=== PATIENT | female | born 1935 | race Caucasian/White ===

== ENCOUNTER 2017-10-22 17:45 | Emergency (ER) | payer MEDICARE, MEDICAID ==
[~2017-10-22] VITALS: Ht 157.5 cm; Wt 49.9 kg
[~2017-10-22 17:45] MED LIST: LEVO500T2 PO; PRED10TA PO; VIT1TABL76 PO
[2017-10-22 18:03] VITALS: BP 117/58
[2017-10-22] MEDS ORDERED: TETanus/Pertussis (Acell)/Diphther VAC/PF (Tdap-Adult) 0.5ml syringe IM ONE (19:05)
[2017-10-22 19:16] LABS: BASOPHILS % (AUTO) 0.4 % (0-1); EOSINOPHILS # (AUTO) 0.1 X10'3 (0-0.9); EOSINOPHILS % (AUTO) 1.7 % (0-6); HEMATOCRIT 40.2 % (35.0-45.0); HEMOGLOBIN 13.6 g/dl (12.0-16.0); LYMPHOCYTES # (AUTO) 2.2 X10'3 (1.1-4.8); LYMPHOCYTES % (AUTO) 26.7 % (21-51); MEAN CORPUSCULAR HEMOGLOBIN 32.9 PG (27.0-31.0); MEAN CORPUSCULAR HGB CONC 33.8 % (33.0-36.5); MEAN CORPUSCULAR VOLUME 97.4 FL (78-98); MEAN PLATELET VOLUME 8.2 FL (7.4-10.4); MONOCYTES # (AUTO) 0.6 X10'3 (0-0.9); MONOCYTES % (AUTO) 7.6 % (2-12); NEUTROPHILS # (AUTO) 5.1 X10'3 (1.8-7.7); NEUTROPHILS % (AUTO) 63.6 % (42-75); PLATELET COUNT 194 X10'3 (140-440); RED BLOOD COUNT 4.12 X10'6 (4.20-5.60); RED CELL DISTRIBUTION WIDTH 15.8 % (11.5-14.5); WHITE BLOOD COUNT 8.1 X10'3 (4.5-11.0)
[2017-10-22 19:32] LABS: ALANINE AMINOTRANSFERASE 24 U/L (12-78); ALBUMIN 3.2 G/DL (3.4-5.0); ALBUMIN/GLOBULIN RATIO 0.8 (1.1-1.5); ALKALINE PHOSPHATASE 95 IU/L (46-116); ANION GAP 12 (8-16); ASPARTATE AMINO TRANSFERASE 36 U/L (10-37); BILIRUBIN,TOTAL 0.5 MG/DL (0.1-1.0); BLOOD UREA NITROGEN 2 MG/DL (7-18); BUN/CREATININE RATIO 4.1 (6.6-38.0); CALCIUM 8.5 MG/DL (8.5-10.1); CHLORIDE 100 MMOL/L (99-107); CREATININE 0.49 MG/DL (0.40-0.90); GLUCOSE 78 MG/DL (70-104); POTASSIUM 3.3 MMOL/L (3.5-5.1); SODIUM 142 MMOL/L (135-145); TOTAL CARBON DIOXIDE 30.1 MMOL/L (24-32); TOTAL PROTEIN 7.3 G/DL (6.4-8.2); eGFR > 90 ML/MIN
[2017-10-22 19:35] LABS: ETHANOL 0.225 GM/DL (0.0-0.010)
== END 2017-10-22 19:24 | disposition left against medical advice (07) ==
LOC: ER 17:45
DX: S00.11XA Contusion of right eyelid and periocular area, initial encounter (principal); S60.511A Abrasion of right hand, initial encounter; F10.129 Alcohol abuse with intoxication, unspecified; J44.9 Chronic obstructive pulmonary disease, unspecified; E11.9 Type 2 diabetes mellitus without complications; F17.200 Nicotine dependence, unspecified, uncomplicated; Z79.899 Other long term (current) drug therapy; Z88.0 Allergy status to penicillin; Z88.2 Allergy status to sulfonamides; W18.39XA Other fall on same level, initial encounter; Y93.89 Activity, other specified; Y92.89 Other specified places as the place of occurrence of the external cause; Y99.8 Other external cause status
CPT/HCPCS: 36415; 80053; 80320; 82140; 84484; 85025; 99284

== ENCOUNTER 2017-10-24 07:08 | Emergency (ER) | payer MEDICARE, MEDICAID ==
[~2017-10-24] VITALS: Ht 149.9 cm; Wt 48.1 kg
[2017-10-24 08:38] VITALS: BP 110/48
== END 2017-10-24 08:41 | disposition home or self-care (01) ==
LOC: ER 07:08
DX: F10.129 Alcohol abuse with intoxication, unspecified (principal); R06.02 Shortness of breath; J44.9 Chronic obstructive pulmonary disease, unspecified; E11.9 Type 2 diabetes mellitus without complications; F17.210 Nicotine dependence, cigarettes, uncomplicated; Z98.890 Other specified postprocedural states; Z88.0 Allergy status to penicillin; Z88.2 Allergy status to sulfonamides
CPT/HCPCS: 99284

== ENCOUNTER 2017-11-03 19:27 | Emergency (ER) | payer MEDICARE, MEDICAID ==
[~2017-11-03 19:27] MED LIST changes: -LEVO500T2 PO
[2017-11-03 20:04] LABS: BASOPHILS % (AUTO) 0.4 % (0-1); EOSINOPHILS # (AUTO) 0.1 X10'3 (0-0.9); HEMATOCRIT 37.8 % (35.0-45.0); HEMOGLOBIN 12.7 g/dl (12.0-16.0); LYMPHOCYTES # (AUTO) 2.8 X10'3 (1.1-4.8); LYMPHOCYTES % (AUTO) 44.2 % (21-51); MEAN CORPUSCULAR HEMOGLOBIN 32.7 PG (27.0-31.0); MEAN CORPUSCULAR HGB CONC 33.6 % (33.0-36.5); MEAN CORPUSCULAR VOLUME 97.3 FL (78-98); MONOCYTES # (AUTO) 0.8 X10'3 (0-0.9); MONOCYTES % (AUTO) 12.2 % (2-12); NEUTROPHILS # (AUTO) 2.6 X10'3 (1.8-7.7); NEUTROPHILS % (AUTO) 41.2 % (42-75); PLATELET COUNT 203 X10'3 (140-440); RED BLOOD COUNT 3.89 X10'6 (4.20-5.60); RED CELL DISTRIBUTION WIDTH 15.2 % (11.5-14.5); WHITE BLOOD COUNT 6.2 X10'3 (4.5-11.0)
[2017-11-03 20:23] LABS: ALANINE AMINOTRANSFERASE 20 U/L (12-78); ALBUMIN 2.8 G/DL (3.4-5.0); ALBUMIN/GLOBULIN RATIO 0.7 (1.1-1.5); ALKALINE PHOSPHATASE 120 IU/L (46-116); ANION GAP 6 (8-16); ASPARTATE AMINO TRANSFERASE 27 U/L (10-37); BILIRUBIN,TOTAL 0.3 MG/DL (0.1-1.0); BLOOD UREA NITROGEN 2 MG/DL (7-18); BUN/CREATININE RATIO 4.8 (6.6-38.0); CALCIUM 8.1 MG/DL (8.5-10.1); CHLORIDE 101 MMOL/L (99-107); CREATININE 0.42 MG/DL (0.40-0.90); GLUCOSE 95 MG/DL (70-104); SODIUM 140 MMOL/L (135-145); TOTAL CARBON DIOXIDE 32.6 MMOL/L (24-32); TOTAL PROTEIN 6.6 G/DL (6.4-8.2); eGFR > 90 ML/MIN
[2017-11-03 20:32] LABS: ETHANOL 0.223 GM/DL (0.0-0.010)
[2017-11-03] MEDS ORDERED: potassium Cl 20 mEq SR tablet PO ONE (20:40)
[2017-11-03 21:05] LABS: CLARITY,URINE Clear (Clear); COLOR,URINE Yellow (Yellow); GLUCOSE, URINE Negative (Neg); KETONES,URINE Negative (Neg); LEUKOCYTE ESTERASE ,URINE Negative (Neg); NITRITES, URINE Negative (Neg); OCCULT BLOOD,URINE Negative (Neg); PH,URINE 6.5 (4.8-8.0); PROTEIN,URINE Negative (Neg); UROBILINOGEN,URINE 0.2 E.U/dL (0.2-1.0)
[2017-11-03 21:08] LABS: UA COLLECTION TYPE OTHER
[2017-11-03 21:17] LABS: URINE AMPHETAMINE SCREEN NEGATIVE (Neg); URINE BARBITUATE SCREEN NEGATIVE (Neg); URINE BENZODIAZEPINES SCREEN NEGATIVE (Neg); URINE CANNABINOID SCREEN NEGATIVE (Neg); URINE COCAINE SCREEN NEGATIVE (Neg); URINE METHADONE SCREEN NEGATIVE (Neg); URINE OPIATE SCREEN NEGATIVE (Neg); URINE PHENCYCLIDINE SCREEN NEGATIVE (Neg)
[2017-11-05 12:44] VITALS: BP 138/91
== END 2017-11-05 12:55 | disposition home or self-care (01) ==
LOC: ER 19:28
DX: F10.129 Alcohol abuse with intoxication, unspecified (principal); R45.851 Suicidal ideations; E87.6 Hypokalemia; J44.9 Chronic obstructive pulmonary disease, unspecified; E11.9 Type 2 diabetes mellitus without complications; F03.90 Unspecified dementia, unspecified severity, without behavioral disturbance, psychotic disturbance, mood disturbance, and anxiety; Z90.49 Acquired absence of other specified parts of digestive tract; Z90.710 Acquired absence of both cervix and uterus; Z88.0 Allergy status to penicillin; Z88.2 Allergy status to sulfonamides; Z79.899 Other long term (current) drug therapy; Y90.9 Presence of alcohol in blood, level not specified
CPT/HCPCS: 36415; 80053; 80305; 80320; 81003; 84443; 84484; 85025; 93005; 99285

== ENCOUNTER 2017-11-10 13:03 | Emergency (ER) | payer MEDICARE, MEDICAID ==
[~2017-11-10] VITALS: Ht 160 cm; Wt 48.0 kg
[2017-11-10] MEDS ORDERED: NICO-687 TOP (13:26)
[2017-11-10 13:39] VITALS: BP 133/76
== END 2017-11-10 13:40 | disposition home or self-care (01) ==
LOC: ER 13:03
DX: Z02.89 Encounter for other administrative examinations (principal); F03.90 Unspecified dementia, unspecified severity, without behavioral disturbance, psychotic disturbance, mood disturbance, and anxiety; J44.9 Chronic obstructive pulmonary disease, unspecified; E11.9 Type 2 diabetes mellitus without complications; F17.200 Nicotine dependence, unspecified, uncomplicated; Z90.49 Acquired absence of other specified parts of digestive tract; Z90.710 Acquired absence of both cervix and uterus; Z88.0 Allergy status to penicillin; Z88.2 Allergy status to sulfonamides
CPT/HCPCS: 99284

== ENCOUNTER 2017-11-13 13:55 | Emergency (ER) | payer MEDICARE, MEDICAID ==
[~2017-11-13] VITALS: Ht 149.9 cm; Wt 48.6 kg
[~2017-11-13 13:55] MED LIST changes: +NICO-687 TOP
[2017-11-13 15:42] VITALS: BP 115/65
== END 2017-11-13 15:47 | disposition home or self-care (01) ==
LOC: ER 13:56
DX: F10.129 Alcohol abuse with intoxication, unspecified (principal); F32.9 Major depressive disorder, single episode, unspecified; F03.90 Unspecified dementia, unspecified severity, without behavioral disturbance, psychotic disturbance, mood disturbance, and anxiety; J44.9 Chronic obstructive pulmonary disease, unspecified; E11.9 Type 2 diabetes mellitus without complications; Z88.0 Allergy status to penicillin; Z88.2 Allergy status to sulfonamides
CPT/HCPCS: 99284

== ENCOUNTER 2018-01-23 20:57 | Emergency (ER) | payer MEDICARE, MEDICAID ==
[~2018-01-23] VITALS: Ht 149.9 cm; Wt 48.0 kg
[~2018-01-23 20:57] MED LIST changes: -NICO-687 TOP
[2018-01-23 21:03] VITALS: BP 109/53
[2018-01-23 21:44] LABS: BASOPHILS # (AUTO) 0.1 X10'3 (0-0.2); BASOPHILS % (AUTO) 0.9 % (0-1); EOSINOPHILS # (AUTO) 0.5 X10'3 (0-0.9); EOSINOPHILS % (AUTO) 6.3 % (0-6); HEMATOCRIT 39.1 % (35.0-45.0); HEMOGLOBIN 13.4 g/dl (12.0-16.0); LYMPHOCYTES # (AUTO) 1.9 X10'3 (1.1-4.8); LYMPHOCYTES % (AUTO) 24.9 % (21-51); MEAN CORPUSCULAR HEMOGLOBIN 32.6 PG (27.0-31.0); MEAN CORPUSCULAR HGB CONC 34.2 % (33.0-36.5); MEAN CORPUSCULAR VOLUME 95.1 FL (78-98); MEAN PLATELET VOLUME 8.1 FL (7.4-10.4); MONOCYTES # (AUTO) 0.7 X10'3 (0-0.9); MONOCYTES % (AUTO) 8.9 % (2-12); NEUTROPHILS # (AUTO) 4.4 X10'3 (1.8-7.7); PLATELET COUNT 205 X10'3 (140-440); RED BLOOD COUNT 4.11 X10'6 (4.20-5.60); RED CELL DISTRIBUTION WIDTH 14.8 % (11.5-14.5); WHITE BLOOD COUNT 7.5 X10'3 (4.5-11.0)
[2018-01-23 21:55] LABS: PARTIAL THROMBOPLASTIN TIME 30 SECONDS (22-32); PROTHROMBIN TIME 10.6 SECONDS (9.0-12.0)
[2018-01-23] MEDS ORDERED: HYDROmorphone 2mg tablet PO PRN (22:05)
[2018-01-23 22:06] LABS: ALANINE AMINOTRANSFERASE 21 U/L (12-78); ALBUMIN/GLOBULIN RATIO 0.8 (1.1-1.5); ALKALINE PHOSPHATASE 84 IU/L (46-116); ANION GAP 10 (8-16); ASPARTATE AMINO TRANSFERASE 27 U/L (10-37); BILIRUBIN,TOTAL 0.3 MG/DL (0.1-1.0); BLOOD UREA NITROGEN 4 MG/DL (7-18); BUN/CREATININE RATIO 9.5 (6.6-38.0); CALCIUM 8.5 MG/DL (8.5-10.1); CHLORIDE 99 MMOL/L (99-107); CREATININE 0.42 MG/DL (0.40-0.90); ETHANOL 0.124 GM/DL (0.0-0.010); GLUCOSE 111 MG/DL (70-104); POTASSIUM 3.3 MMOL/L (3.5-5.1); SODIUM 136 MMOL/L (135-145); TOTAL CARBON DIOXIDE 26.9 MMOL/L (24-32); TOTAL PROTEIN 6.8 G/DL (6.4-8.2); eGFR > 90 ML/MIN
== END 2018-01-23 22:58 | disposition left against medical advice (07) ==
LOC: ER 20:57
DX: R07.9 Chest pain, unspecified (principal); R06.02 Shortness of breath; R11.0 Nausea; J44.9 Chronic obstructive pulmonary disease, unspecified; E11.9 Type 2 diabetes mellitus without complications; F17.210 Nicotine dependence, cigarettes, uncomplicated; Z88.0 Allergy status to penicillin; Z88.2 Allergy status to sulfonamides; Z90.710 Acquired absence of both cervix and uterus; Z90.49 Acquired absence of other specified parts of digestive tract
CPT/HCPCS: 36415; 71045; 80053; 80320; 83735; 83880; 84484; 85025; 85610; 85730; 99285

== ENCOUNTER 2018-01-26 20:36 | Emergency (ER) | payer MEDICARE, MEDICAID ==
[~2018-01-26] VITALS: Ht 149.9 cm; Wt 44.6 kg
[2018-01-26 21:27] LABS: BASOPHILS # (AUTO) 0.1 X10'3 (0-0.2); EOSINOPHILS # (AUTO) 0.3 X10'3 (0-0.9); EOSINOPHILS % (AUTO) 4.7 % (0-6); HEMATOCRIT 38.9 % (35.0-45.0); HEMOGLOBIN 13.5 g/dl (12.0-16.0); LYMPHOCYTES # (AUTO) 2.3 X10'3 (1.1-4.8); LYMPHOCYTES % (AUTO) 34.5 % (21-51); MEAN CORPUSCULAR HEMOGLOBIN 32.8 PG (27.0-31.0); MEAN CORPUSCULAR HGB CONC 34.7 % (33.0-36.5); MEAN CORPUSCULAR VOLUME 94.7 FL (78-98); MEAN PLATELET VOLUME 7.6 FL (7.4-10.4); MONOCYTES # (AUTO) 0.7 X10'3 (0-0.9); MONOCYTES % (AUTO) 10.2 % (2-12); NEUTROPHILS # (AUTO) 3.3 X10'3 (1.8-7.7); NEUTROPHILS % (AUTO) 49.6 % (42-75); PLATELET COUNT 230 X10'3 (140-440); RED BLOOD COUNT 4.11 X10'6 (4.20-5.60); RED CELL DISTRIBUTION WIDTH 14.7 % (11.5-14.5); WHITE BLOOD COUNT 6.6 X10'3 (4.5-11.0)
[2018-01-26 21:39] LABS: PARTIAL THROMBOPLASTIN TIME 31 SECONDS (22-32); PROTHROMBIN TIME 10.4 SECONDS (9.0-12.0)
[2018-01-26 21:44] LABS: ALANINE AMINOTRANSFERASE 16 U/L (12-78); ALBUMIN 3.1 G/DL (3.4-5.0); ALBUMIN/GLOBULIN RATIO 0.8 (1.1-1.5); ALKALINE PHOSPHATASE 94 IU/L (46-116); ANION GAP 12 (8-16); ASPARTATE AMINO TRANSFERASE 27 U/L (10-37); BILIRUBIN,TOTAL 0.3 MG/DL (0.1-1.0); BLOOD UREA NITROGEN 4 MG/DL (7-18); BUN/CREATININE RATIO 11.8 (6.6-38.0); CALCIUM 8.4 MG/DL (8.5-10.1); CHLORIDE 99 MMOL/L (99-107); CREATININE 0.34 MG/DL (0.40-0.90); GLUCOSE 103 MG/DL (70-104); POTASSIUM 3.3 MMOL/L (3.5-5.1); SODIUM 137 MMOL/L (135-145); TOTAL CARBON DIOXIDE 26.2 MMOL/L (24-32); TOTAL PROTEIN 7.1 G/DL (6.4-8.2); eGFR > 90 ML/MIN
[2018-01-26 22:23] VITALS: BP 107/54
[2018-01-26] MEDS: potassium Cl oral solution 20 MEQ/15 ML PO ONE ×2 (22:40→22:42)
== END 2018-01-26 23:55 | disposition home or self-care (01) ==
LOC: ER 20:36
DX: F10.129 Alcohol abuse with intoxication, unspecified (principal); E11.9 Type 2 diabetes mellitus without complications; I49.9 Cardiac arrhythmia, unspecified; J44.9 Chronic obstructive pulmonary disease, unspecified; Z90.710 Acquired absence of both cervix and uterus; Z59.0 Homelessness; Z88.0 Allergy status to penicillin; Z88.2 Allergy status to sulfonamides; Z79.899 Other long term (current) drug therapy; Y90.0 Blood alcohol level of less than 20 mg/100 ml
CPT/HCPCS: 36415; 71045; 80053; 84484; 85025; 85610; 85730; 93005; 99285

== ENCOUNTER 2018-01-27 20:45 | Emergency (ER) | payer MEDICARE, MEDICAID ==
[~2018-01-27] VITALS: Ht 149.9 cm; Wt 45.4 kg
[2018-01-27 20:55] VITALS: BP 129/73
== END 2018-01-27 21:58 | disposition left against medical advice (07) ==
LOC: ER 20:46
DX: F41.9 Anxiety disorder, unspecified (principal); R06.02 Shortness of breath; Z53.21 Procedure and treatment not carried out due to patient leaving prior to being seen by health care provider
CPT/HCPCS: 93005

== ENCOUNTER 2018-01-27 23:09 | Emergency (ER) | payer MEDICARE, MEDICAID ==
[~2018-01-27] VITALS: Ht 162.6 cm; Wt 45.4 kg
[2018-01-27 23:36] VITALS: BP 121/88
== END 2018-01-28 00:07 | disposition home or self-care (01) ==
LOC: ER 23:11
DX: T73.0XXA Starvation, initial encounter (principal); J44.9 Chronic obstructive pulmonary disease, unspecified; F17.210 Nicotine dependence, cigarettes, uncomplicated; E11.9 Type 2 diabetes mellitus without complications; Z59.0 Homelessness; Z98.890 Other specified postprocedural states; Z88.0 Allergy status to penicillin; Z88.2 Allergy status to sulfonamides
CPT/HCPCS: 99283

== ENCOUNTER 2018-01-30 08:30 | Emergency (ER) | payer MEDICARE, MEDICAID ==
[2018-01-30] MEDS ORDERED: nitroGLYCERIN 0.4mg SUBLingual tab SL PRN (08:40)
[2018-01-30] MEDS ORDERED: aspirin 81mg tab.chew PO ONE (08:40)
[2018-01-30 08:57] LABS: BASOPHILS % (AUTO) 0.5 % (0-1); EOSINOPHILS # (AUTO) 0.1 X10'3 (0-0.9); EOSINOPHILS % (AUTO) 1.9 % (0-6); HEMATOCRIT 41.1 % (35.0-45.0); LYMPHOCYTES % (AUTO) 13.5 % (21-51); MEAN CORPUSCULAR HGB CONC 34.1 % (33.0-36.5); MEAN CORPUSCULAR VOLUME 93.8 FL (78-98); MEAN PLATELET VOLUME 8.2 FL (7.4-10.4); MONOCYTES # (AUTO) 0.7 X10'3 (0-0.9); MONOCYTES % (AUTO) 9.7 % (2-12); NEUTROPHILS # (AUTO) 5.3 X10'3 (1.8-7.7); NEUTROPHILS % (AUTO) 74.4 % (42-75); PLATELET COUNT 209 X10'3 (140-440); RED BLOOD COUNT 4.38 X10'6 (4.20-5.60); RED CELL DISTRIBUTION WIDTH 13.5 % (11.5-14.5); WHITE BLOOD COUNT 7.1 X10'3 (4.5-11.0)
[2018-01-30 09:13] LABS: ANION GAP 7 (8-16); BILIRUBIN,TOTAL 0.6 MG/DL (0.1-1.0); BLOOD UREA NITROGEN 5 MG/DL (7-18); BUN/CREATININE RATIO 8.2 (6.6-38.0); CALCIUM 8.7 MG/DL (8.5-10.1); CHLORIDE 100 MMOL/L (99-107); CREATININE 0.61 MG/DL (0.40-0.90); GLUCOSE 191 MG/DL (70-104); MAGNESIUM 1.7 MG/DL (1.5-2.4); POTASSIUM 3.3 MMOL/L (3.5-5.1); SODIUM 139 MMOL/L (135-145); TOTAL CARBON DIOXIDE 31.7 MMOL/L (24-32); TOTAL PROTEIN 6.8 G/DL (6.4-8.2); eGFR > 90 ML/MIN
[2018-01-30 09:14] LABS: ALANINE AMINOTRANSFERASE 21 U/L (12-78); ALBUMIN 2.9 G/DL (3.4-5.0); ALBUMIN/GLOBULIN RATIO 0.7 (1.1-1.5); ALKALINE PHOSPHATASE 83 IU/L (46-116); ASPARTATE AMINO TRANSFERASE 24 U/L (10-37)
[2018-01-30 09:15] LABS: ETHANOL < 0.010 GM/DL (0.0-0.010)
[2018-01-30 11:56] VITALS: BP 136/55
== END 2018-01-30 12:29 | disposition home or self-care (01) ==
LOC: ER 08:31
DX: R07.9 Chest pain, unspecified (principal); R06.02 Shortness of breath; R53.1 Weakness; R11.0 Nausea; R51 Headache; J44.9 Chronic obstructive pulmonary disease, unspecified; E11.9 Type 2 diabetes mellitus without complications; Z90.710 Acquired absence of both cervix and uterus; Z88.2 Allergy status to sulfonamides; Z88.0 Allergy status to penicillin; Z59.0 Homelessness
CPT/HCPCS: 36415; 71045; 80053; 80320; 83735; 83880; 84484; 85025; 93005; 99285

== ENCOUNTER 2018-02-06 17:32 | Emergency (ER) | payer MEDICARE, MEDICAID ==
[~2018-02-06] VITALS: Ht 149.9 cm; Wt 47.6 kg
[2018-02-06 19:36] VITALS: BP 142/64
== END 2018-02-06 21:07 | disposition home or self-care (01) ==
LOC: ER 17:33
DX: S00.03XA Contusion of scalp, initial encounter (principal); S00.01XA Abrasion of scalp, initial encounter; S09.90XA Unspecified injury of head, initial encounter; F10.10 Alcohol abuse, uncomplicated; J44.9 Chronic obstructive pulmonary disease, unspecified; E11.9 Type 2 diabetes mellitus without complications; F17.200 Nicotine dependence, unspecified, uncomplicated; Z90.49 Acquired absence of other specified parts of digestive tract; Z90.710 Acquired absence of both cervix and uterus; Z88.0 Allergy status to penicillin; Z88.2 Allergy status to sulfonamides; Z79.899 Other long term (current) drug therapy; W10.9XXA Fall (on) (from) unspecified stairs and steps, initial encounter; Y93.01 Activity, walking, marching and hiking; Y92.89 Other specified places as the place of occurrence of the external cause; Y90.9 Presence of alcohol in blood, level not specified; Y99.9 Unspecified external cause status
CPT/HCPCS: 70450; 72125; 99284; A6449

== ENCOUNTER 2018-02-10 20:44 | Emergency (ER) | payer MEDICARE, MEDICAID ==
[~2018-02-10] VITALS: Ht 152.4 cm; Wt 47.2 kg
[2018-02-10 20:49] VITALS: BP 129/65
== END 2018-02-10 21:27 | disposition left against medical advice (07) ==
LOC: ER 20:44
DX: R06.02 Shortness of breath (principal); Z53.21 Procedure and treatment not carried out due to patient leaving prior to being seen by health care provider
CPT/HCPCS: 93005

== ENCOUNTER 2018-02-11 09:06 | Inpatient (IN) | payer MEDICARE, MEDICAID ==
[~2018-02-11] VITALS: Ht 162.6 cm; Wt 49.0 kg
[2018-02-11] MEDS ORDERED: ipratropium/albuterol 3ml nebule NEB ONE (09:10)
[2018-02-11] MEDS ORDERED: normal saline 1000ML IV soln IVB ONE (09:10)
[2018-02-11 09:40] LABS: BASOPHILS % (AUTO) 0.3 % (0-1); EOSINOPHILS # (AUTO) 0.2 X10'3 (0-0.9); EOSINOPHILS % (AUTO) 2.3 % (0-6); HEMATOCRIT 40.5 % (35.0-45.0); LYMPHOCYTES # (AUTO) 1.1 X10'3 (1.1-4.8); LYMPHOCYTES % (AUTO) 13.2 % (21-51); MEAN CORPUSCULAR HEMOGLOBIN 32.2 PG (27.0-31.0); MEAN CORPUSCULAR HGB CONC 34.6 % (33.0-36.5); MEAN CORPUSCULAR VOLUME 93.1 FL (78-98); MONOCYTES # (AUTO) 0.7 X10'3 (0-0.9); MONOCYTES % (AUTO) 8.6 % (2-12); NEUTROPHILS # (AUTO) 6.3 X10'3 (1.8-7.7); NEUTROPHILS % (AUTO) 75.6 % (42-75); PLATELET COUNT 260 X10'3 (140-440); RED BLOOD COUNT 4.35 X10'6 (4.20-5.60); RED CELL DISTRIBUTION WIDTH 14.5 % (11.5-14.5); WHITE BLOOD COUNT 8.4 X10'3 (4.5-11.0)
[2018-02-11] MEDS ORDERED: levoFLOXACIN-Levaquin 750MG/D5 150 ML IV ONE (09:40)
[2018-02-11 09:59] LABS: ALANINE AMINOTRANSFERASE 16 U/L (12-78); ALBUMIN 3.1 G/DL (3.4-5.0); ALBUMIN/GLOBULIN RATIO 0.8 (1.1-1.5); ALKALINE PHOSPHATASE 88 IU/L (46-116); ANION GAP 8 (8-16); ASPARTATE AMINO TRANSFERASE 17 U/L (10-37); BILIRUBIN,TOTAL 0.6 MG/DL (0.1-1.0); BLOOD UREA NITROGEN 9 MG/DL (7-18); BUN/CREATININE RATIO 15.5 (6.6-38.0); CALCIUM 8.9 MG/DL (8.5-10.1); CHLORIDE 101 MMOL/L (99-107); CREATININE 0.58 MG/DL (0.40-0.90); GLUCOSE 150 MG/DL (70-104); POTASSIUM 3.9 MMOL/L (3.5-5.1); SODIUM 138 MMOL/L (135-145); eGFR > 90 ML/MIN
[2018-02-11] MEDS ORDERED: mag hydrox/Alum hydrox/simeth 30ml oral suspension PO PRN (10:05)
[2018-02-11] MEDS ORDERED: magnesium 4gm in 100ml NS 100 ML IV PRN (10:05)
[2018-02-11] MEDS ORDERED: magnesium 2GM in 50ml NS 50 ML IV PRN (10:05)
[2018-02-11] MEDS ORDERED: potassium Cl 40MEQ/NS 500ml 500 ML IV PRN ×2 (10:05)
[2018-02-11] MEDS ORDERED: haloperidol lactate 5mg/ml inj IM PRN (10:05)
[2018-02-11] MEDS ORDERED: magnesium hydroxide 30ml (MOM) UD suspension PO PRN (10:05)
[2018-02-11] MEDS ORDERED: dextrose ORAL solution 15 GM/59 ML bottle PO PRN ×2 (10:05)
[2018-02-11] MEDS ORDERED: potassium Cl 20 mEq SR tablet PO PRN ×2 (10:05)
[2018-02-11] MEDS ORDERED: LORazepam 2 mg/ml vial IV PRN ×2 (10:05)
[2018-02-11] MEDS ORDERED: MESSAGE TO PHARMACY PO ONE (10:05)
[2018-02-11] MEDS ORDERED: ondansetron/PF 4mg/2ml inj IV PRN (10:05)
[2018-02-11] MEDS ORDERED: dextrose 50%-water 50ml dispensing syringe IV PRN ×3 (10:05)
[2018-02-11] MEDS ORDERED: glucagon, human recombinant 1mg kit SUBCUT PRN (10:05)
[2018-02-11] MEDS ORDERED: acetaminophen 325mg tablet PO PRN ×2 (10:05)
[2018-02-11] MEDS ORDERED: insulin Lispro (HumaLOG) vial - multi-dose SQ SCH (10:05)
[2018-02-11] MEDS: normal saline 1000ml 1,000 ML IV SCH ×2 (10:43→20:03)
[2018-02-11 10:46] LABS: HEMOGLOBIN A1C 5.6 % (4.5-6.2)
[2018-02-11] MEDS: folic acid inj. 2 MG, thiamine inj. 100 MG, MVI, adult No.4 with vit. K 10 ML in dextro... IV SCH ×4 (11:18)
[2018-02-11] MEDS: nicotine 21mg patch - 24 hr TD SCH (18:10)
[2018-02-11 19:30] VITALS: BP 145/66
[2018-02-11] MEDS: lactobacillus rhamnosus 10,000 MMU CELLS/CAPSULE PO SCH ×2 (20:00→20:03)
[2018-02-11] MEDS: budesonide 0.5mg/2ml UD nebule IH SCH (20:00)
[2018-02-11] MEDS: insulin glargine (Lantus) pen - multi-dose SQ SCH (21:00)
[2018-02-12] VITALS: BP 150/60
[2018-02-12 05:55] LABS: BASOPHILS % (AUTO) 0.5 % (0-1); EOSINOPHILS # (AUTO) 0.6 X10'3 (0-0.9); EOSINOPHILS % (AUTO) 6.4 % (0-6); HEMATOCRIT 37.2 % (35.0-45.0); HEMOGLOBIN 12.6 g/dl (12.0-16.0); LYMPHOCYTES # (AUTO) 1.7 X10'3 (1.1-4.8); LYMPHOCYTES % (AUTO) 19.4 % (21-51); MEAN CORPUSCULAR HEMOGLOBIN 31.8 PG (27.0-31.0); MEAN CORPUSCULAR HGB CONC 33.8 % (33.0-36.5); MEAN CORPUSCULAR VOLUME 93.9 FL (78-98); MEAN PLATELET VOLUME 8.4 FL (7.4-10.4); MONOCYTES # (AUTO) 0.8 X10'3 (0-0.9); MONOCYTES % (AUTO) 9.5 % (2-12); NEUTROPHILS # (AUTO) 5.5 X10'3 (1.8-7.7); NEUTROPHILS % (AUTO) 64.2 % (42-75); PLATELET COUNT 218 X10'3 (140-440); RED BLOOD COUNT 3.96 X10'6 (4.20-5.60); RED CELL DISTRIBUTION WIDTH 14.4 % (11.5-14.5); WHITE BLOOD COUNT 8.6 X10'3 (4.5-11.0)
[2018-02-12] MEDS: normal saline 1000ml 1,000 ML IV SCH ×2 (06:03→16:03)
[2018-02-12 06:29] LABS: ALANINE AMINOTRANSFERASE 14 U/L (12-78); ALBUMIN 2.6 G/DL (3.4-5.0); ALBUMIN/GLOBULIN RATIO 0.8 (1.1-1.5); ALKALINE PHOSPHATASE 71 IU/L (46-116); ANION GAP 8 (8-16); ASPARTATE AMINO TRANSFERASE 16 U/L (10-37); BILIRUBIN,TOTAL 0.6 MG/DL (0.1-1.0); BLOOD UREA NITROGEN 6 MG/DL (7-18); BUN/CREATININE RATIO 11.3 (6.6-38.0); CALCIUM 8.5 MG/DL (8.5-10.1); CHLORIDE 104 MMOL/L (99-107); CHOL/HDL RATIO 2.8 (0.00-4.99); CHOLESTEROL 135 MG/DL (0-200); CREATININE 0.53 MG/DL (0.40-0.90); GLUCOSE 109 MG/DL (70-104); HDL CHOLESTEROL 48 MG/DL (35-60); LDL CHOLESTEROL 66 MG/DL (50-100); MAGNESIUM 1.7 MG/DL (1.5-2.4); POTASSIUM 3.3 MMOL/L (3.5-5.1); SODIUM 140 MMOL/L (135-145); TOTAL CARBON DIOXIDE 27.8 MMOL/L (24-32); TOTAL PROTEIN 5.9 G/DL (6.4-8.2); TRIGLYCERIDES 69 MG/DL (20-135); eGFR > 90 ML/MIN
[2018-02-12 07:00] VITALS: BP 147/63
[2018-02-12] MEDS: budesonide 0.5mg/2ml UD nebule IH SCH ×2 (07:04→19:07)
[2018-02-12] MEDS: levoFLOXACIN-Levaquin 750MG/D5 150 ML IV SCH (07:22)
[2018-02-12] MEDS: lactobacillus rhamnosus 10,000 MMU CELLS/CAPSULE PO SCH ×2 (07:22→20:32)
[2018-02-12] MEDS: enoxaparin 40mg/0.4ml syringe SQ SCH (07:31)
[2018-02-12] MEDS: nicotine 21mg patch - 24 hr TD SCH (07:31)
[2018-02-12] MEDS: K and/or MAG REPLACEMENT MC SCH (08:00)
[2018-02-12] MEDS: folic acid inj. 2 MG, thiamine inj. 100 MG, MVI, adult No.4 with vit. K 10 ML in dextro... IV SCH ×4 (10:05)
[2018-02-12] MEDS ORDERED: LIDOcaine 1% 30ml vial 5 ML in potassium Cl 40MEQ/NS 500ml 500 ML IV ONE (10:25)
[2018-02-12 13:09] VITALS: BP 137/73
[2018-02-12] MEDS ORDERED: NO HOME MEDS (14:17)
[2018-02-12 18:00] VITALS: BP 135/75
[2018-02-12] MEDS: insulin glargine (Lantus) pen - multi-dose SQ SCH (21:00)
[2018-02-12] MEDS: ipratropium/albuterol 3ml nebule NEB PRN (22:35)
[2018-02-13] VITALS: BP 148/73
[2018-02-13] MEDS: normal saline 1000ml 1,000 ML IV SCH ×3 (01:47→22:03)
[2018-02-13 05:24] LABS: BASOPHILS % (AUTO) 0.5 % (0-1); EOSINOPHILS # (AUTO) 0.7 X10'3 (0-0.9); EOSINOPHILS % (AUTO) 7.2 % (0-6); HEMATOCRIT 37.9 % (35.0-45.0); HEMOGLOBIN 12.9 g/dl (12.0-16.0); LYMPHOCYTES # (AUTO) 1.6 X10'3 (1.1-4.8); LYMPHOCYTES % (AUTO) 17.1 % (21-51); MEAN CORPUSCULAR HEMOGLOBIN 31.8 PG (27.0-31.0); MEAN CORPUSCULAR HGB CONC 33.9 % (33.0-36.5); MEAN CORPUSCULAR VOLUME 93.8 FL (78-98); MEAN PLATELET VOLUME 8.2 FL (7.4-10.4); MONOCYTES # (AUTO) 0.8 X10'3 (0-0.9); MONOCYTES % (AUTO) 9.1 % (2-12); NEUTROPHILS % (AUTO) 66.1 % (42-75); PLATELET COUNT 218 X10'3 (140-440); RED BLOOD COUNT 4.04 X10'6 (4.20-5.60); RED CELL DISTRIBUTION WIDTH 14.5 % (11.5-14.5); WHITE BLOOD COUNT 9.1 X10'3 (4.5-11.0)
[2018-02-13 05:43] LABS: ALANINE AMINOTRANSFERASE 11 U/L (12-78); ALBUMIN 2.6 G/DL (3.4-5.0); ALBUMIN/GLOBULIN RATIO 0.7 (1.1-1.5); ALKALINE PHOSPHATASE 75 IU/L (46-116); ANION GAP 8 (8-16); ASPARTATE AMINO TRANSFERASE 15 U/L (10-37); BILIRUBIN,TOTAL 0.6 MG/DL (0.1-1.0); BLOOD UREA NITROGEN 5 MG/DL (7-18); BUN/CREATININE RATIO 10.6 (6.6-38.0); CALCIUM 8.3 MG/DL (8.5-10.1); CHLORIDE 101 MMOL/L (99-107); CREATININE 0.47 MG/DL (0.40-0.90); GLUCOSE 120 MG/DL (70-104); MAGNESIUM 1.7 MG/DL (1.5-2.4); POTASSIUM 3.9 MMOL/L (3.5-5.1); SODIUM 136 MMOL/L (135-145); TOTAL CARBON DIOXIDE 26.7 MMOL/L (24-32); TOTAL PROTEIN 6.1 G/DL (6.4-8.2); eGFR > 90 ML/MIN
[2018-02-13 07:00] VITALS: BP 142/73
[2018-02-13] MEDS: lactobacillus rhamnosus 10,000 MMU CELLS/CAPSULE PO SCH ×2 (07:29→21:49)
[2018-02-13] MEDS: nicotine 21mg patch - 24 hr TD SCH (07:30)
[2018-02-13] MEDS: levoFLOXACIN-Levaquin 750MG/D5 150 ML IV SCH (07:31)
[2018-02-13] MEDS: K and/or MAG REPLACEMENT MC SCH (07:32)
[2018-02-13] MEDS: enoxaparin 40mg/0.4ml syringe SQ SCH (08:00)
[2018-02-13] MEDS: budesonide 0.5mg/2ml UD nebule IH SCH ×2 (09:01→21:18)
[2018-02-13] MEDS: folic acid inj. 2 MG, thiamine inj. 100 MG, MVI, adult No.4 with vit. K 10 ML in dextro... IV SCH ×4 (09:17)
[2018-02-13 11:43] VITALS: BP 154/79
[2018-02-13 17:51] VITALS: BP 141/73
[2018-02-13 18:00] VITALS: BP 144/53
[2018-02-13] MEDS: insulin glargine (Lantus) pen - multi-dose SQ SCH (21:00)
[2018-02-14] VITALS: BP 148/81
[2018-02-14] MEDS: ipratropium/albuterol 3ml nebule NEB PRN (00:03)
[2018-02-14 05:32] LABS: BASOPHILS % (AUTO) 0.2 % (0-1); EOSINOPHILS # (AUTO) 0.6 X10'3 (0-0.9); EOSINOPHILS % (AUTO) 6.1 % (0-6); HEMATOCRIT 36.1 % (35.0-45.0); HEMOGLOBIN 12.3 g/dl (12.0-16.0); LYMPHOCYTES # (AUTO) 1.6 X10'3 (1.1-4.8); LYMPHOCYTES % (AUTO) 16.2 % (21-51); MEAN CORPUSCULAR HEMOGLOBIN 31.5 PG (27.0-31.0); MEAN CORPUSCULAR VOLUME 92.7 FL (78-98); MEAN PLATELET VOLUME 8.4 FL (7.4-10.4); MONOCYTES % (AUTO) 9.9 % (2-12); NEUTROPHILS # (AUTO) 6.5 X10'3 (1.8-7.7); NEUTROPHILS % (AUTO) 67.6 % (42-75); PLATELET COUNT 208 X10'3 (140-440); RED BLOOD COUNT 3.89 X10'6 (4.20-5.60); RED CELL DISTRIBUTION WIDTH 14.1 % (11.5-14.5); WHITE BLOOD COUNT 9.6 X10'3 (4.5-11.0)
[2018-02-14] MEDS: normal saline 1000ml 1,000 ML IV SCH ×2 (05:40→18:03)
[2018-02-14 06:07] LABS: ALANINE AMINOTRANSFERASE 15 U/L (12-78); ALBUMIN 2.5 G/DL (3.4-5.0); ALBUMIN/GLOBULIN RATIO 0.7 (1.1-1.5); ALKALINE PHOSPHATASE 68 IU/L (46-116); ANION GAP 8 (8-16); ASPARTATE AMINO TRANSFERASE 15 U/L (10-37); BILIRUBIN,TOTAL 0.7 MG/DL (0.1-1.0); BLOOD UREA NITROGEN 6 MG/DL (7-18); BUN/CREATININE RATIO 14.3 (6.6-38.0); CALCIUM 8.4 MG/DL (8.5-10.1); CHLORIDE 102 MMOL/L (99-107); CREATININE 0.42 MG/DL (0.40-0.90); GLUCOSE 113 MG/DL (70-104); MAGNESIUM 1.6 MG/DL (1.5-2.4); POTASSIUM 3.4 MMOL/L (3.5-5.1); SODIUM 136 MMOL/L (135-145); TOTAL CARBON DIOXIDE 26.5 MMOL/L (24-32); TOTAL PROTEIN 6.1 G/DL (6.4-8.2); eGFR > 90 ML/MIN
[2018-02-14] MEDS: budesonide 0.5mg/2ml UD nebule IH SCH ×2 (07:37→19:49)
[2018-02-14] MEDS: nicotine 21mg patch - 24 hr TD SCH (08:00)
[2018-02-14] MEDS: enoxaparin 40mg/0.4ml syringe SQ SCH (08:00)
[2018-02-14] MEDS: K and/or MAG REPLACEMENT MC SCH (08:00)
[2018-02-14 08:43] VITALS: BP 134/81
[2018-02-14] MEDS: thiamine 100mg tablet PO SCH (09:04)
[2018-02-14] MEDS: folic acid 1mg tablet PO SCH (09:04)
[2018-02-14] MEDS: multivitamins, therapeutics tablet PO SCH (09:04)
[2018-02-14] MEDS: lactobacillus rhamnosus 10,000 MMU CELLS/CAPSULE PO SCH ×2 (09:04→19:48)
[2018-02-14] MEDS: levoFLOXACIN-Levaquin 750MG/D5 150 ML IV SCH (09:06)
[2018-02-14 12:45] VITALS: BP 140/70
[2018-02-14] MEDS ORDERED: magnesium Cl slow-release 64mg tablet PO PRN (13:55)
[2018-02-14] MEDS ORDERED: potassium Cl 40MEQ/NS 500ml 500 ML IV PRN ×2 (13:55)
[2018-02-14] MEDS ORDERED: magnesium 4gm in 100ml NS 100 ML IV PRN (13:55)
[2018-02-14] MEDS ORDERED: magnesium 2GM in 50ml NS 50 ML IV PRN (13:55)
[2018-02-14] MEDS ORDERED: potassium Cl 20 mEq SR tablet PO PRN (13:55)
[2018-02-14] MEDS: potassium Cl 20 mEq SR tablet PO PRN ×2 (14:02→19:48)
[2018-02-14 18:00] VITALS: BP 151/84
[2018-02-14 18:10] VITALS: BP 149/77
[2018-02-14] MEDS: insulin glargine (Lantus) pen - multi-dose SQ SCH (21:00)
[2018-02-15] MEDS: normal saline 1000ml 1,000 ML IV SCH ×2 (04:27→14:03)
[2018-02-15 06:16] LABS: BASOPHILS # (AUTO) 0.1 X10'3 (0-0.2); BASOPHILS % (AUTO) 0.5 % (0-1); EOSINOPHILS # (AUTO) 0.7 X10'3 (0-0.9); EOSINOPHILS % (AUTO) 6.7 % (0-6); HEMATOCRIT 38.7 % (35.0-45.0); HEMOGLOBIN 13.1 g/dl (12.0-16.0); LYMPHOCYTES # (AUTO) 1.6 X10'3 (1.1-4.8); LYMPHOCYTES % (AUTO) 15.9 % (21-51); MEAN CORPUSCULAR HEMOGLOBIN 31.5 PG (27.0-31.0); MEAN CORPUSCULAR HGB CONC 33.8 % (33.0-36.5); MEAN CORPUSCULAR VOLUME 93.3 FL (78-98); MEAN PLATELET VOLUME 8.6 FL (7.4-10.4); MONOCYTES % (AUTO) 10.3 % (2-12); NEUTROPHILS # (AUTO) 6.7 X10'3 (1.8-7.7); NEUTROPHILS % (AUTO) 66.6 % (42-75); PLATELET COUNT 214 X10'3 (140-440); RED BLOOD COUNT 4.14 X10'6 (4.20-5.60); RED CELL DISTRIBUTION WIDTH 14.3 % (11.5-14.5)
[2018-02-15 06:32] LABS: ALANINE AMINOTRANSFERASE 13 U/L (12-78); ALBUMIN 2.6 G/DL (3.4-5.0); ALBUMIN/GLOBULIN RATIO 0.7 (1.1-1.5); ALKALINE PHOSPHATASE 69 IU/L (46-116); ANION GAP 9 (8-16); ASPARTATE AMINO TRANSFERASE 14 U/L (10-37); BILIRUBIN,TOTAL 0.6 MG/DL (0.1-1.0); BLOOD UREA NITROGEN 6 MG/DL (7-18); CALCIUM 8.7 MG/DL (8.5-10.1); CHLORIDE 101 MMOL/L (99-107); CREATININE 0.43 MG/DL (0.40-0.90); GLUCOSE 115 MG/DL (70-104); MAGNESIUM 1.7 MG/DL (1.5-2.4); POTASSIUM 4.1 MMOL/L (3.5-5.1); SODIUM 136 MMOL/L (135-145); TOTAL CARBON DIOXIDE 25.7 MMOL/L (24-32); TOTAL PROTEIN 6.4 G/DL (6.4-8.2); eGFR > 90 ML/MIN
[2018-02-15] MEDS: K and/or MAG REPLACEMENT MC SCH (06:41)
[2018-02-15 07:00] VITALS: BP 138/77
[2018-02-15] MEDS: folic acid 1mg tablet PO SCH (07:17)
[2018-02-15] MEDS: lactobacillus rhamnosus 10,000 MMU CELLS/CAPSULE PO SCH (07:17)
[2018-02-15] MEDS: multivitamins, therapeutics tablet PO SCH (07:17)
[2018-02-15] MEDS: thiamine 100mg tablet PO SCH (07:17)
[2018-02-15] MEDS: levoFLOXACIN-Levaquin 750MG/D5 150 ML IV SCH (07:17)
[2018-02-15] MEDS: nicotine 21mg patch - 24 hr TD SCH (08:00)
[2018-02-15] MEDS: enoxaparin 40mg/0.4ml syringe SQ SCH (08:00)
[2018-02-15] MEDS: budesonide 0.5mg/2ml UD nebule IH SCH ×2 (08:37→19:44)
[2018-02-15 11:59] VITALS: BP 147/67
[2018-02-15] MEDS ORDERED: MULT-1179 PO (14:47)
[2018-02-15] MEDS ORDERED: THI100T PO (14:47)
[2018-02-15] MEDS ORDERED: LEVO500T89 PO (14:47)
[2018-02-15] MEDS ORDERED: NICO-687 TD (14:47)
[2018-02-15] MEDS ORDERED: IPRA3AMP9 NEB (14:47)
[2018-02-15] MEDS ORDERED: BUDE0.5A3 IH (14:47)
[2018-02-15] MEDS ORDERED: FOLI1TAB16 PO (14:47)
== END 2018-02-15 16:00 | DRG 896 ==
LOC: ER 09:06 → ED HOLD 10:03 → SUR 3N 19:28
PROVIDERS: ADMIT Family Medicine; ATTEND Family Medicine
DX: F10.229 Alcohol dependence with intoxication, unspecified (principal); J18.9 Pneumonia, unspecified organism; J44.0 Chronic obstructive pulmonary disease with (acute) lower respiratory infection; E11.9 Type 2 diabetes mellitus without complications; J44.1 Chronic obstructive pulmonary disease with (acute) exacerbation; F03.90 Unspecified dementia, unspecified severity, without behavioral disturbance, psychotic disturbance, mood disturbance, and anxiety; F17.210 Nicotine dependence, cigarettes, uncomplicated; Z90.49 Acquired absence of other specified parts of digestive tract; Z90.710 Acquired absence of both cervix and uterus; Z59.0 Homelessness; Z88.0 Allergy status to penicillin; Z88.2 Allergy status to sulfonamides; Z91.041 Radiographic dye allergy status; Z79.899 Other long term (current) drug therapy
CPT/HCPCS: 36415; 71045; 80053; 80061; 82948; 83036; 83605; 83735; 84484; 85025; 87040; 87070; 92616; 93005; 94640; 94760; 96374; 97116; 97162; 97530; 99285; J1650; J1815; J1956; J2060; J3411; J3480; J3490; J7030; J7060; J7626

== ENCOUNTER 2018-02-15 19:04 | Emergency (ER) | payer MEDICARE, MEDICAID ==
[~2018-02-15] VITALS: Ht 154.9 cm; Wt 50.0 kg
[~2018-02-15 19:04] MED LIST changes: +BUDE0.5A3 IH; +FOLI1TAB16 PO; +IPRA3AMP9 NEB; +LEVO500T89 PO; +MULT-1179 PO; +NICO-687 TD; +NO HOME MEDS; -PRED10TA PO; +THI100T PO; -VIT1TABL76 PO
[2018-02-15 21:25] LABS: BASOPHILS % (AUTO) 0.5 % (0-1); EOSINOPHILS # (AUTO) 0.6 X10'3 (0-0.9); EOSINOPHILS % (AUTO) 5.5 % (0-6); HEMOGLOBIN 13.5 g/dl (12.0-16.0); LYMPHOCYTES # (AUTO) 1.8 X10'3 (1.1-4.8); LYMPHOCYTES % (AUTO) 17.8 % (21-51); MEAN CORPUSCULAR HEMOGLOBIN 31.7 PG (27.0-31.0); MEAN CORPUSCULAR HGB CONC 33.8 % (33.0-36.5); MEAN CORPUSCULAR VOLUME 93.9 FL (78-98); MEAN PLATELET VOLUME 8.1 FL (7.4-10.4); MONOCYTES # (AUTO) 1.1 X10'3 (0-0.9); MONOCYTES % (AUTO) 10.5 % (2-12); NEUTROPHILS # (AUTO) 6.6 X10'3 (1.8-7.7); NEUTROPHILS % (AUTO) 65.7 % (42-75); PLATELET COUNT 244 X10'3 (140-440); RED BLOOD COUNT 4.26 X10'6 (4.20-5.60); RED CELL DISTRIBUTION WIDTH 14.1 % (11.5-14.5); WHITE BLOOD COUNT 10.1 X10'3 (4.5-11.0)
[2018-02-15 21:46] LABS: ALANINE AMINOTRANSFERASE 14 U/L (12-78); ALBUMIN/GLOBULIN RATIO 0.7 (1.1-1.5); ALKALINE PHOSPHATASE 77 IU/L (46-116); ANION GAP 8 (8-16); ASPARTATE AMINO TRANSFERASE 15 U/L (10-37); BILIRUBIN,TOTAL 0.7 MG/DL (0.1-1.0); BLOOD UREA NITROGEN 7 MG/DL (7-18); BUN/CREATININE RATIO 15.9 (6.6-38.0); CALCIUM 9.2 MG/DL (8.5-10.1); CHLORIDE 97 MMOL/L (99-107); CREATINE KINASE 34 U/L (26-192); CREATININE 0.44 MG/DL (0.40-0.90); GLUCOSE 111 MG/DL (70-104); POTASSIUM 3.9 MMOL/L (3.5-5.1); SODIUM 133 MMOL/L (135-145); TOTAL CARBON DIOXIDE 28.2 MMOL/L (24-32); TOTAL PROTEIN 7.1 G/DL (6.4-8.2); eGFR > 90 ML/MIN
[2018-02-15 22:33] VITALS: BP 160/67
== END 2018-02-15 22:39 ==
LOC: ER 19:04
DX: R07.89 Other chest pain (principal); E11.9 Type 2 diabetes mellitus without complications; F03.90 Unspecified dementia, unspecified severity, without behavioral disturbance, psychotic disturbance, mood disturbance, and anxiety; J44.9 Chronic obstructive pulmonary disease, unspecified; F17.200 Nicotine dependence, unspecified, uncomplicated; Z59.0 Homelessness; Z88.0 Allergy status to penicillin; Z88.2 Allergy status to sulfonamides; Z90.710 Acquired absence of both cervix and uterus; Z79.899 Other long term (current) drug therapy
CPT/HCPCS: 36415; 71045; 80053; 82550; 84484; 85025; 93005; 99285

== ENCOUNTER 2018-03-25 14:08 | Emergency (ER) | payer MEDICARE, MEDICAID ==
[~2018-03-25] VITALS: Ht 152.4 cm; Wt 49.5 kg
[~2018-03-25 14:08] MED LIST changes: -LEVO500T89 PO; -NO HOME MEDS
[2018-03-25 16:30] VITALS: BP 120/72
== END 2018-03-25 16:36 | disposition home or self-care (01) ==
LOC: ER 14:08
DX: M54.2 Cervicalgia (principal); R51 Headache; F10.10 Alcohol abuse, uncomplicated; J44.9 Chronic obstructive pulmonary disease, unspecified; E11.9 Type 2 diabetes mellitus without complications; I49.9 Cardiac arrhythmia, unspecified; Z90.710 Acquired absence of both cervix and uterus; Z90.49 Acquired absence of other specified parts of digestive tract; Z60.2 Problems related to living alone; Z59.0 Homelessness; Z88.0 Allergy status to penicillin; Z88.2 Allergy status to sulfonamides; Z88.8 Allergy status to other drugs, medicaments and biological substances; Z79.899 Other long term (current) drug therapy; W18.39XA Other fall on same level, initial encounter; Y93.89 Activity, other specified; Y92.89 Other specified places as the place of occurrence of the external cause; Y99.8 Other external cause status
CPT/HCPCS: 70450; 72125; 99284

== ENCOUNTER 2018-03-28 15:53 | Emergency (ER) | payer MEDICARE, MEDICAID ==
[~2018-03-28] VITALS: Ht 152.4 cm; Wt 54.0 kg
[2018-03-28 17:32] VITALS: BP 142/84
== END 2018-03-28 18:59 | disposition home or self-care (01) ==
LOC: ER 15:54
DX: F10.27 Alcohol dependence with alcohol-induced persisting dementia (principal); R07.9 Chest pain, unspecified; E11.9 Type 2 diabetes mellitus without complications; J44.9 Chronic obstructive pulmonary disease, unspecified; Y90.9 Presence of alcohol in blood, level not specified; Z90.49 Acquired absence of other specified parts of digestive tract; Z90.89 Acquired absence of other organs; Z90.710 Acquired absence of both cervix and uterus; Z59.0 Homelessness; Z88.0 Allergy status to penicillin; Z88.2 Allergy status to sulfonamides; Z91.041 Radiographic dye allergy status; Z79.899 Other long term (current) drug therapy
CPT/HCPCS: 36415; 84484; 93005; 99285

== ENCOUNTER 2018-07-01 13:10 | Inpatient (IN) | payer MEDICARE, MEDICAID ==
[~2018-07-01] VITALS: Ht 152.4 cm; Wt 48.2 kg
[2018-07-01] MEDS ORDERED: ipratropium/albuterol 3ml nebule NEB ONE (13:25)
[2018-07-01] MEDS ORDERED: methylPREDNISolone sod succ 125mg/2ml vial IV ONE (13:25)
[2018-07-01 14:07] LABS: BASOPHILS # (AUTO) 0.1 X10'3 (0-0.2); BASOPHILS % (AUTO) 0.7 % (0-1); EOSINOPHILS # (AUTO) 0.2 X10'3 (0-0.9); HEMATOCRIT 39.8 % (35.0-45.0); HEMOGLOBIN 13.2 g/dl (12.0-16.0); LYMPHOCYTES # (AUTO) 1.8 X10'3 (1.1-4.8); LYMPHOCYTES % (AUTO) 20.3 % (21-51); MEAN CORPUSCULAR HEMOGLOBIN 27.7 PG (27.0-31.0); MEAN CORPUSCULAR HGB CONC 33.1 % (33.0-36.5); MEAN CORPUSCULAR VOLUME 83.6 FL (78-98); MEAN PLATELET VOLUME 8.2 FL (7.4-10.4); MONOCYTES # (AUTO) 0.9 X10'3 (0-0.9); MONOCYTES % (AUTO) 9.6 % (2-12); NEUTROPHILS # (AUTO) 5.9 X10'3 (1.8-7.7); NEUTROPHILS % (AUTO) 67.4 % (42-75); PLATELET COUNT 222 X10'3 (140-440); RED BLOOD COUNT 4.77 X10'6 (4.20-5.60); RED CELL DISTRIBUTION WIDTH 15.5 % (11.5-14.5); WHITE BLOOD COUNT 8.8 X10'3 (4.5-11.0)
[2018-07-01 14:17] LABS: INR 1.1 INR; PARTIAL THROMBOPLASTIN TIME 29 SECONDS (22-32); PROTHROMBIN TIME 11.4 SECONDS (9.0-12.0)
[2018-07-01 14:22] LABS: ALANINE AMINOTRANSFERASE 15 U/L (12-78); ALBUMIN 3.1 G/DL (3.4-5.0); ALBUMIN/GLOBULIN RATIO 0.8 (1.1-1.5); ALKALINE PHOSPHATASE 92 IU/L (46-116); ANION GAP 2 (8-16); ASPARTATE AMINO TRANSFERASE 24 U/L (10-37); BILIRUBIN,TOTAL 0.5 MG/DL (0.1-1.0); BLOOD UREA NITROGEN 5 MG/DL (7-18); BUN/CREATININE RATIO 8.3 (6.6-38.0); CALCIUM 8.7 MG/DL (8.5-10.1); CHLORIDE 99 MMOL/L (99-107); GLUCOSE 117 MG/DL (70-104); POTASSIUM 3.1 MMOL/L (3.5-5.1); SODIUM 136 MMOL/L (135-145); eGFR > 90 ML/MIN
[2018-07-01] MEDS ORDERED: potassium Cl 10 mEq/100mL bag IV ONE (14:25)
[2018-07-01 14:30] LABS: MAGNESIUM 1.8 MG/DL (1.5-2.4); PHOSPHORUS 3.8 MG/DL (2.3-4.5)
[2018-07-01] MEDS ORDERED: potassium 10mEq/100ml NS w/LIDOcaine (10mg/bag) IV ONE (14:35)
[2018-07-01 15:41] LABS: CLARITY,URINE CLEAR (Clear); GLUCOSE, URINE NEGATIVE (Neg); KETONES,URINE NEGATIVE (Neg); LEUKOCYTE ESTERASE ,URINE TRACE (Neg); NITRITES, URINE NEGATIVE (Neg); OCCULT BLOOD,URINE TRACE-LYSED (Neg); PROTEIN,URINE NEGATIVE (Neg); UROBILINOGEN,URINE 0.2 E.U/dL (0.2-1.0)
[2018-07-01 15:51] LABS: COLOR,URINE YELLOW (Yellow); UA COLLECTION TYPE CLN CATCH MIDSTREAM
[2018-07-01 15:55] LABS: URINE AMPHETAMINE SCREEN NEGATIVE (Neg); URINE BARBITUATE SCREEN NEGATIVE (Neg); URINE BENZODIAZEPINES SCREEN NEGATIVE (Neg); URINE CANNABINOID SCREEN NEGATIVE (Neg); URINE COCAINE SCREEN NEGATIVE (Neg); URINE METHADONE SCREEN NEGATIVE (Neg); URINE OPIATE SCREEN NEGATIVE (Neg); URINE PHENCYCLIDINE SCREEN NEGATIVE (Neg)
[2018-07-01 16:04] LABS: MUCUS STRANDS NONE SEEN /LPF (Neg); SQUAMOUS EPITHELIAL CELL,UR FEW /LPF (FEW)
[2018-07-01 16:05] LABS: BACTERIA,URINE FEW /HPF (Neg); RBC,URINE 0-2 /HPF (0-2); WBC,URINE 0-4 /HPF (0-4)
[2018-07-01] MEDS ORDERED: IPRA3AMP9 IH (17:05)
[2018-07-01] MEDS ORDERED: BUDE0.5A11 IH (17:05)
[2018-07-01] MEDS ORDERED: BUDESONIDE 0.25 MG/2 ML AMPUL.NEB IH PRN (17:10)
[2018-07-01] MEDS ORDERED: atropine 0.1mg/ml 10ml syringe IV PRN (17:55)
[2018-07-01] MEDS ORDERED: normal saline 1000ml 1,000 ML IV SCH (17:57)
[2018-07-01] MEDS ORDERED: ondansetron/PF 4mg/2ml inj IV PRN (18:00)
[2018-07-01] MEDS ORDERED: acetaminophen 325mg tablet PO PRN (18:00)
[2018-07-01] MEDS ORDERED: mag hydrox/Alum hydrox/simeth 30ml oral suspension PO PRN (18:00)
[2018-07-01] MEDS ORDERED: ipratropium/albuterol 3ml nebule NEB PRN (18:00)
[2018-07-01] MEDS ORDERED: magnesium hydroxide 30ml (MOM) UD suspension PO PRN (18:00)
[2018-07-01] MEDS ORDERED: insulin Lispro (HumaLOG) vial - multi-dose SQ SCH (19:40)
[2018-07-01] MEDS ORDERED: MESSAGE TO PHARMACY PO ONE (19:40)
[2018-07-01] MEDS ORDERED: dextrose 50%-water 50ml dispensing syringe IV PRN ×2 (19:40)
[2018-07-01] MEDS ORDERED: glucagon, human recombinant 1mg kit SUBCUT PRN (19:40)
[2018-07-01] MEDS ORDERED: dextrose ORAL solution 15 GM/59 ML bottle PO PRN ×2 (19:40)
[2018-07-01] MEDS ORDERED: methylPREDNISolone sod succ/PF 40mg inj. IV SCH (20:00)
[2018-07-01 20:19] LABS: HEMOGLOBIN A1C 6.9 % (4.5-6.2)
[2018-07-01] MEDS ORDERED: insulin glargine (Lantus) pen - multi-dose SQ SCH (21:00)
[2018-07-01 23:00] VITALS: BP 140/90
[2018-07-02] MEDS ORDERED: heparin, porcine 5000 units/ml vial SQ SCH
[2018-07-02 02:47] VITALS: BP 142/80
[2018-07-02 04:49] LABS: BASOPHILS % (AUTO) 0 % (0-1); EOSINOPHILS # (AUTO) 0.1 X10'3 (0-0.9); EOSINOPHILS % (AUTO) 1.2 % (0-6); HEMATOCRIT 39.2 % (35.0-45.0); LYMPHOCYTES # (AUTO) 0.6 X10'3 (1.1-4.8); LYMPHOCYTES % (AUTO) 13.8 % (21-51); MEAN CORPUSCULAR HEMOGLOBIN 27.7 PG (27.0-31.0); MEAN CORPUSCULAR HGB CONC 33.2 % (33.0-36.5); MEAN CORPUSCULAR VOLUME 83.5 FL (78-98); MEAN PLATELET VOLUME 8.9 FL (7.4-10.4); NEUTROPHILS # (AUTO) 3.7 X10'3 (1.8-7.7); PLATELET COUNT 188 X10'3 (140-440); RED CELL DISTRIBUTION WIDTH 15.1 % (11.5-14.5); WHITE BLOOD COUNT 4.4 X10'3 (4.5-11.0)
[2018-07-02 05:07] LABS: ALANINE AMINOTRANSFERASE 19 U/L (12-78); ALBUMIN 2.9 G/DL (3.4-5.0); ALBUMIN/GLOBULIN RATIO 0.8 (1.1-1.5); ALKALINE PHOSPHATASE 85 IU/L (46-116); ANION GAP 7 (8-16); ASPARTATE AMINO TRANSFERASE 18 U/L (10-37); BILIRUBIN,TOTAL 0.7 MG/DL (0.1-1.0); BLOOD UREA NITROGEN 8 MG/DL (7-18); BUN/CREATININE RATIO 9.6 (6.6-38.0); CALCIUM 8.6 MG/DL (8.5-10.1); CHLORIDE 101 MMOL/L (99-107); CHOL/HDL RATIO 3.1 (0.00-4.99); CHOLESTEROL 132 MG/DL (0-200); CREATININE 0.83 MG/DL (0.40-0.90); GLUCOSE 227 MG/DL (70-104); HDL CHOLESTEROL 42 MG/DL (35-60); POTASSIUM 3.9 MMOL/L (3.5-5.1); SODIUM 136 MMOL/L (135-145); TOTAL CARBON DIOXIDE 28.3 MMOL/L (24-32); TOTAL PROTEIN 6.5 G/DL (6.4-8.2); TRIGLYCERIDES 51 MG/DL (20-135); eGFR 66 ML/MIN
[2018-07-02] MEDS ORDERED: clindamycin 600mg/D5W 50ml 50 ML IV ONE (06:32)
[2018-07-02] MEDS ORDERED: clindamycin phosphate 150mg/ml inj. ONE (06:32)
[2018-07-02] MEDS ORDERED: lidocaine 1%/epinephrine 1:100,000 injection 50ml vial ONE (06:32)
[2018-07-02 13:54] LABS: LDL CHOLESTEROL 80 MG/DL (50-100)
== END 2018-07-02 08:11 | disposition left against medical advice (07) | DRG 191 ==
LOC: ER 13:10 → ED HOLD 17:57 → CMPBEDREQ 22:43 → PCU 3S 23:37
PROVIDERS: ADMIT Family Medicine; ATTEND Family Medicine
DX: J44.1 Chronic obstructive pulmonary disease with (acute) exacerbation (principal); I44.2 Atrioventricular block, complete; I45.89 Other specified conduction disorders; R00.1 Bradycardia, unspecified; E11.9 Type 2 diabetes mellitus without complications; E78.5 Hyperlipidemia, unspecified; E87.6 Hypokalemia; F03.90 Unspecified dementia, unspecified severity, without behavioral disturbance, psychotic disturbance, mood disturbance, and anxiety; Z53.21 Procedure and treatment not carried out due to patient leaving prior to being seen by health care provider; I48.91 Unspecified atrial fibrillation; Z60.2 Problems related to living alone; F10.10 Alcohol abuse, uncomplicated; F17.210 Nicotine dependence, cigarettes, uncomplicated; I11.0 Hypertensive heart disease with heart failure; I50.9 Heart failure, unspecified; Z90.49 Acquired absence of other specified parts of digestive tract; Z90.710 Acquired absence of both cervix and uterus; Z88.0 Allergy status to penicillin; Z88.2 Allergy status to sulfonamides; Z91.041 Radiographic dye allergy status; Z79.899 Other long term (current) drug therapy; Z87.01 Personal history of pneumonia (recurrent); Z80.9 Family history of malignant neoplasm, unspecified; Z71.41 Alcohol abuse counseling and surveillance of alcoholic; Z71.6 Tobacco abuse counseling
CPT/HCPCS: 36415; 71045; 80053; 80061; 80305; 80320; 81001; 83036; 83605; 83735; 83880; 84100; 84484; 85025; 85610; 85730; 87040; 87070; 87088; 94640; 94760; 96374; 96375; 99285; C1894; J0461; J1815; J2920; J2930; J3480; J3490; J7030

== ENCOUNTER 2018-07-05 11:24 | Inpatient (IN) | payer MEDICARE, MEDICAID ==
[~2018-07-05] VITALS: Ht 152.4 cm; Wt 55.1 kg
[~2018-07-05 11:24] MED LIST changes: +BUDE0.5A11 IH; -BUDE0.5A3 IH; -FOLI1TAB16 PO; +IPRA3AMP9 IH; -IPRA3AMP9 NEB; -MULT-1179 PO; -NICO-687 TD; -THI100T PO
[2018-07-05 11:45] LABS: BASOPHILS % (AUTO) 0.6 % (0-1); EOSINOPHILS # (AUTO) 0.1 X10'3 (0-0.9); EOSINOPHILS % (AUTO) 1.1 % (0-6); HEMATOCRIT 43.6 % (35.0-45.0); HEMOGLOBIN 14.4 g/dl (12.0-16.0); LYMPHOCYTES # (AUTO) 1.3 X10'3 (1.1-4.8); LYMPHOCYTES % (AUTO) 15.5 % (21-51); MEAN CORPUSCULAR HEMOGLOBIN 27.8 PG (27.0-31.0); MEAN CORPUSCULAR VOLUME 84.4 FL (78-98); MEAN PLATELET VOLUME 8.8 FL (7.4-10.4); MONOCYTES # (AUTO) 0.6 X10'3 (0-0.9); MONOCYTES % (AUTO) 7.2 % (2-12); NEUTROPHILS # (AUTO) 6.2 X10'3 (1.8-7.7); NEUTROPHILS % (AUTO) 75.6 % (42-75); PLATELET COUNT 223 X10'3 (140-440); RED BLOOD COUNT 5.17 X10'6 (4.20-5.60); RED CELL DISTRIBUTION WIDTH 14.4 % (11.5-14.5); WHITE BLOOD COUNT 8.2 X10'3 (4.5-11.0)
[2018-07-05 11:54] LABS: INR 1.2 INR; PROTHROMBIN TIME 11.9 SECONDS (9.0-12.0)
[2018-07-05 12:00] LABS: ALANINE AMINOTRANSFERASE 15 U/L (12-78); ALBUMIN 3.4 G/DL (3.4-5.0); ALBUMIN/GLOBULIN RATIO 0.9 (1.1-1.5); ALKALINE PHOSPHATASE 94 IU/L (46-116); ANION GAP 5 (8-16); ASPARTATE AMINO TRANSFERASE 20 U/L (10-37); BILIRUBIN,TOTAL 1.1 MG/DL (0.1-1.0); BLOOD UREA NITROGEN 6 MG/DL (7-18); BUN/CREATININE RATIO 9.4 (6.6-38.0); CALCIUM 8.5 MG/DL (8.5-10.1); CHLORIDE 99 MMOL/L (99-107); CREATININE 0.64 MG/DL (0.40-0.90); GLUCOSE 146 MG/DL (70-104); POTASSIUM 3.3 MMOL/L (3.5-5.1); SODIUM 138 MMOL/L (135-145); TOTAL CARBON DIOXIDE 34.1 MMOL/L (24-32); TOTAL PROTEIN 7.3 G/DL (6.4-8.2); eGFR 89 ML/MIN
[2018-07-05] MEDS ORDERED: potassium Cl 20 mEq SR tablet PO STA (12:07)
[2018-07-05 12:09] LABS: MAGNESIUM 1.6 MG/DL (1.5-2.4)
[2018-07-05] MEDS ORDERED: PANT20TA3 PO (12:36)
[2018-07-05] MEDS ORDERED: ALBU18HF2 INH (12:37)
[2018-07-05] MEDS ORDERED: TIOT4MIS5 IH (12:37)
[2018-07-05] MEDS: magnesium 1gm/100ml D5W IVPB 100 ML IV SCH ×2 (12:46→15:31)
[2018-07-05] MEDS ORDERED: non-formulary drug (Albuterol Sulfate (Ventolin Hfa) 2 PUFFS) INH SCH (13:05)
[2018-07-05] MEDS ORDERED: normal saline 1000ml 1,000 ML IV SCH (13:06)
[2018-07-05] MEDS ORDERED: magnesium 4gm in 100ml NS 100 ML IV PRN (13:10)
[2018-07-05] MEDS ORDERED: acetaminophen 325mg tablet PO PRN ×2 (13:10)
[2018-07-05] MEDS ORDERED: potassium Cl 20 mEq SR tablet PO PRN (13:10)
[2018-07-05] MEDS ORDERED: ondansetron/PF 4mg/2ml inj IV PRN (13:10)
[2018-07-05] MEDS ORDERED: magnesium Cl slow-release 64mg tablet PO PRN (13:10)
[2018-07-05] MEDS ORDERED: magnesium 1gm/100ml D5W IVPB 100 ML IV PRN (13:10)
[2018-07-05] MEDS ORDERED: potassium Cl 40MEQ/NS 500ml 500 ML IV PRN ×2 (13:10)
[2018-07-05] MEDS ORDERED: docusate sod 100mg capsule PO PRN (13:10)
[2018-07-05 14:55] VITALS: BP 204/185
[2018-07-05 15:00] VITALS: BP 197/61
[2018-07-05] MEDS ORDERED: hyDRALAzine 10mg tablet PO ONE (15:15)
[2018-07-05] MEDS: potassium Cl 20 mEq SR tablet PO PRN (15:31)
[2018-07-05 16:35] VITALS: BP 171/57
[2018-07-05 18:00] VITALS: BP 165/54
[2018-07-05] MEDS: hydrALAZINE 20mg/ml inj. IV SCH (19:35)
[2018-07-05] MEDS: heparin, porcine 5000 units/ml vial SQ SCH (20:00)
[2018-07-05] MEDS ORDERED: hyDRALAzine 10mg tablet PO SCH (20:00)
[2018-07-05] MEDS ORDERED: temazepam 15mg capsule PO PRN (21:00)
[2018-07-05] MEDS: ipratropium 0.5 MG/2.5ML nebule IH SCH (21:41)
[2018-07-05 22:00] VITALS: BP 163/59
[2018-07-06] VITALS (7 sets, daily range): BP systolic 148–191; BP diastolic 43–74
[2018-07-06] MEDS: hydrALAZINE 20mg/ml inj. IV SCH ×4 (01:42→21:04)
[2018-07-06] MEDS: potassium Cl 20 mEq SR tablet PO PRN (01:42)
[2018-07-06] MEDS: ipratropium 0.5 MG/2.5ML nebule IH SCH ×4 (02:51→20:30)
[2018-07-06 06:25] LABS: BASOPHILS % (AUTO) 0.5 % (0-1); EOSINOPHILS # (AUTO) 0.2 X10'3 (0-0.9); EOSINOPHILS % (AUTO) 2.2 % (0-6); HEMOGLOBIN 13.1 g/dl (12.0-16.0); LYMPHOCYTES # (AUTO) 1.9 X10'3 (1.1-4.8); LYMPHOCYTES % (AUTO) 19.5 % (21-51); MEAN CORPUSCULAR HEMOGLOBIN 27.8 PG (27.0-31.0); MEAN CORPUSCULAR HGB CONC 33.6 % (33.0-36.5); MEAN CORPUSCULAR VOLUME 82.7 FL (78-98); MEAN PLATELET VOLUME 8.9 FL (7.4-10.4); MONOCYTES # (AUTO) 0.7 X10'3 (0-0.9); MONOCYTES % (AUTO) 7.6 % (2-12); NEUTROPHILS # (AUTO) 6.9 X10'3 (1.8-7.7); NEUTROPHILS % (AUTO) 70.2 % (42-75); PLATELET COUNT 193 X10'3 (140-440); RED BLOOD COUNT 4.71 X10'6 (4.20-5.60); RED CELL DISTRIBUTION WIDTH 15.9 % (11.5-14.5); WHITE BLOOD COUNT 9.8 X10'3 (4.5-11.0)
[2018-07-06 06:29] LABS: INR 1.2 INR
[2018-07-06 06:36] LABS: ALBUMIN 2.9 G/DL (3.4-5.0); ANION GAP 7 (8-16); BLOOD UREA NITROGEN 8 MG/DL (7-18); BUN/CREATININE RATIO 13.3 (6.6-38.0); CALCIUM 8.3 MG/DL (8.5-10.1); CHLORIDE 101 MMOL/L (99-107); GLUCOSE 144 MG/DL (70-104); MAGNESIUM 2.1 MG/DL (1.5-2.4); POTASSIUM 4.5 MMOL/L (3.5-5.1); SODIUM 136 MMOL/L (135-145); TOTAL CARBON DIOXIDE 28.1 MMOL/L (24-32); eGFR > 90 ML/MIN
[2018-07-06] MEDS: albuterol 2.5 MG/3 ML nebule NEB PRN (07:29)
[2018-07-06] MEDS: K and/or MAG REPLACEMENT MC SCH (08:00)
[2018-07-06] MEDS ORDERED: TIOTROPIUM BROMIDE 2.5 MCG IH SCH (08:00)
[2018-07-06] MEDS ORDERED: non-formulary drug (Pantoprazole Sodium (Protonix) 1 TAB) PO SCH (08:00)
[2018-07-06] MEDS: nicotine 14mg patch - 24hr TD SCH (08:35)
[2018-07-06] MEDS ORDERED: thiamine inj. 100 MG in normal saline 100ml IV soln 100 ML IV ONE (08:35)
[2018-07-06] MEDS: pantoprazole 40mg Tablet.DR PO SCH (08:56)
[2018-07-06] MEDS: heparin, porcine 5000 units/ml vial SQ SCH ×2 (08:56→20:00)
[2018-07-06] MEDS: LORazepam 2 mg/ml vial IV PRN ×2 (08:58→14:25)
[2018-07-06] MEDS: folic acid inj. 2 MG, thiamine inj. 100 MG, MVI, adult No.4 with vit. K 10 ML in dextro... IV SCH ×4 (11:42)
[2018-07-06] MEDS ORDERED: MESSAGE TO PHARMACY PO ONE (20:40)
[2018-07-06] MEDS ORDERED: dextrose ORAL solution 15 GM/59 ML bottle PO PRN ×2 (20:40)
[2018-07-06] MEDS ORDERED: dextrose 50%-water 50ml dispensing syringe IV PRN ×2 (20:40)
[2018-07-06] MEDS ORDERED: glucagon, human recombinant 1mg kit SUBCUT PRN (20:40)
[2018-07-06] MEDS ORDERED: LORazepam 2 mg/ml vial IV PRN (20:55)
[2018-07-06] MEDS: insulin glargine (Lantus) pen - multi-dose SQ SCH (21:00)
[2018-07-07] VITALS (22 sets, daily range): BP systolic 137–204; BP diastolic 45–102
[2018-07-07 00:16] LABS: ABG HCO3 24.9 mmol/L (22.0-26.0); ABG OXYGEN SATURATION 92.8 % (95-98); ABG PCO2 (T) 33.4 mmHg (32.0-45.0); ABG PO2 (T) 63.1 mmHg (83-108); FCOHb 0.9 % (0.5-1.5); FLOW 2 L/min; FMetHb 0.2 % (0.3-1.12); FO2Hb 91.8 % (94-100); PATIENT TEMPERATURE 36.7; RESPIRATORY RATE (OBSERVED) 20 b/min; TOTAL HEMOGLOBIN 13.9 G/dl (12.0-16.0)
[2018-07-07] MEDS: hydrALAZINE 20mg/ml inj. IV PRN ×3 (00:23→22:22)
[2018-07-07] MEDS: atropine 1 MG/1 ML vial IM PRN ×2 (00:59→01:27)
[2018-07-07] MEDS: hydrALAZINE 20mg/ml inj. IV SCH ×4 (02:00→19:00)
[2018-07-07] MEDS: ipratropium 0.5 MG/2.5ML nebule IH SCH ×4 (02:57→20:59)
[2018-07-07] MEDS: pantoprazole 40mg Tablet.DR PO SCH (06:54)
[2018-07-07] MEDS: thiamine 100mg tablet PO SCH (06:56)
[2018-07-07] MEDS: multivitamins, therapeutics tablet PO SCH (06:56)
[2018-07-07] MEDS: folic acid 1mg tablet PO SCH (06:56)
[2018-07-07] MEDS: heparin, porcine 5000 units/ml vial SQ SCH ×2 (06:57→20:00)
[2018-07-07] MEDS: nicotine 14mg patch - 24hr TD SCH (07:30)
[2018-07-07 07:56] LABS: BASOPHILS % (AUTO) 0.2 % (0-1); EOSINOPHILS # (AUTO) 0.2 X10'3 (0-0.9); EOSINOPHILS % (AUTO) 1.2 % (0-6); HEMATOCRIT 39.1 % (35.0-45.0); HEMOGLOBIN 13.2 g/dl (12.0-16.0); LYMPHOCYTES # (AUTO) 1.1 X10'3 (1.1-4.8); LYMPHOCYTES % (AUTO) 9.4 % (21-51); MEAN CORPUSCULAR HEMOGLOBIN 27.9 PG (27.0-31.0); MEAN CORPUSCULAR HGB CONC 33.7 % (33.0-36.5); MEAN CORPUSCULAR VOLUME 82.8 FL (78-98); MEAN PLATELET VOLUME 8.9 FL (7.4-10.4); MONOCYTES # (AUTO) 0.7 X10'3 (0-0.9); MONOCYTES % (AUTO) 6.1 % (2-12); NEUTROPHILS # (AUTO) 10.1 X10'3 (1.8-7.7); NEUTROPHILS % (AUTO) 83.1 % (42-75); PLATELET COUNT 195 X10'3 (140-440); RED BLOOD COUNT 4.72 X10'6 (4.20-5.60); RED CELL DISTRIBUTION WIDTH 15.8 % (11.5-14.5); WHITE BLOOD COUNT 12.1 X10'3 (4.5-11.0)
[2018-07-07] MEDS: folic acid inj. 2 MG, thiamine inj. 100 MG, MVI, adult No.4 with vit. K 10 ML in dextro... IV SCH ×4 (08:00)
[2018-07-07 08:05] LABS: INR 1.1 INR; PROTHROMBIN TIME 11.7 SECONDS (9.0-12.0)
[2018-07-07 08:08] LABS: ALBUMIN 2.9 G/DL (3.4-5.0); AMYLASE 21 U/L (25-115); ANION GAP 7 (8-16); BLOOD UREA NITROGEN 10 MG/DL (7-18); BUN/CREATININE RATIO 15.9 (6.6-38.0); CALCIUM 8.2 MG/DL (8.5-10.1); CHLORIDE 99 MMOL/L (99-107); CREATININE 0.63 MG/DL (0.40-0.90); GLUCOSE 134 MG/DL (70-104); LIPASE 82 U/L (73-393); MAGNESIUM 1.8 MG/DL (1.5-2.4); PHOSPHORUS 3.4 MG/DL (2.3-4.5); POTASSIUM 4.5 MMOL/L (3.5-5.1); SODIUM 132 MMOL/L (135-145); TOTAL CARBON DIOXIDE 26.3 MMOL/L (24-32); eGFR 90 ML/MIN
[2018-07-07] MEDS: K and/or MAG REPLACEMENT MC SCH (08:19)
[2018-07-07] MEDS: enalaprilat dihydrate 2.5mg/2ml vial IV PRN (09:28)
[2018-07-07] MEDS ORDERED: vancomycin/NS 1 GM ADD-VANTAGE 250 ML IV ONE (14:00)
[2018-07-07] MEDS ORDERED: LIDOcaine 1% 30ml preserv. free vial ONE (15:33)
[2018-07-07] MEDS ORDERED: MIDAZolam 5mg/5ml vial ONE (16:43)
[2018-07-07] MEDS ORDERED: fentaNYL/PF 50MCG/1 ML 2ML syringe ONE (16:43)
[2018-07-07] MEDS ORDERED: ringers solution, lacted 1,000 ML IV SCH (17:08)
[2018-07-07] MEDS ORDERED: proCHLORperazine 10 MG/2 ml inj IV PRN (17:10)
[2018-07-07] MEDS ORDERED: ondansetron/PF 4mg/2ml inj IV PRN (17:10)
[2018-07-07] MEDS ORDERED: morphine 4 MG/ML inj SYRINge IV PRN ×2 (17:10)
[2018-07-07] MEDS ORDERED: meperidine/PF 25mg/ml syringe IV PRN ×3 (17:10)
[2018-07-07] MEDS ORDERED: HYDROcodone/acetaminophen 5mg/325mg tablet PO PRN (18:10)
[2018-07-07] MEDS: insulin glargine (Lantus) pen - multi-dose SQ SCH (21:00)
[2018-07-07] MEDS: albuterol 2.5 MG/3 ML nebule NEB PRN (23:52)
[2018-07-08] VITALS (8 sets, daily range): BP systolic 103–193; BP diastolic 47–117
[2018-07-08] MEDS: enalaprilat dihydrate 2.5mg/2ml vial IV PRN (00:16)
[2018-07-08] MEDS ORDERED: morphine 2 MG/ML inj. syringe IV PRN (00:25)
[2018-07-08] MEDS ORDERED: normal saline 1000ml 1,000 ML IV SCH (00:25)
[2018-07-08 00:26] LABS: ABG BASE EXCESS -3.1 mmol/L (-2.0-3.0); ABG HCO3 20.6 mmol/L (22.0-26.0); ABG OXYGEN SATURATION 99.1 % (95-98); ABG PCO2 (T) 33.7 mmHg (32.0-45.0); ABG PH (T) 7.406 (7.350-7.450); ABG PO2 (T) 151.9 mmHg (83-108); FCOHb 1.1 % (0.5-1.5); FLOW 11 L/min; FMetHb 0.3 % (0.3-1.12); FO2Hb 97.7 % (94-100); PATIENT TEMPERATURE 37.2; RESPIRATORY RATE (OBSERVED) 30 b/min
[2018-07-08] MEDS: LORazepam 2 mg/ml vial IV PRN ×2 (00:31→21:56)
[2018-07-08] MEDS ORDERED: furosemide 40mg/4ml inj IV ONE (02:35)
[2018-07-08] MEDS: hydrALAZINE 20mg/ml inj. IV SCH ×2 (02:56→07:31)
[2018-07-08] MEDS: ipratropium 0.5 MG/2.5ML nebule IH SCH ×4 (03:21→20:10)
[2018-07-08] MEDS: vancomycin/NS 1 GM ADD-VANTAGE 250 ML IV SCH ×2 (04:17→08:46)
[2018-07-08 06:00] LABS: INR 1.1 INR; PROTHROMBIN TIME 11.7 SECONDS (9.0-12.0)
[2018-07-08 06:02] LABS: BASOPHILS % (AUTO) 0.2 % (0-1); EOSINOPHILS % (AUTO) 0.1 % (0-6); HEMATOCRIT 40.8 % (35.0-45.0); HEMOGLOBIN 13.7 g/dl (12.0-16.0); LYMPHOCYTES # (AUTO) 0.9 X10'3 (1.1-4.8); LYMPHOCYTES % (AUTO) 5.6 % (21-51); MEAN CORPUSCULAR HEMOGLOBIN 28.1 PG (27.0-31.0); MEAN CORPUSCULAR HGB CONC 33.7 % (33.0-36.5); MEAN CORPUSCULAR VOLUME 83.3 FL (78-98); MEAN PLATELET VOLUME 9.4 FL (7.4-10.4); MONOCYTES # (AUTO) 0.8 X10'3 (0-0.9); MONOCYTES % (AUTO) 5.2 % (2-12); NEUTROPHILS % (AUTO) 88.9 % (42-75); PLATELET COUNT 186 X10'3 (140-440); RED CELL DISTRIBUTION WIDTH 16.2 % (11.5-14.5); WHITE BLOOD COUNT 15.8 X10'3 (4.5-11.0)
[2018-07-08 06:07] LABS: CLARITY,URINE CLEAR (Clear); GLUCOSE, URINE NEGATIVE (Neg); KETONES,URINE NEGATIVE (Neg); LEUKOCYTE ESTERASE ,URINE NEGATIVE (Neg); NITRITES, URINE NEGATIVE (Neg); OCCULT BLOOD,URINE SMALL (Neg); PROTEIN,URINE NEGATIVE (Neg); UROBILINOGEN,URINE 0.2 E.U/dL (0.2-1.0)
[2018-07-08 06:09] LABS: COLOR,URINE COLORLESS (Yellow); UA COLLECTION TYPE STRAIGHT CATH
[2018-07-08 06:18] LABS: ALBUMIN 2.9 G/DL (3.4-5.0); AMYLASE 24 U/L (25-115); ANION GAP 8 (8-16); BLOOD UREA NITROGEN 8 MG/DL (7-18); BUN/CREATININE RATIO 14.5 (6.6-38.0); CALCIUM 8.2 MG/DL (8.5-10.1); CHLORIDE 97 MMOL/L (99-107); CREATININE 0.55 MG/DL (0.40-0.90); GLUCOSE 112 MG/DL (70-104); LIPASE 81 U/L (73-393); MAGNESIUM 1.7 MG/DL (1.5-2.4); PHOSPHORUS 3.9 MG/DL (2.3-4.5); POTASSIUM 3.3 MMOL/L (3.5-5.1); SODIUM 133 MMOL/L (135-145); TOTAL CARBON DIOXIDE 28.4 MMOL/L (24-32); TROPONIN I 0.44 NG/ML (0.0-0.05); eGFR > 90 ML/MIN
[2018-07-08 06:52] LABS: WBC,URINE 0-4 /HPF (0-4)
[2018-07-08 06:53] LABS: BACTERIA,URINE NONE SEEN /HPF (Neg); MUCUS STRANDS NONE SEEN /LPF (Neg); SQUAMOUS EPITHELIAL CELL,UR NONE SEEN /LPF (FEW)
[2018-07-08] MEDS: levoFLOXACIN-Levaquin 500mg/D5 100 ML IV SCH (07:30)
[2018-07-08] MEDS: pantoprazole 40mg Tablet.DR PO SCH (07:30)
[2018-07-08] MEDS: nicotine 14mg patch - 24hr TD SCH (07:31)
[2018-07-08] MEDS: multivitamins, therapeutics tablet PO SCH (07:36)
[2018-07-08] MEDS: folic acid 1mg tablet PO SCH (07:36)
[2018-07-08] MEDS: heparin, porcine 5000 units/ml vial SQ SCH ×2 (07:37→20:32)
[2018-07-08] MEDS: thiamine 100mg tablet PO SCH (07:37)
[2018-07-08] MEDS ORDERED: methylPREDNISolone sod succ 125mg/2ml vial IV SCH (08:00)
[2018-07-08] MEDS: K and/or MAG REPLACEMENT MC SCH (08:00)
[2018-07-08] MEDS ORDERED: LORazepam 1 MG tablet PO PRN (08:35)
[2018-07-08] MEDS ORDERED: LORazepam 2 mg/ml vial IV PRN (08:35)
[2018-07-08] MEDS ORDERED: LORazepam 0.5 MG tablet PO PRN (08:35)
[2018-07-08] MEDS: potassium Cl 20 mEq SR tablet PO SCH ×2 (08:55→16:59)
[2018-07-08] MEDS: furosemide 20 MG/2 ML vial IV SCH ×2 (09:36→20:31)
[2018-07-08] MEDS ORDERED: aspirin 81mg tablet.DR PO SCH (10:35)
[2018-07-08] MEDS ORDERED: nitroGLYCERIN 0.4mg SUBLingual tab SL PRN (10:35)
[2018-07-08] MEDS: metroNIDAZOLE-Flagyl 500mg/NS 100 ML IV SCH ×2 (12:10→16:56)
[2018-07-08] MEDS: methylPREDNISolone sod succ 125mg/2ml vial IV SCH (16:54)
[2018-07-08] MEDS: carVEDilol 3.125mg tablet PO SCH (20:31)
[2018-07-08] MEDS: insulin Lispro (HumaLOG) vial - multi-dose SQ SCH (20:54)
[2018-07-08] MEDS: insulin glargine (Lantus) pen - multi-dose SQ SCH (20:59)
[2018-07-09] MEDS: methylPREDNISolone sod succ 125mg/2ml vial IV SCH ×3 (00:14→16:07)
[2018-07-09] MEDS: metroNIDAZOLE-Flagyl 500mg/NS 100 ML IV SCH ×3 (00:14→16:07)
[2018-07-09 02:00] VITALS: BP 136/67
[2018-07-09] MEDS: ipratropium 0.5 MG/2.5ML nebule IH SCH ×4 (03:29→20:26)
[2018-07-09] MEDS: LORazepam 2 mg/ml vial IV PRN ×2 (03:45→21:09)
[2018-07-09 05:40] LABS: BASOPHILS % (AUTO) 0.1 % (0-1); EOSINOPHILS # (AUTO) 0.1 X10'3 (0-0.9); EOSINOPHILS % (AUTO) 1.4 % (0-6); HEMATOCRIT 37.2 % (35.0-45.0); HEMOGLOBIN 12.5 g/dl (12.0-16.0); LYMPHOCYTES # (AUTO) 0.7 X10'3 (1.1-4.8); MEAN CORPUSCULAR HEMOGLOBIN 27.7 PG (27.0-31.0); MEAN CORPUSCULAR HGB CONC 33.6 % (33.0-36.5); MEAN CORPUSCULAR VOLUME 82.4 FL (78-98); MEAN PLATELET VOLUME 8.9 FL (7.4-10.4); MONOCYTES # (AUTO) 0.2 X10'3 (0-0.9); MONOCYTES % (AUTO) 1.9 % (2-12); NEUTROPHILS # (AUTO) 7.1 X10'3 (1.8-7.7); NEUTROPHILS % (AUTO) 87.6 % (42-75); PLATELET COUNT 192 X10'3 (140-440); RED BLOOD COUNT 4.52 X10'6 (4.20-5.60); RED CELL DISTRIBUTION WIDTH 16.2 % (11.5-14.5); WHITE BLOOD COUNT 8.1 X10'3 (4.5-11.0)
[2018-07-09 05:51] LABS: INR 1.2 INR; PROTHROMBIN TIME 12.5 SECONDS (9.0-12.0)
[2018-07-09 06:00] VITALS: BP 126/54
[2018-07-09 06:17] LABS: ALBUMIN 2.6 G/DL (3.4-5.0); ANION GAP 8 (8-16); BLOOD UREA NITROGEN 16 MG/DL (7-18); BUN/CREATININE RATIO 23.9 (6.6-38.0); CALCIUM 8.3 MG/DL (8.5-10.1); CHLORIDE 97 MMOL/L (99-107); CREATININE 0.67 MG/DL (0.40-0.90); GLUCOSE 156 MG/DL (70-104); MAGNESIUM 1.7 MG/DL (1.5-2.4); PHOSPHORUS 4.2 MG/DL (2.3-4.5); POTASSIUM 3.8 MMOL/L (3.5-5.1); SODIUM 133 MMOL/L (135-145); TOTAL CARBON DIOXIDE 27.9 MMOL/L (24-32); TROPONIN I 0.27 NG/ML (0.0-0.05); eGFR 84 ML/MIN
[2018-07-09] MEDS: K and/or MAG REPLACEMENT MC SCH (06:29)
[2018-07-09] MEDS: pantoprazole 40mg Tablet.DR PO SCH (07:30)
[2018-07-09] MEDS: heparin, porcine 5000 units/ml vial SQ SCH ×2 (07:55→20:05)
[2018-07-09] MEDS: furosemide 20 MG/2 ML vial IV SCH ×2 (07:55→20:04)
[2018-07-09] MEDS: levoFLOXACIN-Levaquin 500mg/D5 100 ML IV SCH (07:56)
[2018-07-09] MEDS: multivitamins, therapeutics tablet PO SCH (08:00)
[2018-07-09] MEDS: thiamine 100mg tablet PO SCH (08:00)
[2018-07-09] MEDS: nicotine 14mg patch - 24hr TD SCH (08:00)
[2018-07-09] MEDS: folic acid 1mg tablet PO SCH (08:00)
[2018-07-09] MEDS: carVEDilol 3.125mg tablet PO SCH ×2 (08:04→20:04)
[2018-07-09] MEDS: potassium Cl oral solution 20 MEQ/15 ML PO SCH ×2 (08:20→17:48)
[2018-07-09] MEDS: aspirin 81mg tab.chew PO SCH (08:30)
[2018-07-09 11:00] VITALS: BP 106/65
[2018-07-09] MEDS: insulin Lispro (HumaLOG) vial - multi-dose SQ SCH ×2 (12:25→18:54)
[2018-07-09 15:00] VITALS: BP 139/49
[2018-07-09] MEDS: predniSONE 20 mg tablet PO SCH (17:48)
[2018-07-09 19:00] VITALS: BP 115/81
[2018-07-09] MEDS: lactobacillus rhamnosus 10,000 MMU CELLS/CAPSULE PO SCH (20:04)
[2018-07-09] MEDS: insulin glargine (Lantus) pen - multi-dose SQ SCH (21:13)
[2018-07-09 23:00] VITALS: BP 134/51
[2018-07-10] MEDS: metroNIDAZOLE 500mg tablet PO SCH ×3 (00:48→15:32)
[2018-07-10] MEDS: ipratropium 0.5 MG/2.5ML nebule IH SCH ×4 (02:41→21:00)
[2018-07-10 03:00] VITALS: BP 132/64
[2018-07-10 06:00] VITALS: BP 106/67
[2018-07-10 06:05] LABS: ALBUMIN 2.5 G/DL (3.4-5.0); ANION GAP 5 (8-16); BLOOD UREA NITROGEN 19 MG/DL (7-18); BUN/CREATININE RATIO 29.2 (6.6-38.0); CALCIUM 8.1 MG/DL (8.5-10.1); CHLORIDE 100 MMOL/L (99-107); CREATININE 0.65 MG/DL (0.40-0.90); GLUCOSE 150 MG/DL (70-104); MAGNESIUM 1.8 MG/DL (1.5-2.4); PHOSPHORUS 4.1 MG/DL (2.3-4.5); POTASSIUM 3.7 MMOL/L (3.5-5.1); SODIUM 135 MMOL/L (135-145); TOTAL CARBON DIOXIDE 29.9 MMOL/L (24-32); eGFR 87 ML/MIN
[2018-07-10 06:06] LABS: INR 1.2 INR; PROTHROMBIN TIME 12.2 SECONDS (9.0-12.0)
[2018-07-10] MEDS: potassium Cl oral solution 20 MEQ/15 ML PO SCH ×2 (07:06→16:09)
[2018-07-10] MEDS: pantoprazole 40mg Tablet.DR PO SCH (07:07)
[2018-07-10] MEDS: K and/or MAG REPLACEMENT MC SCH (08:00)
[2018-07-10] MEDS: furosemide 20 MG/2 ML vial IV SCH ×2 (08:43→20:44)
[2018-07-10] MEDS: thiamine 100mg tablet PO SCH (08:44)
[2018-07-10] MEDS: lactobacillus rhamnosus 10,000 MMU CELLS/CAPSULE PO SCH ×2 (08:44→20:45)
[2018-07-10] MEDS: multivitamins, therapeutics tablet PO SCH (08:44)
[2018-07-10] MEDS: folic acid 1mg tablet PO SCH (08:44)
[2018-07-10] MEDS: predniSONE 20 mg tablet PO SCH (08:44)
[2018-07-10] MEDS: carVEDilol 3.125mg tablet PO SCH ×2 (08:44→20:45)
[2018-07-10] MEDS: nicotine 14mg patch - 24hr TD SCH (08:45)
[2018-07-10] MEDS: heparin, porcine 5000 units/ml vial SQ SCH ×2 (08:45→20:44)
[2018-07-10] MEDS: aspirin 81mg tab.chew PO SCH (08:55)
[2018-07-10] MEDS: LORazepam 2 mg/ml vial IV PRN ×2 (09:40→20:45)
[2018-07-10 11:00] VITALS: BP 122/68
[2018-07-10] MEDS: levoFLOXACIN 500mg tablet PO SCH (11:32)
[2018-07-10] MEDS: insulin Lispro (HumaLOG) vial - multi-dose SQ SCH ×2 (13:21→18:52)
[2018-07-10 15:00] VITALS: BP 145/75
[2018-07-10 19:00] VITALS: BP 129/50
[2018-07-10] MEDS: insulin glargine (Lantus) pen - multi-dose SQ SCH (21:01)
[2018-07-10 23:00] VITALS: BP 151/69
[2018-07-11] MEDS: metroNIDAZOLE 500mg tablet PO SCH ×3 (00:32→17:27)
[2018-07-11] MEDS: LORazepam 2 mg/ml vial IV PRN (00:33)
[2018-07-11 03:00] VITALS: BP 161/67
[2018-07-11] MEDS: ipratropium 0.5 MG/2.5ML nebule IH SCH ×4 (03:00→20:00)
[2018-07-11 06:00] VITALS: BP 169/71
[2018-07-11 06:00] LABS: ALBUMIN 2.5 G/DL (3.4-5.0); ANION GAP 6 (8-16); BLOOD UREA NITROGEN 20 MG/DL (7-18); BUN/CREATININE RATIO 33.9 (6.6-38.0); CALCIUM 7.8 MG/DL (8.5-10.1); CHLORIDE 99 MMOL/L (99-107); CREATININE 0.59 MG/DL (0.40-0.90); GLUCOSE 113 MG/DL (70-104); MAGNESIUM 1.8 MG/DL (1.5-2.4); PHOSPHORUS 3.4 MG/DL (2.3-4.5); POTASSIUM 3.9 MMOL/L (3.5-5.1); SODIUM 136 MMOL/L (135-145); TOTAL CARBON DIOXIDE 30.8 MMOL/L (24-32); eGFR > 90 ML/MIN
[2018-07-11] MEDS: heparin, porcine 5000 units/ml vial SQ SCH ×3 (08:00→20:14)
[2018-07-11] MEDS: K and/or MAG REPLACEMENT MC SCH (08:00)
[2018-07-11] MEDS: nicotine 14mg patch - 24hr TD SCH ×3 (08:00→08:45)
[2018-07-11] MEDS: folic acid 1mg tablet PO SCH (08:23)
[2018-07-11] MEDS: multivitamins, therapeutics tablet PO SCH (08:23)
[2018-07-11] MEDS: lactobacillus rhamnosus 10,000 MMU CELLS/CAPSULE PO SCH ×2 (08:23→20:13)
[2018-07-11] MEDS: pantoprazole 40mg Tablet.DR PO SCH (08:23)
[2018-07-11] MEDS: thiamine 100mg tablet PO SCH (08:23)
[2018-07-11] MEDS: potassium Cl oral solution 20 MEQ/15 ML PO SCH ×2 (08:25→17:28)
[2018-07-11] MEDS: aspirin 81mg tab.chew PO SCH (08:25)
[2018-07-11] MEDS: carVEDilol 3.125mg tablet PO SCH ×2 (08:25→20:13)
[2018-07-11] MEDS: furosemide 20 MG/2 ML vial IV SCH ×2 (08:25→20:13)
[2018-07-11] MEDS: prednisone 10mg tablet PO SCH (08:25)
[2018-07-11 11:00] VITALS: BP 137/62
[2018-07-11] MEDS: levoFLOXACIN 500mg tablet PO SCH (11:00)
[2018-07-11 15:00] VITALS: BP 165/73
[2018-07-11 19:00] VITALS: BP 168/87
[2018-07-11] MEDS: insulin Lispro (HumaLOG) vial - multi-dose SQ SCH (19:33)
[2018-07-11] MEDS: insulin glargine (Lantus) pen - multi-dose SQ SCH (21:00)
[2018-07-11 23:00] VITALS: BP 167/80
[2018-07-12] MEDS: metroNIDAZOLE 500mg tablet PO SCH ×2 (00:58→07:54)
[2018-07-12] MEDS: ipratropium 0.5 MG/2.5ML nebule IH SCH ×3 (02:21→14:09)
[2018-07-12 03:00] VITALS: BP 143/60
[2018-07-12 06:00] VITALS: BP 115/48
[2018-07-12 07:02] LABS: ALBUMIN 2.5 G/DL (3.4-5.0); ANION GAP 4 (8-16); BLOOD UREA NITROGEN 23 MG/DL (7-18); BUN/CREATININE RATIO 31.5 (6.6-38.0); CALCIUM 7.9 MG/DL (8.5-10.1); CHLORIDE 96 MMOL/L (99-107); CREATININE 0.73 MG/DL (0.40-0.90); GLUCOSE 231 MG/DL (70-104); MAGNESIUM 1.9 MG/DL (1.5-2.4); POTASSIUM 4.2 MMOL/L (3.5-5.1); SODIUM 133 MMOL/L (135-145); TOTAL CARBON DIOXIDE 33.4 MMOL/L (24-32); eGFR 76 ML/MIN
[2018-07-12] MEDS: prednisone 10mg tablet PO SCH (07:54)
[2018-07-12] MEDS: carVEDilol 3.125mg tablet PO SCH (07:54)
[2018-07-12] MEDS: folic acid 1mg tablet PO SCH (07:54)
[2018-07-12] MEDS: potassium Cl oral solution 20 MEQ/15 ML PO SCH (07:54)
[2018-07-12] MEDS: aspirin 81mg tab.chew PO SCH (07:54)
[2018-07-12] MEDS: lactobacillus rhamnosus 10,000 MMU CELLS/CAPSULE PO SCH (07:54)
[2018-07-12] MEDS: thiamine 100mg tablet PO SCH (07:55)
[2018-07-12] MEDS: pantoprazole 40mg Tablet.DR PO SCH (07:55)
[2018-07-12] MEDS: multivitamins, therapeutics tablet PO SCH (07:55)
[2018-07-12] MEDS: furosemide 20 MG/2 ML vial IV SCH (07:56)
[2018-07-12] MEDS: heparin, porcine 5000 units/ml vial SQ SCH (07:56)
[2018-07-12] MEDS: K and/or MAG REPLACEMENT MC SCH (07:57)
[2018-07-12 11:00] VITALS: BP 141/69
[2018-07-12] MEDS: levoFLOXACIN 500mg tablet PO SCH (11:19)
[2018-07-12 15:20] VITALS: BP 145/68
== END 2018-07-12 15:30 | DRG 242 ==
LOC: ER 11:24 → ED HOLD 13:06 → PCU 3S 14:35 → PACU 07-07 18:03 → PCU 3S 07-07 21:20
PROVIDERS: ADMIT Internal Medicine; ATTEND Internal Medicine
PROC: 02H63JZ Insertion of Pacemaker Lead into Right Atrium, Percutaneous Approach (ICD-10-PCS; 2018-07-07)
PROC: 02HK3JZ Insertion of Pacemaker Lead into Right Ventricle, Percutaneous Approach (ICD-10-PCS; 2018-07-07)
PROC: 0JH606Z Insertion of Pacemaker, Dual Chamber into Chest Subcutaneous Tissue and Fascia, Open Approach (ICD-10-PCS; principal; 2018-07-07 16:35)
PROC: BW241ZZ Computerized Tomography (CT Scan) of Chest and Abdomen using Low Osmolar Contrast (ICD-10-PCS; 2018-07-08)
DX: I44.2 Atrioventricular block, complete (principal); G93.40 Encephalopathy, unspecified; I50.33 Acute on chronic diastolic (congestive) heart failure; J96.20 Acute and chronic respiratory failure, unspecified whether with hypoxia or hypercapnia; J18.9 Pneumonia, unspecified organism; F05 Delirium due to known physiological condition; F10.239 Alcohol dependence with withdrawal, unspecified; J44.1 Chronic obstructive pulmonary disease with (acute) exacerbation; J98.11 Atelectasis; J44.0 Chronic obstructive pulmonary disease with (acute) lower respiratory infection; F03.90 Unspecified dementia, unspecified severity, without behavioral disturbance, psychotic disturbance, mood disturbance, and anxiety; T17.990A Other foreign object in respiratory tract, part unspecified in causing asphyxiation, initial encounter; Z60.2 Problems related to living alone; X58.XXXA Exposure to other specified factors, initial encounter; F17.210 Nicotine dependence, cigarettes, uncomplicated; E11.9 Type 2 diabetes mellitus without complications; I11.0 Hypertensive heart disease with heart failure; T38.0X5A Adverse effect of glucocorticoids and synthetic analogues, initial encounter; Z90.49 Acquired absence of other specified parts of digestive tract; Z90.710 Acquired absence of both cervix and uterus; Z88.0 Allergy status to penicillin; Z88.2 Allergy status to sulfonamides; Z91.041 Radiographic dye allergy status; Z71.41 Alcohol abuse counseling and surveillance of alcoholic; Z71.6 Tobacco abuse counseling; Y93.89 Activity, other specified; Y92.89 Other specified places as the place of occurrence of the external cause; Y99.8 Other external cause status
CPT/HCPCS: 36415; 36600; 71045; 71048; 71250; 80048; 80053; 81001; 82150; 82803; 82948; 83690; 83735; 83880; 84100; 84484; 85018; 85025; 85610; 87040; 87070; 92616; 93005; 93306; 94640; 94760; 97110; 97116; 97162; 97530; 99285; A4315; A4565; A4649; A6213; A6257; A6446; A7000; C1785; J0360; J0461; J1644; J1815; J1940; J1956; J2060; J2250; J2270; J2930; J3010; J3370; J3411; J3480; J3490; J7030; J7060; J7120; J7512

== ENCOUNTER 2018-07-13 00:55 | Emergency (ER) | payer MEDICARE, MEDICAID ==
[~2018-07-13] VITALS: Ht 149.9 cm; Wt 48.2 kg
[~2018-07-13 00:55] MED LIST changes: +ALBU18HF2 INH; -BUDE0.5A11 IH; -IPRA3AMP9 IH; +PANT20TA3 PO; +TIOT4MIS5 IH
[2018-07-13] MEDS ORDERED: ondansetron/PF 4mg/2ml inj IV ONE (01:15)
[2018-07-13] MEDS ORDERED: aspirin 81mg tab.chew PO ONE (01:15)
[2018-07-13] MEDS: morphine 4 MG/ML inj SYRINge IV ONE ×2 (01:39→01:45)
[2018-07-13 02:12] LABS: PARTIAL THROMBOPLASTIN TIME 27 SECONDS (22-32); PROTHROMBIN TIME 10.7 SECONDS (9.0-12.0)
[2018-07-13 02:18] LABS: ALANINE AMINOTRANSFERASE 17 U/L (12-78); ALBUMIN 2.7 G/DL (3.4-5.0); ALBUMIN/GLOBULIN RATIO 0.8 (1.1-1.5); ALKALINE PHOSPHATASE 70 IU/L (46-116); ANION GAP 1 (8-16); ASPARTATE AMINO TRANSFERASE 17 U/L (10-37); BILIRUBIN,TOTAL 0.4 MG/DL (0.1-1.0); BLOOD UREA NITROGEN 22 MG/DL (7-18); BUN/CREATININE RATIO 34.4 (6.6-38.0); CALCIUM 8.2 MG/DL (8.5-10.1); CHLORIDE 97 MMOL/L (99-107); CREATININE 0.64 MG/DL (0.40-0.90); GLUCOSE 210 MG/DL (70-104); POTASSIUM 4.3 MMOL/L (3.5-5.1); SODIUM 133 MMOL/L (135-145); TOTAL CARBON DIOXIDE 35.3 MMOL/L (24-32); TOTAL PROTEIN 5.9 G/DL (6.4-8.2); eGFR 89 ML/MIN
[2018-07-13 02:30] LABS: LIPASE 190 U/L (73-393)
[2018-07-13 02:36] VITALS: BP 173/79
[2018-07-13 02:41] LABS: BASOPHILS % (AUTO) 0 % (0-1); EOSINOPHILS # (AUTO) 0.2 X10'3 (0-0.9); EOSINOPHILS % (AUTO) 1.8 % (0-6); HEMATOCRIT 41.1 % (35.0-45.0); HEMOGLOBIN 13.6 g/dl (12.0-16.0); LYMPHOCYTES # (AUTO) 1.7 X10'3 (1.1-4.8); LYMPHOCYTES % (AUTO) 17.5 % (21-51); MEAN CORPUSCULAR HEMOGLOBIN 27.5 PG (27.0-31.0); MEAN CORPUSCULAR VOLUME 83.3 FL (78-98); MEAN PLATELET VOLUME 9.2 FL (7.4-10.4); NEUTROPHILS % (AUTO) 70.7 % (42-75); PLATELET COUNT 224 X10'3 (140-440); RED BLOOD COUNT 4.93 X10'6 (4.20-5.60); RED CELL DISTRIBUTION WIDTH 16.8 % (11.5-14.5); WHITE BLOOD COUNT 9.9 X10'3 (4.5-11.0)
[2018-07-13 02:56] LABS: CLARITY,URINE SLIGHTLY CLOUDY (Clear); COLOR,URINE YELLOW (Yellow); GLUCOSE, URINE >=1000 mg/dl (Neg); KETONES,URINE NEGATIVE (Neg); LEUKOCYTE ESTERASE ,URINE SMALL (Neg); NITRITES, URINE NEGATIVE (Neg); OCCULT BLOOD,URINE TRACE-INTACT (Neg); PH,URINE 6.5 (4.8-8.0); PROTEIN,URINE NEGATIVE (Neg); UROBILINOGEN,URINE 0.2 E.U/dL (0.2-1.0)
[2018-07-13 03:05] LABS: UA COLLECTION TYPE CLN CATCH MIDSTREAM
[2018-07-13 03:06] LABS: BACTERIA,URINE FEW /HPF (Neg); RBC,URINE 0-2 /HPF (0-2); RENAL CELLS, URINE FEW /HPF; SQUAMOUS EPITHELIAL CELL,UR MODERATE /LPF (FEW); WBC,URINE 20-30 /HPF (0-4)
== END 2018-07-13 03:44 | disposition home or self-care (01) ==
LOC: ER 00:55
DX: R07.89 Other chest pain (principal); J44.9 Chronic obstructive pulmonary disease, unspecified; E11.9 Type 2 diabetes mellitus without complications; F17.200 Nicotine dependence, unspecified, uncomplicated; Z90.49 Acquired absence of other specified parts of digestive tract; Z90.710 Acquired absence of both cervix and uterus; Z88.0 Allergy status to penicillin; Z95.0 Presence of cardiac pacemaker; Z88.2 Allergy status to sulfonamides; Z79.899 Other long term (current) drug therapy
CPT/HCPCS: 36415; 71045; 80053; 81001; 83690; 83735; 83880; 84484; 85025; 85610; 85730; 87088; 93005; 96374; 99285; J2405; J7030; J2270

== ENCOUNTER 2018-10-04 11:00 | Emergency (ER) | payer MEDICARE, MEDICAID ==
[~2018-10-04] VITALS: Ht 149.9 cm; Wt 48.0 kg
[2018-10-04] MEDS ORDERED: albuterol 2.5 MG/3 ML nebule NEB ONE (11:25)
[2018-10-04 11:53] LABS: BASOPHILS # (AUTO) 0.1 X10'3 (0-0.2); BASOPHILS % (AUTO) 0.9 % (0-1); EOSINOPHILS # (AUTO) 0.2 X10'3 (0-0.9); EOSINOPHILS % (AUTO) 2.1 % (0-6); HEMATOCRIT 38.5 % (35.0-45.0); HEMOGLOBIN 13.1 g/dl (12.0-16.0); LYMPHOCYTES # (AUTO) 1.8 X10'3 (1.1-4.8); LYMPHOCYTES % (AUTO) 25.2 % (21-51); MEAN CORPUSCULAR HEMOGLOBIN 29.6 PG (27.0-31.0); MEAN CORPUSCULAR HGB CONC 33.9 % (33.0-36.5); MEAN CORPUSCULAR VOLUME 87.4 FL (78-98); MEAN PLATELET VOLUME 7.4 FL (7.4-10.4); MONOCYTES # (AUTO) 0.9 X10'3 (0-0.9); MONOCYTES % (AUTO) 12.4 % (2-12); NEUTROPHILS # (AUTO) 4.3 X10'3 (1.8-7.7); NEUTROPHILS % (AUTO) 59.4 % (42-75); PLATELET COUNT 237 X10'3 (140-440); RED CELL DISTRIBUTION WIDTH 15.8 % (11.5-14.5); WHITE BLOOD COUNT 7.2 X10'3 (4.5-11.0)
[2018-10-04 12:12] LABS: ALANINE AMINOTRANSFERASE 14 U/L (12-78); ALBUMIN 3.6 G/DL (3.4-5.0); ALBUMIN/GLOBULIN RATIO 1.1 (1.1-1.5); ALKALINE PHOSPHATASE 60 IU/L (46-116); ANION GAP 9 (8-16); ASPARTATE AMINO TRANSFERASE 17 U/L (10-37); BILIRUBIN,TOTAL 0.4 MG/DL (0.1-1.0); BLOOD UREA NITROGEN 10 MG/DL (7-18); BUN/CREATININE RATIO 15.4 (6.6-38.0); CALCIUM 8.5 MG/DL (8.5-10.1); CHLORIDE 91 MMOL/L (99-107); CREATININE 0.65 MG/DL (0.40-0.90); GLUCOSE 122 MG/DL (70-104); POTASSIUM 3.8 MMOL/L (3.5-5.1); SODIUM 128 MMOL/L (135-145); TOTAL CARBON DIOXIDE 28.5 MMOL/L (24-32); eGFR 87 ML/MIN
[2018-10-04 12:21] LABS: MAGNESIUM 1.6 MG/DL (1.5-2.4)
[2018-10-04 12:48] VITALS: BP 111/51
== END 2018-10-04 13:39 | disposition home or self-care (01) ==
LOC: ER 11:00
DX: R07.89 Other chest pain (principal); J44.9 Chronic obstructive pulmonary disease, unspecified; E11.9 Type 2 diabetes mellitus without complications; F17.210 Nicotine dependence, cigarettes, uncomplicated; Z90.49 Acquired absence of other specified parts of digestive tract; Z90.710 Acquired absence of both cervix and uterus
CPT/HCPCS: 36415; 71045; 80053; 83735; 83880; 84145; 84484; 85025; 93005; 94640; 94760; 99284

== ENCOUNTER 2018-10-05 03:09 | Inpatient (IN) | payer MEDICARE, MEDICAID ==
[~2018-10-05] VITALS: Ht 144.8 cm; Wt 48.0 kg
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
--- NOTE | 2018-10-05 07:31 | NUR ---
ATTEMPTED TO CALL MARTHA LONG HE DID NOT ANSWER AND HIS VOICEMAIL BOX IS FULL UNABLE TO LEAVE A MESSAGE
--- NOTE | 2018-10-05 07:33 | NUR ---
ATTEMPTED TO CALL "PAPI" A FRIEND SHE DID NOT ANSWER, LEFT MESSAGE.
--- NOTE | 2018-10-05 07:56 | NUR ---
CALLED [employer] TO GET A UPDATE THEY HAD NO INFORMATION REGARDING FAMILY.
--- NOTE | 2018-10-05 08:01 | NUR ---
CALLED [facility]PS TO REPORT AND SEE IF THEY HAD ANY INFORMATION, PN HER CONTACT INFO
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
--- NOTE | 2018-10-05 08:10 | NUR ---
ATTEMPED TO CALL SON AND FRIEND AGAIN.
--- NOTE | 2018-10-05 09:12 | NUR ---
SPOKE TO ANGEL SHE DOES NOT WANT TO COME GET HER. SHE SAID SHE WAS TOLD BY PAPI THAT MARTHA SAID HE WANTS EVERYONE TO LEAVE HER ALONE. PT IS WANTING TO GO HOME SHE STATES SHE HAS THE GATE CODE.
--- NOTE | 2018-10-05 09:12 | NUR ---
SPOKE TO YIMI, SHE WAS GOING TO TALK TO SOMEONE AND CALL ME BACK
--- NOTE | 2018-10-05 10:10 | NUR ---
PT SITTING ON HER BED, PT HAS ATTEMPTED TO SMOKE OUTSIDE, I EXPLAINED THIS IS A NON SMOKING FACILITY
--- NOTE | 2018-10-05 10:17 | NUR ---
YIMI PROTECTIVE SIGNAL REPAIRER CALLED BACK, STATES SHE HAS NO INFORMATION AT THIS TIME.
--- NOTE | 2018-10-05 10:21 | NUR ---
ABOVE NOTE WRITTEN BY CLOTILDE JUAREZ RN
--- NOTE | 2018-10-05 11:30 | NUR ---
assumed care of pt from Bharti MAYNARD, pt is sleeping, resp even and unlabored
--- NOTE | 2018-10-05 12:11 | NUR ---
pt amb with steady gait to restroom using walker, pt is GCS 15, resp even and unlabored, skin p/w/d
--- NOTE | 2018-10-05 12:12 | NUR ---
Patient walked out of room and stated to me that she "just doesn't feel well and I think you need to admit me". I told patient, when we did a work up on you yesterday you did not meet any need for admission. Patient states, "well now I'm having chest pain and its getting worse." I spoke with Dr. Munoz regarding this and he stated to get a new EKG and another troponin. Vital signs as charted in interventions.
--- NOTE | 2018-10-05 12:39 | NUR ---
YIMI RETURNED CALL SAYING THEY HAVE EXHAUSTED ALL OPTIONS. THERE ARE NO OPTIONS OTHER THAN ADMITTING HER FOR PLACEMENT.
--- NOTE | 2018-10-05 12:50 | NUR ---
EDDIE THOMAS [phone] CALLED AT 1020 AM: MAILBOX FULL AND CANNOT TAKE MESSAGES. EDDIE THOMAS [phone] CALLED AT 1020 AM: LEFT MESSAGE. EDDIE HILTON/(JOSUÉ) [phone] AM: BUSY. CALLED AGAIN 1220, LEFT MESSAGE. MENG Lantigua.Maynor ESPINOZA [phone] AM: LEFT MESSAGE. [facility] [place] 24 HOUR HOTLINE, FILE MACHINE OPERATOR OLIVER [phone] CALLED AT 1210. SHE STATES THAT SON IS NOT OBGLIGATED TO PICK HER UP. OLIVER STATES SHE CANNOT ADVISE US WHAT TO DO WITH PATIENT AND SUGGESTS ETHICS COMMITEE. NOTIFIED, CAESAR MABRY. ADVISED THAT PATIENT IS UNSAFE TO DISCHARGE HOME. CONSIDER ADMISSION FOR PLACEMENT.
--- NOTE | 2018-10-05 13:03 | NUR ---
PT EATING LUNCH
[2018-10-05] MEDS ORDERED: potassium Cl 40MEQ/NS 500ml 500 ML IV PRN ×2 (13:20)
[2018-10-05] MEDS ORDERED: magnesium Cl slow-release 64mg tablet PO PRN (13:20)
[2018-10-05] MEDS ORDERED: HYDROcodone/acetaminophen 5mg/325mg tablet PO PRN (13:20)
[2018-10-05] MEDS ORDERED: magnesium hydroxide 30ml (MOM) UD suspension PO PRN (13:20)
[2018-10-05] MEDS ORDERED: acetaminophen 325mg tablet PO PRN ×2 (13:20)
[2018-10-05] MEDS ORDERED: morphine 2 MG/ML inj. syringe IV PRN (13:20)
[2018-10-05] MEDS ORDERED: potassium Cl 20 mEq SR tablet PO PRN ×2 (13:20)
[2018-10-05] MEDS ORDERED: magnesium 4gm in 100ml NS 100 ML IV PRN (13:20)
[2018-10-05] MEDS ORDERED: mag hydrox/Alum hydrox/simeth 30ml oral suspension PO PRN (13:20)
[2018-10-05] MEDS ORDERED: ondansetron/PF 4mg/2ml inj IV PRN (13:20)
--- NOTE | 2018-10-05 15:12 | NUR ---
report to Cyn MAYNARD
--- NOTE | 2018-10-05 15:17 | NUR ---
PT IS REFUSING IV, "I DON'T WANT ONE...I CAN SWALLOW PILLS", EXPLAINED REASON FOR IV AND PT CONTINUES TO REFUSE
--- NOTE | 2018-10-05 15:30 | NUR ---
patient report received by Cyn all questions were answered.
--- NOTE | 2018-10-05 15:33 | NUR ---
PT HOME MEDS SENT TO PHARMACY
--- NOTE | 2018-10-05 16:20 | NUR ---
Patient complaint of chest pain, VS taken and EKG order and taken at this time. Physician notified, VS stable and EKG showed no changes at this time or ST elevation according to the ER Physician.
[2018-10-05] MEDS ORDERED: dextrose 50%-water 50ml dispensing syringe IV PRN ×2 (16:25)
[2018-10-05] MEDS ORDERED: insulin Lispro (HumaLOG) vial - multi-dose SQ SCH (16:25)
[2018-10-05] MEDS ORDERED: glucagon, human recombinant 1mg kit SUBCUT PRN (16:25)
[2018-10-05] MEDS ORDERED: MESSAGE TO PHARMACY PO ONE (16:25)
[2018-10-05] MEDS ORDERED: dextrose ORAL solution 15 GM/59 ML bottle PO PRN ×2 (16:25)
[2018-10-05 16:26] VITALS: BP 146/59
--- NOTE | 2018-10-05 16:30 | NUR ---
PATIENT IN ROOM, VS ARE STABLE, PATIENT NO LONGER COMPLAINING OF ANY CHEST PAIN AT THIS TIME, BREATHE SOUNDS NORMAL, HEARTS SOUNDS S1S2, PATIENT ASSESSED NO SKIN ISSUES NOTED AT THIS TIME. PATIENT WAS MADE COMFORTABLE AND ALL NEEDS WERE MET, EXTRA PILLOW, OXYGEN AT 2.5 LITERS, AND TWO WARM BLANKETS.
[2018-10-05 18:00] VITALS: BP 145/67
--- NOTE | 2018-10-05 18:30 | NUR ---
Problems reprioritized. Patient report given, questions answered & plan of care reviewed with OLIVER MAYNARD.
--- NOTE | 2018-10-05 18:39 | NUR ---
Patient in room [facility]BI 346. I have received report from Daniel MAYNARD and had the opportunity to ask questions and assume patient care. Pt sleeping with no signs of distress. Will continue to monitor.
[2018-10-05] MEDS: heparin, porcine 5000 units/ml vial SQ SCH (20:00)
[2018-10-05 20:16] LABS: HEMOGLOBIN A1C 7.2 % (4.5-6.2)
[2018-10-05] MEDS ORDERED: temazepam 15mg capsule PO PRN (21:00)
[2018-10-05] MEDS: insulin glargine (Lantus) pen - multi-dose SQ SCH (21:00)
--- NOTE | 2018-10-05 21:28 | NUR ---
PT refusing IV Addendum: 10/05/18 at 2128 by Pina Casarez RN Amended: Links added.
[2018-10-06 02:32] VITALS: BP 132/59
[2018-10-06 05:29] LABS: BASOPHILS % (AUTO) 0.6 % (0-1); EOSINOPHILS # (AUTO) 0.3 X10'3 (0-0.9); EOSINOPHILS % (AUTO) 4.3 % (0-6); HEMATOCRIT 38.3 % (35.0-45.0); HEMOGLOBIN 12.6 g/dl (12.0-16.0); LYMPHOCYTES # (AUTO) 1.7 X10'3 (1.1-4.8); LYMPHOCYTES % (AUTO) 22.8 % (21-51); MEAN CORPUSCULAR HEMOGLOBIN 28.9 PG (27.0-31.0); MEAN CORPUSCULAR HGB CONC 32.8 % (33.0-36.5); MEAN CORPUSCULAR VOLUME 88.1 FL (78-98); MEAN PLATELET VOLUME 7.9 FL (7.4-10.4); MONOCYTES % (AUTO) 13.9 % (2-12); NEUTROPHILS # (AUTO) 4.3 X10'3 (1.8-7.7); NEUTROPHILS % (AUTO) 58.4 % (42-75); PLATELET COUNT 232 X10'3 (140-440); RED BLOOD COUNT 4.35 X10'6 (4.20-5.60); RED CELL DISTRIBUTION WIDTH 15.3 % (11.5-14.5); WHITE BLOOD COUNT 7.4 X10'3 (4.5-11.0)
[2018-10-06 05:34] LABS: ALBUMIN 3.5 G/DL (3.4-5.0); ANION GAP 8 (8-16); BLOOD UREA NITROGEN 9 MG/DL (7-18); CHLORIDE 97 MMOL/L (99-107); CREATININE 0.53 MG/DL (0.40-0.90); GLUCOSE 126 MG/DL (70-104); MAGNESIUM 1.8 MG/DL (1.5-2.4); POTASSIUM 3.7 MMOL/L (3.5-5.1); SODIUM 133 MMOL/L (135-145); TOTAL CARBON DIOXIDE 28.2 MMOL/L (24-32); eGFR > 90 ML/MIN
--- NOTE | 2018-10-06 06:29 | NUR ---
Patient in room RUBI 346. I have received report from Pina MAYNARD and had the opportunity to ask questions and assume patient care.
--- NOTE | 2018-10-06 06:41 | NUR ---
Problems reprioritized. Patient report given, questions answered & plan of care reviewed with Daniel RN. Pt sleeping comfortably with no signs of distress.
--- NOTE | 2018-10-06 07:30 | NUR ---
Patient still refusing IV at this time.
[2018-10-06 07:47] VITALS: BP 128/54
[2018-10-06] MEDS: heparin, porcine 5000 units/ml vial SQ SCH ×2 (08:00→19:34)
[2018-10-06] MEDS: K and/or MAG REPLACEMENT MC SCH (08:00)
--- NOTE | 2018-10-06 10:30 | NUR ---
patient suspected of smoking in room. patient sonya at this time. Michael was found on toilet seat, so security was notified to come to room to search patient belongings to make sure no smoking items.
--- NOTE | 2018-10-06 10:34 | NUR ---
patient was found to have 2 packs of cigarettes and a liter. As well as a weekly medication packets that is to be sent to pharmacy.
[2018-10-06 12:44] VITALS: BP 138/85
[2018-10-06 18:00] VITALS: BP 136/55
--- NOTE | 2018-10-06 18:30 | NUR ---
Patient in room RUBI 346. I have received report from Daniel MAYNARD and had the opportunity to ask questions and assume patient care. Pt is in bed, eating dinner.
--- NOTE | 2018-10-06 18:39 | NUR ---
Problems reprioritized. Patient report given, questions answered & plan of care reviewed with Samuel MAYNARD.
[2018-10-06] MEDS: insulin glargine (Lantus) pen - multi-dose SQ SCH (21:00)
[2018-10-07] VITALS: BP 127/64
[2018-10-07] MEDS: LORazepam 0.5 MG tablet PO PRN ×2 (02:47→09:01)
[2018-10-07 04:31] LABS: BASOPHILS # (AUTO) 0.1 X10'3 (0-0.2); BASOPHILS % (AUTO) 0.7 % (0-1); EOSINOPHILS # (AUTO) 0.3 X10'3 (0-0.9); EOSINOPHILS % (AUTO) 3.9 % (0-6); HEMATOCRIT 36.5 % (35.0-45.0); HEMOGLOBIN 12.2 g/dl (12.0-16.0); LYMPHOCYTES # (AUTO) 2.1 X10'3 (1.1-4.8); LYMPHOCYTES % (AUTO) 27.7 % (21-51); MEAN CORPUSCULAR HEMOGLOBIN 29.4 PG (27.0-31.0); MEAN CORPUSCULAR HGB CONC 33.5 % (33.0-36.5); MEAN CORPUSCULAR VOLUME 87.8 FL (78-98); MEAN PLATELET VOLUME 7.4 FL (7.4-10.4); MONOCYTES % (AUTO) 13.7 % (2-12); PLATELET COUNT 235 X10'3 (140-440); RED BLOOD COUNT 4.16 X10'6 (4.20-5.60); RED CELL DISTRIBUTION WIDTH 15.5 % (11.5-14.5); WHITE BLOOD COUNT 7.5 X10'3 (4.5-11.0)
[2018-10-07 04:51] LABS: ALBUMIN 3.2 G/DL (3.4-5.0); ANION GAP 9 (8-16); BLOOD UREA NITROGEN 10 MG/DL (7-18); BUN/CREATININE RATIO 17.9 (6.6-38.0); CALCIUM 8.8 MG/DL (8.5-10.1); CHLORIDE 98 MMOL/L (99-107); CREATININE 0.56 MG/DL (0.40-0.90); GLUCOSE 186 MG/DL (70-104); MAGNESIUM 1.8 MG/DL (1.5-2.4); POTASSIUM 3.9 MMOL/L (3.5-5.1); SODIUM 136 MMOL/L (135-145); eGFR > 90 ML/MIN
--- NOTE | 2018-10-07 06:00 | NUR ---
Patient in room RUBI 346. I have received report from JOSE MAYNARD and had the opportunity to ask questions and assume patient care.
--- NOTE | 2018-10-07 06:32 | NUR ---
Patient in room RUBI 346. I have received report from Rea MAYNARD and had the opportunity to ask questions and assume patient care. Pt is up in luna walking with walker Addendum: 10/07/18 at 0635 by Keyon Sosa RN Disregard this, wrong text. Report was given to Rea
--- NOTE | 2018-10-07 06:35 | NUR ---
Problems reprioritized. Patient report given, questions answered & plan of care reviewed with Rea MAYNARD. Patient is up in luna, walking with walker
[2018-10-07 07:00] VITALS: BP 141/67
[2018-10-07] MEDS: heparin, porcine 5000 units/ml vial SQ SCH (07:52)
[2018-10-07] MEDS ORDERED: PARoxetine 10mg tablet PO SCH (08:00)
[2018-10-07] MEDS: K and/or MAG REPLACEMENT MC SCH (08:00)
[2018-10-07] MEDS ORDERED: carVEDilol 3.125mg tablet PO SCH (08:00)
--- NOTE | 2018-10-07 08:09 | NUR ---
PT HAS BEEN TO THE DESK SEVERAL TIMES TO ASK QUESTIONS, SHE IS ALSO FOLLOWING ME AROUND THE HALLS. SHE CURRENTLY WANTS TO SPEAK WITH CASE MANAGEMENT. CASE MANAGEMENT NOTIFIED AT 0805
--- NOTE | 2018-10-07 08:59 | NUR ---
PT HAS BEEN EDUCATED SEVERAL TIMES ON HOW TO UTILIZE HER CALL LIGHT, SHE CONTINUES TO INTERUPT OTHER MED PASSES AND PT'S AND FOLLOWSME AROUND ASKING FOR STUFF, SHE CAME TO THE DESK AND ASKED FOR ATIVAN. WILL GET IT FOR HER
--- NOTE | 2018-10-07 09:02 | NUR ---
GAVE PT HER ATIVAN, EDUCATED HER ON THE BENEFITS AND SIDE EFFECTS OF ATIVAN, SHE STATES SHE UNDERSTANDS. SHE WANTS TO KNOW WHEN SHE CAN GET OUT OF HERE, I EXPLAINED THAT I CALLED CASE MANAGEMENT AND THEY WILL COME TO SPEAK WITH HER.
--- NOTE | 2018-10-07 09:03 | NUR ---
JUST LEFT PT'SROOM, SHE IS FOLLOWING ME AND ASKING FOR COFFEE, I SUGGESTED THAT SHE FINISH HER MILK FIRST.
--- NOTE | 2018-10-07 10:09 | NUR ---
CHONG FROM CALLED AT 0935 TO INFORM ME THAT SHE SPOKE WITH PT'S CAREGIVER AND THAT SHE WOULD BE HERE IN TWO HRS TO PICK HER UP. HOSPITALIST NOTIFIED. WILL PROCEED WITH D/C ORDERS
[2018-10-07 11:00] VITALS: BP 140/72
== END 2018-10-07 13:19 | disposition home health service (06) | DRG 204 ==
LOC: ER 03:09 → ED HOLD 13:19 → EDBEDREQ 14:58 → SUR 3N 15:47
PROVIDERS: ADMIT Internal Medicine; ATTEND Family Medicine
DX: R07.81 Pleurodynia (principal); E11.9 Type 2 diabetes mellitus without complications; F03.90 Unspecified dementia, unspecified severity, without behavioral disturbance, psychotic disturbance, mood disturbance, and anxiety; I25.10 Atherosclerotic heart disease of native coronary artery without angina pectoris; Z60.2 Problems related to living alone; F10.10 Alcohol abuse, uncomplicated; J44.9 Chronic obstructive pulmonary disease, unspecified; Z95.0 Presence of cardiac pacemaker; Z90.49 Acquired absence of other specified parts of digestive tract; Z90.710 Acquired absence of both cervix and uterus; Z79.899 Other long term (current) drug therapy; Z88.0 Allergy status to penicillin; Z88.2 Allergy status to sulfonamides; Z91.041 Radiographic dye allergy status; Z80.9 Family history of malignant neoplasm, unspecified
CPT/HCPCS: 36415; 80048; 82948; 83036; 83735; 84484; 85025; 93005; 97162; 99285; G0378; J1644; J1815

== ENCOUNTER 2018-10-08 13:09 | Emergency (ER) | payer MEDICARE, MEDICAID | END 2018-10-08 15:06 | disposition left against medical advice (07) | LOC: ER 13:10 | DX: R07.89 Other chest pain (principal); Z53.21 Procedure and treatment not carried out due to patient leaving prior to being seen by health care provider | CPT/HCPCS: 93005; 99281 ==

== ENCOUNTER 2018-10-09 16:45 | Emergency (ER) | payer MEDICARE, MEDICAID ==
[~2018-10-09] VITALS: Ht 149.9 cm; Wt 47.7 kg
[2018-10-09] MEDS ORDERED: aspirin 81mg tab.chew PO ONE (17:05)
[2018-10-09 17:36] LABS: BASOPHILS # (AUTO) 0.1 X10'3 (0-0.2); BASOPHILS % (AUTO) 0.6 % (0-1); EOSINOPHILS # (AUTO) 0.4 X10'3 (0-0.9); EOSINOPHILS % (AUTO) 3.8 % (0-6); HEMATOCRIT 37.4 % (35.0-45.0); HEMOGLOBIN 12.4 g/dl (12.0-16.0); LYMPHOCYTES # (AUTO) 2.1 X10'3 (1.1-4.8); LYMPHOCYTES % (AUTO) 21.7 % (21-51); MEAN CORPUSCULAR HEMOGLOBIN 29.3 PG (27.0-31.0); MEAN CORPUSCULAR HGB CONC 33.2 % (33.0-36.5); MEAN CORPUSCULAR VOLUME 88.4 FL (78-98); MEAN PLATELET VOLUME 7.2 FL (7.4-10.4); MONOCYTES # (AUTO) 0.9 X10'3 (0-0.9); MONOCYTES % (AUTO) 9.4 % (2-12); NEUTROPHILS # (AUTO) 6.3 X10'3 (1.8-7.7); NEUTROPHILS % (AUTO) 64.5 % (42-75); PLATELET COUNT 269 X10'3 (140-440); RED BLOOD COUNT 4.23 X10'6 (4.20-5.60); WHITE BLOOD COUNT 9.7 X10'3 (4.5-11.0)
[2018-10-09 17:48] LABS: ALANINE AMINOTRANSFERASE 12 U/L (12-78); ALBUMIN 3.3 G/DL (3.4-5.0); ALBUMIN/GLOBULIN RATIO 1.1 (1.1-1.5); ALKALINE PHOSPHATASE 59 IU/L (46-116); ANION GAP 10 (8-16); ASPARTATE AMINO TRANSFERASE 14 U/L (10-37); BILIRUBIN,TOTAL 0.4 MG/DL (0.1-1.0); BLOOD UREA NITROGEN 8 MG/DL (7-18); BUN/CREATININE RATIO 11.6 (6.6-38.0); CHLORIDE 93 MMOL/L (99-107); CREATININE 0.69 MG/DL (0.40-0.90); GLUCOSE 163 MG/DL (70-104); POTASSIUM 3.7 MMOL/L (3.5-5.1); SODIUM 129 MMOL/L (135-145); TOTAL CARBON DIOXIDE 25.8 MMOL/L (24-32); TOTAL PROTEIN 6.4 G/DL (6.4-8.2); eGFR 81 ML/MIN
[2018-10-09 17:55] LABS: MAGNESIUM 1.5 MG/DL (1.5-2.4)
[2018-10-09 18:11] VITALS: BP 113/55
== END 2018-10-09 19:33 | disposition home or self-care (01) ==
LOC: ER 16:45
DX: R07.89 Other chest pain (principal); J44.9 Chronic obstructive pulmonary disease, unspecified; E11.9 Type 2 diabetes mellitus without complications; Z90.49 Acquired absence of other specified parts of digestive tract; Z90.710 Acquired absence of both cervix and uterus; Z95.0 Presence of cardiac pacemaker; Z88.0 Allergy status to penicillin; Z88.2 Allergy status to sulfonamides; Z79.899 Other long term (current) drug therapy
CPT/HCPCS: 36415; 71045; 80053; 83735; 83880; 84484; 85025; 93005; 99284

== ENCOUNTER 2018-10-15 11:23 | Emergency (ER) | payer MEDICARE, MEDICAID ==
[~2018-10-15] VITALS: Ht 121.9 cm; Wt 49.0 kg
[2018-10-15 11:38] VITALS: BP 124/78
== END 2018-10-15 12:11 | disposition home or self-care (01) ==
LOC: ER 11:24
DX: R07.89 Other chest pain (principal); J44.9 Chronic obstructive pulmonary disease, unspecified; E11.9 Type 2 diabetes mellitus without complications; F03.90 Unspecified dementia, unspecified severity, without behavioral disturbance, psychotic disturbance, mood disturbance, and anxiety; Z91.041 Radiographic dye allergy status; Z88.2 Allergy status to sulfonamides; Z88.0 Allergy status to penicillin; Z90.89 Acquired absence of other organs; Z90.710 Acquired absence of both cervix and uterus; Z90.49 Acquired absence of other specified parts of digestive tract
CPT/HCPCS: 93005; 99283

== ENCOUNTER 2018-10-15 17:06 | Emergency (ER) | payer MEDICARE, MEDICAID ==
[~2018-10-15] VITALS: Ht 149.9 cm; Wt 48.0 kg
[2018-10-15 17:39] LABS: BASOPHILS # (AUTO) 0.1 X10'3 (0-0.2); EOSINOPHILS # (AUTO) 0.3 X10'3 (0-0.9); EOSINOPHILS % (AUTO) 2.6 % (0-6); HEMATOCRIT 41.6 % (35.0-45.0); HEMOGLOBIN 13.9 g/dl (12.0-16.0); LYMPHOCYTES # (AUTO) 2.8 X10'3 (1.1-4.8); LYMPHOCYTES % (AUTO) 28.5 % (21-51); MEAN CORPUSCULAR HEMOGLOBIN 29.3 PG (27.0-31.0); MEAN CORPUSCULAR HGB CONC 33.3 % (33.0-36.5); MEAN CORPUSCULAR VOLUME 87.8 FL (78-98); MONOCYTES # (AUTO) 0.9 X10'3 (0-0.9); MONOCYTES % (AUTO) 9.3 % (2-12); NEUTROPHILS # (AUTO) 5.7 X10'3 (1.8-7.7); NEUTROPHILS % (AUTO) 58.6 % (42-75); PLATELET COUNT 306 X10'3 (140-440); RED BLOOD COUNT 4.73 X10'6 (4.20-5.60); RED CELL DISTRIBUTION WIDTH 15.1 % (11.5-14.5); WHITE BLOOD COUNT 9.7 X10'3 (4.5-11.0)
[2018-10-15 17:56] LABS: ALANINE AMINOTRANSFERASE 14 U/L (12-78); ALBUMIN/GLOBULIN RATIO 1.1 (1.1-1.5); ALKALINE PHOSPHATASE 76 IU/L (46-116); ANION GAP 5 (8-16); ASPARTATE AMINO TRANSFERASE 18 U/L (10-37); BILIRUBIN,TOTAL 0.5 MG/DL (0.1-1.0); BLOOD UREA NITROGEN 6 MG/DL (7-18); CALCIUM 8.9 MG/DL (8.5-10.1); CHLORIDE 94 MMOL/L (99-107); GLUCOSE 100 MG/DL (70-104); POTASSIUM 3.9 MMOL/L (3.5-5.1); SODIUM 129 MMOL/L (135-145); TOTAL CARBON DIOXIDE 30.3 MMOL/L (24-32); TOTAL PROTEIN 7.8 G/DL (6.4-8.2); eGFR > 90 ML/MIN
[2018-10-15 18:03] LABS: PARTIAL THROMBOPLASTIN TIME 32 SECONDS (22-32); PROTHROMBIN TIME 10.5 SECONDS (9.0-12.0)
[2018-10-15 19:04] VITALS: BP 145/70
== END 2018-10-15 19:07 | disposition home or self-care (01) ==
LOC: ER 17:07
DX: R07.89 Other chest pain (principal); F03.90 Unspecified dementia, unspecified severity, without behavioral disturbance, psychotic disturbance, mood disturbance, and anxiety; J44.9 Chronic obstructive pulmonary disease, unspecified; E11.9 Type 2 diabetes mellitus without complications; Z88.2 Allergy status to sulfonamides; Z88.0 Allergy status to penicillin; Z91.041 Radiographic dye allergy status; Z79.899 Other long term (current) drug therapy; Z90.49 Acquired absence of other specified parts of digestive tract; Z90.89 Acquired absence of other organs; Z90.710 Acquired absence of both cervix and uterus; Z96.89 Presence of other specified functional implants
CPT/HCPCS: 36415; 71045; 80053; 84484; 85025; 85610; 85730; 93005; 99284

== ENCOUNTER 2018-10-15 22:52 | Emergency (ER) | payer MEDICARE, MEDICAID ==
[~2018-10-15] VITALS: Ht 149.9 cm; Wt 48.0 kg
[2018-10-16 01:26] LABS: CLARITY,URINE CLEAR (Clear); COLOR,URINE YELLOW (Yellow); GLUCOSE, URINE NEGATIVE (Neg); KETONES,URINE NEGATIVE (Neg); LEUKOCYTE ESTERASE ,URINE SMALL (Neg); NITRITES, URINE NEGATIVE (Neg); OCCULT BLOOD,URINE TRACE-INTACT (Neg); PROTEIN,URINE NEGATIVE (Neg); UROBILINOGEN,URINE 0.2 E.U/dL (0.2-1.0)
[2018-10-16] MEDS ORDERED: magnesium oxide 400mg tablet PO ONE (01:35)
[2018-10-16 01:42] LABS: UA COLLECTION TYPE CLN CATCH MIDSTREAM
[2018-10-16 01:43] LABS: BACTERIA,URINE 1+ /HPF (Neg); SQUAMOUS EPITHELIAL CELL,UR MANY /LPF (FEW); WBC,URINE 20-30 /HPF (0-4)
[2018-10-16 01:44] LABS: RBC,URINE 0-2 /HPF (0-2)
[2018-10-16 02:23] VITALS: BP 151/63
== END 2018-10-16 02:26 | disposition home or self-care (01) ==
LOC: ER 22:53
DX: R07.89 Other chest pain (principal); F03.90 Unspecified dementia, unspecified severity, without behavioral disturbance, psychotic disturbance, mood disturbance, and anxiety; J44.9 Chronic obstructive pulmonary disease, unspecified; E11.9 Type 2 diabetes mellitus without complications; F17.210 Nicotine dependence, cigarettes, uncomplicated; Z90.49 Acquired absence of other specified parts of digestive tract; Z90.710 Acquired absence of both cervix and uterus; Z95.0 Presence of cardiac pacemaker; Z88.2 Allergy status to sulfonamides; Z88.0 Allergy status to penicillin; Z79.899 Other long term (current) drug therapy
CPT/HCPCS: 81001; 93005; 99284

== ENCOUNTER 2018-10-16 13:54 | Emergency (ER) | payer MEDICARE, MEDICAID ==
[~2018-10-16] VITALS: Ht 149.9 cm; Wt 48.6 kg
[2018-10-16 14:32] VITALS: BP 126/75
== END 2018-10-16 15:25 | disposition home or self-care (01) ==
LOC: ER 13:55
DX: G89.29 Other chronic pain (principal); R07.89 Other chest pain; J44.9 Chronic obstructive pulmonary disease, unspecified; E11.9 Type 2 diabetes mellitus without complications; Z90.49 Acquired absence of other specified parts of digestive tract; Z90.710 Acquired absence of both cervix and uterus; Z95.0 Presence of cardiac pacemaker; Z98.890 Other specified postprocedural states; Z60.2 Problems related to living alone; Z88.0 Allergy status to penicillin; Z88.2 Allergy status to sulfonamides; Z88.8 Allergy status to other drugs, medicaments and biological substances; Z79.899 Other long term (current) drug therapy
CPT/HCPCS: 93005; 99283

== ENCOUNTER 2018-10-21 10:52 | Emergency (ER) | payer MEDICARE, MEDICAID ==
[~2018-10-21] VITALS: Ht 154.9 cm; Wt 59.0 kg
[2018-10-21 11:32] VITALS: BP 122/71
== END 2018-10-21 11:45 | disposition home or self-care (01) ==
LOC: ER 10:53
DX: R06.02 Shortness of breath (principal); R07.9 Chest pain, unspecified; F03.90 Unspecified dementia, unspecified severity, without behavioral disturbance, psychotic disturbance, mood disturbance, and anxiety; J44.9 Chronic obstructive pulmonary disease, unspecified; E11.9 Type 2 diabetes mellitus without complications; Z91.041 Radiographic dye allergy status; Z88.2 Allergy status to sulfonamides; Z88.0 Allergy status to penicillin; Z79.899 Other long term (current) drug therapy; Z90.49 Acquired absence of other specified parts of digestive tract; Z90.710 Acquired absence of both cervix and uterus; Z90.89 Acquired absence of other organs; Z87.01 Personal history of pneumonia (recurrent); Z96.89 Presence of other specified functional implants
CPT/HCPCS: 99283

== ENCOUNTER 2018-10-23 22:10 | Emergency (ER) | payer MEDICARE, MEDICAID ==
[~2018-10-23] VITALS: Ht 152.4 cm; Wt 45.4 kg
[2018-10-23 22:15] VITALS: BP 155/66
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
--- NOTE | 2018-10-23 23:04 | NUR ---
Several attempts made to contact patient's son Wil who does not answer his phone. It is not uncommon for him to not answer his phone while the patient is here in the ED.
== END 2018-10-24 00:36 | disposition home or self-care (01) ==
LOC: ER 22:11
DX: T74.11XA Adult physical abuse, confirmed, initial encounter (principal); J44.9 Chronic obstructive pulmonary disease, unspecified; E11.9 Type 2 diabetes mellitus without complications; Z90.89 Acquired absence of other organs; Z90.710 Acquired absence of both cervix and uterus; Z88.0 Allergy status to penicillin; Z88.2 Allergy status to sulfonamides; Z91.041 Radiographic dye allergy status; Z90.721 Acquired absence of ovaries, unilateral; Y08.89XA Assault by other specified means, initial encounter; Y93.89 Activity, other specified; Y99.8 Other external cause status; Y92.89 Other specified places as the place of occurrence of the external cause
CPT/HCPCS: 99283

== ENCOUNTER 2018-10-24 03:15 | Emergency (ER) | payer MEDICARE, MEDICAID ==
[~2018-10-24] VITALS: Ht 149.9 cm; Wt 48.1 kg
[2018-10-24 04:14] VITALS: BP 138/97
== END 2018-10-24 04:15 | disposition home or self-care (01) ==
LOC: ER 03:15
DX: M54.2 Cervicalgia (principal); M25.512 Pain in left shoulder; J44.9 Chronic obstructive pulmonary disease, unspecified; E11.9 Type 2 diabetes mellitus without complications; Z90.89 Acquired absence of other organs; Z95.0 Presence of cardiac pacemaker; Z90.710 Acquired absence of both cervix and uterus; Z88.0 Allergy status to penicillin; Z88.2 Allergy status to sulfonamides; Z91.041 Radiographic dye allergy status; Z90.721 Acquired absence of ovaries, unilateral
CPT/HCPCS: 99283

== ENCOUNTER 2018-10-24 14:26 | Emergency (ER) | payer MEDICARE, MEDICAID ==
[~2018-10-24] VITALS: Ht 157.5 cm; Wt 60.0 kg
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
[2018-10-24 16:15] VITALS: BP 142/52
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
--- NOTE | 2018-10-24 17:00 | NUR ---
pt. given another drink of water. it was explained to the pt. that she was placed in soft restraints for her safty because she kept trying to crawl over the rail. pt. given a warm balanket. pt. request theat the light stay on...
--- NOTE | 2018-10-24 17:45 | NUR ---
aris with social service. called son chalino horn work [phone] and left a message. his personal phone mail is full and she can not leave a message. pt. resting in prone position with head elevated 70 degrees. pt. is not yelling at this time.
--- NOTE | 2018-10-24 18:12 | NUR ---
Note jasson in EDM - 10/24/18 at 1812 by NUBIA PT WALKED TO THE BATHROOM AND BACK. THIS USED A LOT OF HER ENERGY AND SHE WILL NEED TO USE A BEDSIDE COMMODE FROM NOW ON UNTIL SHE GAINS SOME OF HER STRENGTH BACK AND IS BREATHING BETTER. PT STATES SHE DID NOT TAKE HER LASIX TODAY AND HER SYMPTOMS WITH THIS SOB STARTED SUNDAY EVENING.
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
--- NOTE | 2018-10-24 18:32 | NUR ---
BEHAVIORAL RESTRAINTS ALSO ORDERED IN CASE SOFT RESTRAINTS ARE NOT ENOUGH TO KEEP HER SAFE.
[2018-10-24] MEDS ORDERED: LORazepam 2 mg/ml vial IM ONE (19:05)
--- NOTE | 2018-10-24 20:38 | NUR ---
Recieved report from CAESAR Patino.
--- NOTE | 2018-10-24 21:38 | NUR ---
Patient is not able to get a ride home. No Taxi will take her, her son does not want to come pick her up, the mission will not take her. We are letting her stay the night and will get a ride for her in the morning so she can be safely discharged home.
--- NOTE | 2018-10-24 23:22 | NUR ---
Patient sleeping quietly in bed 16. Low fowlers position. Q15 minute rounding being done for patient safety.
--- NOTE | 2018-10-25 00:42 | NUR ---
Report given to CAESAR Sutherland
--- NOTE | 2018-10-25 09:48 | NUR ---
pt being seen by Tuna Purse Seiner (Hilda), she is calling a cab for the patient, trying her [email or web address] card as CAB company.
== END 2018-10-25 10:20 | disposition home or self-care (01) ==
LOC: ER 14:27
DX: S61.219A Laceration without foreign body of unspecified finger without damage to nail, initial encounter (principal); F10.129 Alcohol abuse with intoxication, unspecified; J44.9 Chronic obstructive pulmonary disease, unspecified; E11.9 Type 2 diabetes mellitus without complications; F17.210 Nicotine dependence, cigarettes, uncomplicated; Z90.49 Acquired absence of other specified parts of digestive tract; Z90.710 Acquired absence of both cervix and uterus; Z90.89 Acquired absence of other organs; Z88.0 Allergy status to penicillin; Z88.2 Allergy status to sulfonamides; Z88.8 Allergy status to other drugs, medicaments and biological substances; Z79.899 Other long term (current) drug therapy; Y90.9 Presence of alcohol in blood, level not specified; Z60.2 Problems related to living alone; X58.XXXA Exposure to other specified factors, initial encounter; Y93.89 Activity, other specified; Y92.89 Other specified places as the place of occurrence of the external cause; Y99.8 Other external cause status
CPT/HCPCS: 96372; 99284; J2060

== ENCOUNTER 2018-10-26 10:35 | Emergency (ER) | payer MEDICARE, MEDICAID ==
[~2018-10-26] VITALS: Ht 149.9 cm; Wt 48.2 kg
[2018-10-26 11:22] VITALS: BP 151/82
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
--- NOTE | 2018-10-26 14:15 | NUR ---
Spoke with Bekah at [facility], states patient options are to go to the [place] or home, explained from previous hospital stays that I know she is on the Do Not Service List at the [place], Bekah states as of yesterday 10-25-18, patient could return and if she could not, she can go home and the code to the house is 0444, called [facility] [place] and spoke with Keyon, he does confirm that she can not go to the [place], spoke with Hilda in health and social care teacher and she also agrees that patient can return home, called Kathy in the ER to notify her that patient plan was to return home, called [facility] cab, 45 minute wait time, hospital to pay cab cost
== END 2018-10-26 12:12 | disposition home or self-care (01) ==
LOC: ER 10:36
DX: R53.1 Weakness (principal); J44.9 Chronic obstructive pulmonary disease, unspecified; E11.9 Type 2 diabetes mellitus without complications; Z90.49 Acquired absence of other specified parts of digestive tract; Z90.710 Acquired absence of both cervix and uterus; Z95.0 Presence of cardiac pacemaker; Z98.890 Other specified postprocedural states; Z60.2 Problems related to living alone; Z88.0 Allergy status to penicillin; Z88.2 Allergy status to sulfonamides; Z91.048 Other nonmedicinal substance allergy status; Z79.899 Other long term (current) drug therapy
CPT/HCPCS: 99283

== ENCOUNTER 2018-10-26 16:24 | Emergency (ER) | payer MEDICARE, MEDICAID ==
[~2018-10-26] VITALS: Ht 149.9 cm; Wt 48.2 kg
[2018-10-26 16:26] VITALS: BP 184/97
--- NOTE | 2018-10-26 17:39 | NUR ---
This is the second visit today. After speaking with case management, the recommendation from APS and social media marketing specialist is to taxi her to her home. A taxi was provided for the patient and when she arrived at home, she told the concrete mixing truck driver to take her back to the hospital because she was having chest pain. Upon arrival to the department, the concrete mixing truck driver stated they would no longer come and transport patient anywhere. Pt seen by Dr. Gonzales, EKG done and patient discharged. At this time, I am unable to contact social media marketing specialist or case management. Patient given sheet on Resources for displaced community members and assisted with making phone calls. Patient is presently sitting in the lobby, in no distress eating food that she had placed in the basket of her walker.
--- NOTE | 2018-10-26 19:00 | NUR ---
PT LOWERED SELF TO FLOOR THEN CALLED OUT TO REGISTRATION STAFF THAT SHE HAD FALLEN. STAFF ASSISTED PT BACK UP TO CHAIR.
--- NOTE | 2018-10-26 19:08 | NUR ---
INSTRUCTED PT TO QUIT HARRASSING ER REGISTRATION. SHE WAS OFFERED A BUS PASS AND REFUSED IT STATING SHE HAD "NO WHERE TO GO." SHE HAS BEEN GIVEN THE RIGHT TO STAY IN THE ER LOBBY TILL THE MORNING, BUT WITH THE CONDITION SHE DOES NOT CONTINUE TO BOTHER THE ER STAFF WHILE WORKING.
--- NOTE | 2018-10-26 20:51 | NUR ---
PT ASKED FOR CODE FOR BATHROOM AND LEFT A URINE TRAIL THROUGH LOBBY TO BATHROOM.
--- NOTE | 2018-10-26 22:56 | NUR ---
LEFT IN CAB WITH ANOTHER PERSON WHO WAS IN LOBBY USING [facility].
== END 2018-10-26 16:49 | disposition home or self-care (01) ==
LOC: ER 16:25
DX: R07.89 Other chest pain (principal); J44.9 Chronic obstructive pulmonary disease, unspecified; E11.9 Type 2 diabetes mellitus without complications; F17.210 Nicotine dependence, cigarettes, uncomplicated; Z90.49 Acquired absence of other specified parts of digestive tract; Z90.710 Acquired absence of both cervix and uterus; Z95.0 Presence of cardiac pacemaker; Z98.890 Other specified postprocedural states; Z60.2 Problems related to living alone; Z88.0 Allergy status to penicillin; Z88.2 Allergy status to sulfonamides; Z91.048 Other nonmedicinal substance allergy status; Z79.899 Other long term (current) drug therapy
CPT/HCPCS: 99283

== ENCOUNTER 2019-02-13 16:33 | Emergency (ER) | payer MEDICARE, MEDICAID ==
[~2019-02-13] VITALS: Ht 152.4 cm; Wt 48.2 kg
[2019-02-13 16:51] VITALS: BP 135/65
== END 2019-02-13 21:06 | disposition home or self-care (01) ==
LOC: ER 16:34
DX: F41.0 Panic disorder [episodic paroxysmal anxiety] (principal); F32.9 Major depressive disorder, single episode, unspecified; F03.90 Unspecified dementia, unspecified severity, without behavioral disturbance, psychotic disturbance, mood disturbance, and anxiety; J44.9 Chronic obstructive pulmonary disease, unspecified; E11.9 Type 2 diabetes mellitus without complications; Z90.710 Acquired absence of both cervix and uterus; Z95.0 Presence of cardiac pacemaker; Z88.0 Allergy status to penicillin; Z88.2 Allergy status to sulfonamides; Z88.8 Allergy status to other drugs, medicaments and biological substances
CPT/HCPCS: 99284

== ENCOUNTER 2019-04-29 09:24 | Emergency (ER) | payer MEDICARE, MEDICAID ==
[~2019-04-29] VITALS: Ht 149.9 cm; Wt 44.5 kg
[2019-04-29] MEDS ORDERED: ondansetron/PF 4mg/2ml inj IV ONE (09:35)
[2019-04-29] MEDS ORDERED: normal saline 1000ML IV soln IVB ONE (09:35)
[2019-04-29 09:59] LABS: BASOPHILS # (AUTO) 0.1 X10'3 (0-0.2); BASOPHILS % (AUTO) 1.2 % (0-1); EOSINOPHILS # (AUTO) 0.1 X10'3 (0-0.9); EOSINOPHILS % (AUTO) 1.5 % (0-6); HEMATOCRIT 38.3 % (35.0-45.0); HEMOGLOBIN 13.2 g/dl (12.0-16.0); LYMPHOCYTES # (AUTO) 1.1 X10'3 (1.1-4.8); LYMPHOCYTES % (AUTO) 16.9 % (21-51); MEAN CORPUSCULAR HEMOGLOBIN 30.3 PG (27.0-31.0); MEAN CORPUSCULAR HGB CONC 34.5 g/dL (33.0-36.5); MEAN CORPUSCULAR VOLUME 87.8 FL (78-98); MEAN PLATELET VOLUME 7.3 FL (7.4-10.4); MONOCYTES # (AUTO) 0.8 X10'3 (0-0.9); MONOCYTES % (AUTO) 11.4 % (2-12); NEUTROPHILS # (AUTO) 4.7 X10'3 (1.8-7.7); PLATELET COUNT 232 X10'3 (140-440); RED BLOOD COUNT 4.37 X10'6 (4.20-5.60); RED CELL DISTRIBUTION WIDTH 14.2 % (11.5-14.5); WHITE BLOOD COUNT 6.8 X10'3 (4.5-11.0)
[2019-04-29 10:11] LABS: ALANINE AMINOTRANSFERASE 14 U/L (12-78); ALBUMIN 3.8 G/DL (3.4-5.0); ALBUMIN/GLOBULIN RATIO 1.1 (1.1-1.5); ALKALINE PHOSPHATASE 82 IU/L (46-116); ANION GAP 6 (8-16); ASPARTATE AMINO TRANSFERASE 12 U/L (10-37); BILIRUBIN,TOTAL 0.6 MG/DL (0.1-1.0); BLOOD UREA NITROGEN 7 MG/DL (7-18); BUN/CREATININE RATIO 11.3 (6.6-38.0); CALCIUM 9.2 MG/DL (8.5-10.1); CHLORIDE 92 MMOL/L (99-107); CREATININE 0.62 MG/DL (0.40-0.90); GLUCOSE 178 MG/DL (70-104); POTASSIUM 4.1 MMOL/L (3.5-5.1); SODIUM 128 MMOL/L (135-145); TOTAL CARBON DIOXIDE 30.1 MMOL/L (24-32); TOTAL PROTEIN 7.2 G/DL (6.4-8.2); eGFR > 90 ML/MIN
[2019-04-29 10:15] LABS: TROPONIN I < 0.04 NG/ML (0.0-0.05)
--- NOTE | 2019-04-29 10:58 | NUR ---
REED PRESS FEEDER IS WORKING ON, MAKING PHONE CALLS IN ORDER TO GET PT BACK HOME. PT IS ASSISTED TO THE BSC TO VOID.
--- NOTE | 2019-04-29 11:11 | NUR ---
CHONG WITH COMMUNICATIONS OPERATOR STATES PT TO BE PICKED UP FOR TRANSPORT HOME [facility] TAXI BETWEEN [phone] AND TAXI WHEN THEY ARE ABOUT TO PICK PT UP. CHARGE NURSE ANUP GUERRERO.
[2019-04-29 12:06] VITALS: BP 116/54
--- NOTE | 2019-04-29 12:07 | NUR ---
PT REQUESTING TO WAIT OUT IN THE LOBBY. DC IV FROM RIGHT AC INTACT AND SITE CLEAR. ASSIST TO BSC TO VOID. PT AMB OUT TO LOBBY WITH WALKER TO WAIT FOR TAXI.
== END 2019-04-29 12:11 | disposition home or self-care (01) ==
LOC: ER 09:25
DX: J44.9 Chronic obstructive pulmonary disease, unspecified (principal); E87.1 Hypo-osmolality and hyponatremia; G31.84 Mild cognitive impairment of uncertain or unknown etiology; E11.9 Type 2 diabetes mellitus without complications; F17.200 Nicotine dependence, unspecified, uncomplicated; Z88.8 Allergy status to other drugs, medicaments and biological substances; Z79.899 Other long term (current) drug therapy; Z88.2 Allergy status to sulfonamides; Z90.710 Acquired absence of both cervix and uterus; Z95.0 Presence of cardiac pacemaker; Z98.890 Other specified postprocedural states; W18.39XA Other fall on same level, initial encounter; Y93.89 Activity, other specified; Y92.091 Bathroom in other non-institutional residence as the place of occurrence of the external cause; Y99.8 Other external cause status; Z88.0 Allergy status to penicillin
CPT/HCPCS: 36415; 71045; 80053; 84484; 85025; 96374; 99284; J2405; J7030

== ENCOUNTER 2019-06-12 16:56 | Emergency (ER) | payer MEDICARE, MEDICAID ==
[~2019-06-12] VITALS: Ht 149.9 cm; Wt 45.0 kg
[2019-06-12 17:24] LABS: BASOPHILS % (AUTO) 0.6 % (0-1); EOSINOPHILS # (AUTO) 0.2 X10'3 (0-0.9); HEMATOCRIT 37.6 % (35.0-45.0); LYMPHOCYTES # (AUTO) 2.4 X10'3 (1.1-4.8); LYMPHOCYTES % (AUTO) 32.3 % (21-51); MEAN CORPUSCULAR HEMOGLOBIN 30.4 PG (27.0-31.0); MEAN CORPUSCULAR HGB CONC 34.5 g/dL (33.0-36.5); MEAN CORPUSCULAR VOLUME 88.2 FL (78-98); MEAN PLATELET VOLUME 7.2 FL (7.4-10.4); MONOCYTES # (AUTO) 0.5 X10'3 (0-0.9); NEUTROPHILS # (AUTO) 4.3 X10'3 (1.8-7.7); NEUTROPHILS % (AUTO) 58.1 % (42-75); PLATELET COUNT 271 X10'3 (140-440); RED BLOOD COUNT 4.26 X10'6 (4.20-5.60); RED CELL DISTRIBUTION WIDTH 14.4 % (11.5-14.5); WHITE BLOOD COUNT 7.4 X10'3 (4.5-11.0)
[2019-06-12 17:35] LABS: PARTIAL THROMBOPLASTIN TIME 34 SECONDS (22-32)
[2019-06-12 17:37] LABS: ALANINE AMINOTRANSFERASE 18 U/L (12-78); ALBUMIN/GLOBULIN RATIO 1.1 (1.1-1.5); ALKALINE PHOSPHATASE 88 IU/L (46-116); ANION GAP 8 (8-16); ASPARTATE AMINO TRANSFERASE 19 U/L (10-37); BILIRUBIN,TOTAL 0.2 MG/DL (0.1-1.0); BLOOD UREA NITROGEN 1 MG/DL (7-18); BUN/CREATININE RATIO 2.1 (6.6-38.0); CALCIUM 8.3 MG/DL (8.5-10.1); CHLORIDE 93 MMOL/L (99-107); CREATININE 0.48 MG/DL (0.40-0.90); GLUCOSE 95 MG/DL (70-104); POTASSIUM 3.9 MMOL/L (3.5-5.1); SODIUM 128 MMOL/L (135-145); TOTAL PROTEIN 7.5 G/DL (6.4-8.2); eGFR > 90 ML/MIN
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
[2019-06-12 20:28] VITALS: BP 168/84
== END 2019-06-12 20:30 | disposition home or self-care (01) ==
LOC: ER 16:56
DX: T82.897A Other specified complication of cardiac prosthetic devices, implants and grafts, initial encounter (principal); R00.2 Palpitations; F03.90 Unspecified dementia, unspecified severity, without behavioral disturbance, psychotic disturbance, mood disturbance, and anxiety; J44.9 Chronic obstructive pulmonary disease, unspecified; E11.9 Type 2 diabetes mellitus without complications; F17.210 Nicotine dependence, cigarettes, uncomplicated; Z90.49 Acquired absence of other specified parts of digestive tract; Z90.710 Acquired absence of both cervix and uterus; Z95.0 Presence of cardiac pacemaker; Z98.890 Other specified postprocedural states; Z88.8 Allergy status to other drugs, medicaments and biological substances; Z88.0 Allergy status to penicillin; Z88.2 Allergy status to sulfonamides; Z79.899 Other long term (current) drug therapy; Y84.0 Cardiac catheterization as the cause of abnormal reaction of the patient, or of later complication, without mention of misadventure at the time of the procedure; Y92.89 Other specified places as the place of occurrence of the external cause
CPT/HCPCS: 36415; 71045; 80053; 84484; 85025; 85610; 85730; 93005; 99284

== ENCOUNTER 2019-06-15 04:56 | Emergency (ER) | payer MEDICARE, MEDICAID ==
[~2019-06-15] VITALS: Ht 154.9 cm; Wt 47.7 kg
[2019-06-15 06:00] VITALS: BP 136/58
[2019-06-15] MEDS ORDERED: aspirin 81mg tab.chew PO ONE (06:05)
[2019-06-15 06:37] LABS: BASOPHILS # (AUTO) 0.1 X10'3 (0-0.2); BASOPHILS % (AUTO) 1.4 % (0-1); EOSINOPHILS # (AUTO) 0.2 X10'3 (0-0.9); EOSINOPHILS % (AUTO) 2.6 % (0-6); HEMATOCRIT 36.1 % (35.0-45.0); HEMOGLOBIN 12.2 g/dl (12.0-16.0); LYMPHOCYTES # (AUTO) 1.6 X10'3 (1.1-4.8); LYMPHOCYTES % (AUTO) 20.2 % (21-51); MEAN CORPUSCULAR HGB CONC 33.6 g/dL (33.0-36.5); MEAN CORPUSCULAR VOLUME 89.2 FL (78-98); MEAN PLATELET VOLUME 7.6 FL (7.4-10.4); MONOCYTES # (AUTO) 0.7 X10'3 (0-0.9); MONOCYTES % (AUTO) 8.5 % (2-12); NEUTROPHILS # (AUTO) 5.5 X10'3 (1.8-7.7); NEUTROPHILS % (AUTO) 67.3 % (42-75); PLATELET COUNT 262 X10'3 (140-440); RED BLOOD COUNT 4.05 X10'6 (4.20-5.60); RED CELL DISTRIBUTION WIDTH 14.3 % (11.5-14.5); WHITE BLOOD COUNT 8.2 X10'3 (4.5-11.0)
[2019-06-15 06:47] LABS: ALANINE AMINOTRANSFERASE 14 U/L (12-78); ALBUMIN 3.5 G/DL (3.4-5.0); ALBUMIN/GLOBULIN RATIO 1.1 (1.1-1.5); ALKALINE PHOSPHATASE 80 IU/L (46-116); ANION GAP 7 (8-16); ASPARTATE AMINO TRANSFERASE 16 U/L (10-37); BILIRUBIN,TOTAL 0.5 MG/DL (0.1-1.0); BLOOD UREA NITROGEN 4 MG/DL (7-18); BUN/CREATININE RATIO 9.5 (6.6-38.0); CALCIUM 8.5 MG/DL (8.5-10.1); CHLORIDE 100 MMOL/L (99-107); CREATININE 0.42 MG/DL (0.40-0.90); GLUCOSE 96 MG/DL (70-104); POTASSIUM 3.8 MMOL/L (3.5-5.1); SODIUM 136 MMOL/L (135-145); TOTAL CARBON DIOXIDE 28.8 MMOL/L (24-32); TOTAL PROTEIN 6.7 G/DL (6.4-8.2); eGFR > 90 ML/MIN
--- NOTE | 2019-06-15 06:50 | NUR ---
Pt. states she wants to leave and to call her a taxi and then turns around and states she wants to stay. Pt. anxious, A & O. Charge nurse aware of pt. inconsistencies re. staying and being treated and wanting to leave.
[2019-06-15 06:56] LABS: MAGNESIUM 1.9 MG/DL (1.5-2.4)
--- NOTE | 2019-06-15 07:07 | NUR ---
Pt. requested to leave. PIV taken out. Attemtped to call pt's son multiple times. Will call taxi cab for pt. Will call case management once they get here.
== END 2019-06-15 07:10 | disposition left against medical advice (07) ==
LOC: ER 04:57
DX: R07.89 Other chest pain (principal); F03.90 Unspecified dementia, unspecified severity, without behavioral disturbance, psychotic disturbance, mood disturbance, and anxiety; J44.9 Chronic obstructive pulmonary disease, unspecified; E11.9 Type 2 diabetes mellitus without complications; F17.200 Nicotine dependence, unspecified, uncomplicated; Z90.49 Acquired absence of other specified parts of digestive tract; Z90.710 Acquired absence of both cervix and uterus; Z95.0 Presence of cardiac pacemaker; Z98.890 Other specified postprocedural states; Z88.8 Allergy status to other drugs, medicaments and biological substances; Z88.0 Allergy status to penicillin; Z88.2 Allergy status to sulfonamides; Z79.899 Other long term (current) drug therapy
CPT/HCPCS: 36415; 71045; 80053; 83735; 83880; 84484; 85025; 93005; 99284

== ENCOUNTER 2019-06-22 13:36 | Emergency (ER) | payer MEDICARE, MEDICAID ==
[~2019-06-22] VITALS: Ht 149.9 cm; Wt 46.0 kg
[2019-06-22 13:51] VITALS: BP 160/73
--- NOTE | 2019-06-22 14:45 | NUR ---
pt states she has had issues with her pacemaker. EKG ordered to verify rhythm.
== END 2019-06-22 15:12 | disposition home or self-care (01) ==
LOC: ER 13:37
DX: R00.2 Palpitations (principal); R11.0 Nausea; F41.9 Anxiety disorder, unspecified; F03.90 Unspecified dementia, unspecified severity, without behavioral disturbance, psychotic disturbance, mood disturbance, and anxiety; J44.9 Chronic obstructive pulmonary disease, unspecified; E11.9 Type 2 diabetes mellitus without complications; Z88.0 Allergy status to penicillin; Z88.2 Allergy status to sulfonamides; Z79.899 Other long term (current) drug therapy; Z90.49 Acquired absence of other specified parts of digestive tract; Z90.710 Acquired absence of both cervix and uterus; Z90.89 Acquired absence of other organs; Z95.0 Presence of cardiac pacemaker; Z86.79 Personal history of other diseases of the circulatory system; Z87.01 Personal history of pneumonia (recurrent); Z90.721 Acquired absence of ovaries, unilateral; Z60.2 Problems related to living alone
CPT/HCPCS: 93005; 99284

== ENCOUNTER 2019-08-15 15:16 | Emergency (ER) | payer MEDICARE, MEDICAID ==
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
== END 2019-08-15 15:53 | disposition left against medical advice (07) ==
LOC: ER 15:17
DX: M25.569 Pain in unspecified knee (principal); Z53.21 Procedure and treatment not carried out due to patient leaving prior to being seen by health care provider

== ENCOUNTER 2019-08-18 10:46 | Emergency (ER) | payer MEDICARE, MEDICAID ==
[~2019-08-18] VITALS: Ht 149.9 cm; Wt 43.2 kg
[2019-08-18 11:14] VITALS: BP 135/62
== END 2019-08-18 11:16 | disposition left against medical advice (07) ==
LOC: ER 10:48
DX: R00.2 Palpitations (principal); F41.9 Anxiety disorder, unspecified; J44.9 Chronic obstructive pulmonary disease, unspecified; E11.9 Type 2 diabetes mellitus without complications; F03.90 Unspecified dementia, unspecified severity, without behavioral disturbance, psychotic disturbance, mood disturbance, and anxiety; Z90.710 Acquired absence of both cervix and uterus; Z95.0 Presence of cardiac pacemaker; Z98.890 Other specified postprocedural states; Z88.0 Allergy status to penicillin; Z88.8 Allergy status to other drugs, medicaments and biological substances; Z79.899 Other long term (current) drug therapy
CPT/HCPCS: 93005; 99283

== ENCOUNTER 2019-08-25 11:29 | Emergency (ER) | payer MEDICARE, MEDICAID ==
[~2019-08-25] VITALS: Ht 149.9 cm; Wt 50.0 kg
--- NOTE | 2019-08-25 11:53 | NUR ---
Not in lobby. Pt is outside smoking.
[2019-08-25 12:18] VITALS: BP 154/76
== END 2019-08-25 14:37 | disposition left against medical advice (07) ==
LOC: ER 11:29
DX: F41.9 Anxiety disorder, unspecified (principal); R07.9 Chest pain, unspecified; F17.200 Nicotine dependence, unspecified, uncomplicated
CPT/HCPCS: 93005

== ENCOUNTER 2019-11-26 08:44 | Emergency (ER) | payer MEDICARE, MEDICAID ==
[~2019-11-26] VITALS: Ht 149.9 cm; Wt 45.0 kg
[2019-11-26 09:10] VITALS: BP 148/80
== END 2019-11-26 10:01 | disposition left against medical advice (07) ==
LOC: ER 08:44
DX: R10.2 Pelvic and perineal pain (principal); Z53.21 Procedure and treatment not carried out due to patient leaving prior to being seen by health care provider

== ENCOUNTER 2019-12-25 02:35 | Emergency (ER) | payer MEDICARE, MEDICAID ==
[~2019-12-25] VITALS: Ht 149.9 cm; Wt 50.0 kg
--- NOTE | 2019-12-25 06:08 | NUR ---
Patient up to a standing position with assistance and a walker. Patient able to take several steps but complains about the hospital walker and states, "I could walk with my fuckin' walker. This thing is a piece of shit." Patient's son Wil contacted who states he will stop by with it on his way to work within an hour.
[2019-12-25 06:09] VITALS: BP 137/67
[2019-12-26] MEDS ORDERED: HYDR-3965 PO (11:59)
[2019-12-26] MEDS ORDERED: ONDA4TAB6 PO (11:59)
== END 2019-12-25 07:18 | disposition home or self-care (01) ==
LOC: ER 02:35
DX: S32.502A Unspecified fracture of left pubis, initial encounter for closed fracture (principal); F03.90 Unspecified dementia, unspecified severity, without behavioral disturbance, psychotic disturbance, mood disturbance, and anxiety; J44.9 Chronic obstructive pulmonary disease, unspecified; E11.9 Type 2 diabetes mellitus without complications; F10.21 Alcohol dependence, in remission; Z90.710 Acquired absence of both cervix and uterus; Z90.89 Acquired absence of other organs; Z95.0 Presence of cardiac pacemaker; Z98.890 Other specified postprocedural states; Z60.2 Problems related to living alone; Z88.0 Allergy status to penicillin; Z88.2 Allergy status to sulfonamides; Z79.899 Other long term (current) drug therapy; W18.39XA Other fall on same level, initial encounter; Z91.81 History of falling; Y93.89 Activity, other specified; Y92.59 Other trade areas as the place of occurrence of the external cause
CPT/HCPCS: 70450; 72192; 73502; 93005; 99285

== ENCOUNTER 2019-12-26 11:16 | Emergency (ER) | payer MEDICARE, MEDICAID ==
[~2019-12-26] VITALS: Ht 149.9 cm; Wt 40.9 kg
[2019-12-26] MEDS ORDERED: ONDA4TAB6 PO (11:59)
[2019-12-26] MEDS ORDERED: HYDR-3965 PO (11:59)
[2019-12-26] MEDS ORDERED: ondansetron 4mg rapidly disintigrating tab PO ONE (12:00)
[2019-12-26] MEDS ORDERED: HYDROcodone/acetaminophen 10/325mg tab PO ONE (12:00)
[2019-12-26 12:29] VITALS: BP 130/49
== END 2019-12-26 12:32 | disposition home or self-care (01) ==
LOC: ER 11:16
DX: S32.592D Other specified fracture of left pubis, subsequent encounter for fracture with routine healing (principal); J44.9 Chronic obstructive pulmonary disease, unspecified; E11.9 Type 2 diabetes mellitus without complications; F03.90 Unspecified dementia, unspecified severity, without behavioral disturbance, psychotic disturbance, mood disturbance, and anxiety; Z90.49 Acquired absence of other specified parts of digestive tract; Z90.710 Acquired absence of both cervix and uterus; Z95.0 Presence of cardiac pacemaker; Z90.89 Acquired absence of other organs; Z72.89 Other problems related to lifestyle; Z88.0 Allergy status to penicillin; Z88.2 Allergy status to sulfonamides; Z91.041 Radiographic dye allergy status; Z79.899 Other long term (current) drug therapy; W18.39XD Other fall on same level, subsequent encounter
CPT/HCPCS: 99284

== ENCOUNTER 2019-12-29 10:14 | Observation (INO) | payer MEDICARE, MEDICAID ==
[~2019-12-29] VITALS: Ht 149.9 cm; Wt 40.9 kg
[~2019-12-29 10:14] MED LIST changes: +HYDR-3965 PO; +ONDA4TAB6 PO
[2019-12-29] MEDS ORDERED: HYDROcodone/acetaminophen 5mg/325mg tablet PO ONE (16:15)
[2019-12-29 16:28] LABS: BASOPHILS # (AUTO) 0.1 X10'3 (0-0.2); BASOPHILS % (AUTO) 0.8 % (0-1); EOSINOPHILS # (AUTO) 0.1 X10'3 (0-0.9); EOSINOPHILS % (AUTO) 1.2 % (0-6); HEMATOCRIT 37.9 % (35.0-45.0); HEMOGLOBIN 12.8 g/dl (12.0-16.0); MEAN CORPUSCULAR HEMOGLOBIN 28.6 PG (27.0-31.0); MEAN CORPUSCULAR HGB CONC 33.9 g/dL (33.0-36.5); MEAN CORPUSCULAR VOLUME 84.6 FL (78-98); MEAN PLATELET VOLUME 7.5 FL (7.4-10.4); MONOCYTES # (AUTO) 1.1 X10'3 (0-0.9); MONOCYTES % (AUTO) 13.5 % (2-12); NEUTROPHILS % (AUTO) 72.5 % (42-75); PLATELET COUNT 229 X10'3 (140-440); RED BLOOD COUNT 4.48 X10'6 (4.20-5.60); RED CELL DISTRIBUTION WIDTH 15.7 % (11.5-14.5); WHITE BLOOD COUNT 8.3 X10'3 (4.5-11.0)
[2019-12-29] MEDS ORDERED: CARV3.122 PO (16:34)
[2019-12-29] MEDS ORDERED: METF-950 PO (16:34)
[2019-12-29 16:42] LABS: ALANINE AMINOTRANSFERASE 16 U/L (12-78); ALBUMIN 3.4 G/DL (3.4-5.0); ALBUMIN/GLOBULIN RATIO 0.9 (1.1-1.5); ALKALINE PHOSPHATASE 84 IU/L (46-116); ANION GAP 3 (8-16); ASPARTATE AMINO TRANSFERASE 30 U/L (10-37); BILIRUBIN,TOTAL 1.2 MG/DL (0.1-1.0); BLOOD UREA NITROGEN 5 MG/DL (7-18); BUN/CREATININE RATIO 8.3 (6.6-38.0); CALCIUM 8.5 MG/DL (8.5-10.1); CHLORIDE 90 MMOL/L (99-107); GLUCOSE 116 MG/DL (70-104); POTASSIUM 3.9 MMOL/L (3.5-5.1); SODIUM 126 MMOL/L (135-145); TOTAL CARBON DIOXIDE 33.2 MMOL/L (24-32); TOTAL PROTEIN 7.3 G/DL (6.4-8.2); eGFR > 90 ML/MIN
[2019-12-29] MEDS ORDERED: morphine 2 MG/ML inj. syringe IV PRN ×2 (17:20)
[2019-12-29] MEDS ORDERED: MESSAGE TO PHARMACY PO ONE (17:20)
[2019-12-29] MEDS ORDERED: insulin Lispro (HumaLOG) vial - multi-dose SQ SCH (17:20)
[2019-12-29] MEDS ORDERED: ondansetron/PF 4mg/2ml inj IV PRN (17:20)
[2019-12-29] MEDS ORDERED: glucagon, human recombinant 1mg kit SUBCUT PRN (17:20)
[2019-12-29] MEDS ORDERED: mag hydrox/Alum hydrox/simeth 30ml oral suspension PO PRN (17:20)
[2019-12-29] MEDS ORDERED: dextrose ORAL solution 15 GM/59 ML bottle PO PRN ×2 (17:20)
[2019-12-29] MEDS ORDERED: dextrose 50%-water 50ml dispensing syringe IV PRN ×2 (17:20)
[2019-12-29] MEDS ORDERED: non-formulary drug (Albuterol Sulfate (Ventolin Hfa) 2 PUFFS) INH SCH (17:20)
[2019-12-29] MEDS ORDERED: magnesium hydroxide 30ml (MOM) UD suspension PO PRN (17:20)
[2019-12-29] MEDS ORDERED: acetaminophen 325mg tablet PO PRN ×2 (17:20)
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
[2019-12-29 17:51] LABS: HEMOGLOBIN A1C 5.4 % (4.5-6.2)
[2019-12-29] MEDS ORDERED: albuterol 2.5 MG/3 ML nebule NEB PRN (17:54)
[2019-12-29] MEDS ORDERED: normal saline 1000ML IV soln IVB ONE (18:00)
[2019-12-29] MEDS ORDERED: LORazepam 2 mg/ml vial IV ONE (18:05)
--- NOTE | 2019-12-29 18:39 | NUR ---
CONTACT INFO: CATHI DESHPANDE) [phone]
[2019-12-29] MEDS: carVEDilol 3.125mg tablet PO SCH (19:32)
[2019-12-29] MEDS ORDERED: metFORMIN 500mg tablet PO SCH (20:00)
--- NOTE | 2019-12-29 20:15 | NUR ---
Received patient report from CAESAR Mendes in ED.
[2019-12-29 20:25] VITALS: BP 127/43
[2019-12-29] MEDS ORDERED: insulin glargine (Lantus) pen - multi-dose SQ SCH (21:00)
[2019-12-29 22:00] VITALS: BP 117/53
[2019-12-30] MEDS: HYDROcodone/acetaminophen 10/325mg tab PO PRN ×2 (01:51→06:37)
[2019-12-30 06:00] VITALS: BP 120/48
--- NOTE | 2019-12-30 06:33 | NUR ---
Patient report given, questions answered and plan of care reviewed with CAESAR Jacob.
[2019-12-30 07:52] LABS: ALBUMIN 2.9 G/DL (3.4-5.0); ANION GAP 5 (8-16); BASOPHILS # (AUTO) 0.1 X10'3 (0-0.2); BASOPHILS % (AUTO) 1.1 % (0-1); BLOOD UREA NITROGEN 6 MG/DL (7-18); BUN/CREATININE RATIO 11.5 (6.6-38.0); CALCIUM 8.3 MG/DL (8.5-10.1); CHLORIDE 96 MMOL/L (99-107); CREATININE 0.52 MG/DL (0.40-0.90); EOSINOPHILS # (AUTO) 0.2 X10'3 (0-0.9); EOSINOPHILS % (AUTO) 3.1 % (0-6); GLUCOSE 108 MG/DL (70-104); HEMATOCRIT 33.2 % (35.0-45.0); HEMOGLOBIN 11.6 g/dl (12.0-16.0); LYMPHOCYTES # (AUTO) 1.1 X10'3 (1.1-4.8); LYMPHOCYTES % (AUTO) 15.3 % (21-51); MEAN CORPUSCULAR HEMOGLOBIN 29.5 PG (27.0-31.0); MEAN CORPUSCULAR HGB CONC 35.1 g/dL (33.0-36.5); MEAN CORPUSCULAR VOLUME 83.9 FL (78-98); MEAN PLATELET VOLUME 7.8 FL (7.4-10.4); MONOCYTES # (AUTO) 1.2 X10'3 (0-0.9); MONOCYTES % (AUTO) 16.9 % (2-12); NEUTROPHILS # (AUTO) 4.7 X10'3 (1.8-7.7); NEUTROPHILS % (AUTO) 63.6 % (42-75); PLATELET COUNT 208 X10'3 (140-440); POTASSIUM 3.7 MMOL/L (3.5-5.1); RED BLOOD COUNT 3.95 X10'6 (4.20-5.60); SODIUM 131 MMOL/L (135-145); TOTAL CARBON DIOXIDE 30.1 MMOL/L (24-32); WHITE BLOOD COUNT 7.4 X10'3 (4.5-11.0); eGFR > 90 ML/MIN
[2019-12-30] MEDS ORDERED: enoxaparin 40mg/0.4ml syringe SUBCUT SCH (08:00)
--- NOTE | 2019-12-30 08:37 | NUR ---
Counted money with patient and Nidia RN. Counted $360 in bills and noted some quarters as well (approx. 5-8). Patient refused to put money in safe.
[2019-12-30 10:00] VITALS: BP 111/32
--- NOTE | 2019-12-30 10:00 | NUR ---
PAGER ID: [phone] MESSAGE: [phone] Shefali Garcia What is the weight bearing status you want for PT eval? Nidia
[2019-12-30] MEDS: carVEDilol 3.125mg tablet PO SCH (10:10)
[2019-12-30] MEDS: HYDROcodone/acetaminophen 5mg/325mg tablet PO PRN ×2 (13:05→17:12)
[2019-12-30 13:23] LABS: CLARITY,URINE CLEAR (Clear); COLOR,URINE YELLOW (Yellow); GLUCOSE, URINE NEGATIVE (Neg); KETONES,URINE NEGATIVE (Neg); LEUKOCYTE ESTERASE ,URINE TRACE (Neg); NITRITES, URINE NEGATIVE (Neg); OCCULT BLOOD,URINE MODERATE (Neg); PROTEIN,URINE NEGATIVE (Neg)
[2019-12-30 13:47] LABS: UA COLLECTION TYPE CLN CATCH MIDSTREAM
[2019-12-30 13:49] LABS: BACTERIA,URINE FEW /HPF (Neg); MUCUS STRANDS NONE SEEN /LPF (Neg); SQUAMOUS EPITHELIAL CELL,UR FEW /LPF (FEW); WBC,URINE 0-4 /HPF (0-4)
--- NOTE | 2019-12-30 15:42 | NUR ---
PAGER ID: [phone] MESSAGE: [phone] Shefali Garcia PT worked with patient, she walked 200ft and keep says she is going to go. Nidia [phone]
--- NOTE | 2019-12-30 16:18 | NUR ---
Hourly Rounding, I have been in and out of the room more than our hourly rounding is asking. Along with other staff due to the patient yelling, frequent urination and using the call be.
--- NOTE | 2019-12-30 17:25 | NUR ---
PATIENT STATING ALL DAY SHE KNEW HER RIGHTS AND WANTED "TO GO HOME". PATIENT IS CURRENTLY BEING DISCHARGED, AND NOW REFUSING STATING "WHERE AM I GOING TO GO?". FRIEND NORMAN CAME BACK INTO THE ROOM, AND HAS ASKED FOR A MOMENT "TO TALK WITH PATIENT".
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
[2019-12-30 18:00] VITALS: BP 159/50
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
--- NOTE | 2020-01-01 13:47 | NUR ---
Case management DC follow up: Called phone number attached to pt name: son, Wil Tay answered phone.(denies phone number attached to his name is his number) reports he thought his mother/pt was at hospital, and stated she is probably w/person who acts as a "pump press operator" to pt, Laina Christiansen/VIVI/KIM to number to call back for post DC status, or if any questions or concerns.
== END 2019-12-30 17:55 | disposition home or self-care (01) ==
LOC: ER 10:14 → ED HOLD 17:18 → ORTHO 4S 20:15
PROVIDERS: ADMIT Internal Medicine; ATTEND Internal Medicine
DX: S32.592D Other specified fracture of left pubis, subsequent encounter for fracture with routine healing (principal); E87.1 Hypo-osmolality and hyponatremia; I49.5 Sick sinus syndrome; E11.9 Type 2 diabetes mellitus without complications; I10 Essential (primary) hypertension; J44.9 Chronic obstructive pulmonary disease, unspecified; F03.90 Unspecified dementia, unspecified severity, without behavioral disturbance, psychotic disturbance, mood disturbance, and anxiety; R62.7 Adult failure to thrive; F10.20 Alcohol dependence, uncomplicated; F17.200 Nicotine dependence, unspecified, uncomplicated; Z90.49 Acquired absence of other specified parts of digestive tract; Z90.710 Acquired absence of both cervix and uterus; Z90.89 Acquired absence of other organs; Z95.0 Presence of cardiac pacemaker; Z90.722 Acquired absence of ovaries, bilateral; Z79.84 Long term (current) use of oral hypoglycemic drugs; Z79.899 Other long term (current) drug therapy; Z88.0 Allergy status to penicillin; Z88.2 Allergy status to sulfonamides; Z91.048 Other nonmedicinal substance allergy status; Y93.89 Activity, other specified; Y92.89 Other specified places as the place of occurrence of the external cause
CPT/HCPCS: 36415; 72170; 80048; 80053; 81001; 82948; 83036; 83880; 85025; 87081; 87088; 96372; 96374; 97116; 97161; 97530; 99284; G0378; J1815; J2060; J7030; J1650

== ENCOUNTER 2020-01-11 08:26 | Emergency (ER) | payer MEDICARE, MEDICAID ==
[~2020-01-11] VITALS: Ht 170.2 cm; Wt 55.0 kg
[~2020-01-11 08:26] MED LIST changes: +CARV3.122 PO; -HYDR-3965 PO; -ONDA4TAB6 PO; -PANT20TA3 PO; -TIOT4MIS5 IH
[2020-01-11 09:42] LABS: BASOPHILS # (AUTO) 0.2 X10'3 (0-0.2); BASOPHILS % (AUTO) 1.9 % (0-1); EOSINOPHILS # (AUTO) 0.1 X10'3 (0-0.9); EOSINOPHILS % (AUTO) 1.6 % (0-6); HEMATOCRIT 36.4 % (35.0-45.0); HEMOGLOBIN 12.7 g/dl (12.0-16.0); LYMPHOCYTES # (AUTO) 1.2 X10'3 (1.1-4.8); LYMPHOCYTES % (AUTO) 14.3 % (21-51); MEAN CORPUSCULAR HEMOGLOBIN 29.5 PG (27.0-31.0); MEAN CORPUSCULAR VOLUME 84.2 FL (78-98); MEAN PLATELET VOLUME 7.1 FL (7.4-10.4); MONOCYTES # (AUTO) 0.8 X10'3 (0-0.9); MONOCYTES % (AUTO) 9.3 % (2-12); NEUTROPHILS # (AUTO) 6.2 X10'3 (1.8-7.7); NEUTROPHILS % (AUTO) 72.9 % (42-75); PLATELET COUNT 406 X10'3 (140-440); RED BLOOD COUNT 4.32 X10'6 (4.20-5.60); RED CELL DISTRIBUTION WIDTH 16.1 % (11.5-14.5); WHITE BLOOD COUNT 8.5 X10'3 (4.5-11.0)
[2020-01-11 09:49] LABS: ALANINE AMINOTRANSFERASE 9 U/L (12-78); ALBUMIN 3.6 G/DL (3.4-5.0); ALBUMIN/GLOBULIN RATIO 0.9 (1.1-1.5); ALKALINE PHOSPHATASE 157 IU/L (46-116); ANION GAP 8 (8-16); ASPARTATE AMINO TRANSFERASE 23 U/L (10-37); BILIRUBIN,TOTAL 0.6 MG/DL (0.1-1.0); BLOOD UREA NITROGEN 5 MG/DL (7-18); BUN/CREATININE RATIO 8.9 (6.6-38.0); CALCIUM 8.8 MG/DL (8.5-10.1); CHLORIDE 95 MMOL/L (99-107); CREATININE 0.56 MG/DL (0.40-0.90); GLUCOSE 111 MG/DL (70-104); POTASSIUM 3.1 MMOL/L (3.5-5.1); SODIUM 132 MMOL/L (135-145); TOTAL PROTEIN 7.6 G/DL (6.4-8.2); eGFR > 90 ML/MIN
--- NOTE | 2020-01-11 10:08 | NUR ---
pictures taken of pressure ulcer on coccyx. pressure dressing foam pad placed over wound
[2020-01-11] MEDS ORDERED: furosemide 40mg/4ml inj IV ONE (10:15)
--- NOTE | 2020-01-11 12:36 | NUR ---
Taken over care. Report from Roberta.
[2020-01-11 13:37] VITALS: BP 149/67
== END 2020-01-11 13:41 | disposition home or self-care (01) ==
LOC: ER 08:26
DX: I50.9 Heart failure, unspecified (principal); L89.152 Pressure ulcer of sacral region, stage 2; F03.90 Unspecified dementia, unspecified severity, without behavioral disturbance, psychotic disturbance, mood disturbance, and anxiety; I25.10 Atherosclerotic heart disease of native coronary artery without angina pectoris; I25.2 Old myocardial infarction; J44.9 Chronic obstructive pulmonary disease, unspecified; E11.9 Type 2 diabetes mellitus without complications; F17.200 Nicotine dependence, unspecified, uncomplicated; Z90.49 Acquired absence of other specified parts of digestive tract; Z90.710 Acquired absence of both cervix and uterus; Z95.0 Presence of cardiac pacemaker; Z98.890 Other specified postprocedural states; Z60.2 Problems related to living alone; Z88.0 Allergy status to penicillin; Z88.2 Allergy status to sulfonamides; Z88.5 Allergy status to narcotic agent; Z91.048 Other nonmedicinal substance allergy status; Z79.899 Other long term (current) drug therapy
CPT/HCPCS: 36415; 71045; 80053; 83880; 84484; 85025; 93005; 96374; 99285; J1940

== ENCOUNTER 2020-02-24 09:10 | Outpatient (CLI) | payer MEDICARE, MEDICAID ==
[2020-02-24] MEDS ORDERED: LIDOcaine 2% 5ml jelly ONE (09:42)
== END 2020-02-24 10:15 | disposition home or self-care (01) ==
LOC: WOUND CARE 09:10
PROVIDERS: ATTEND Nurse Practitioner Family
DX: E11.622 Type 2 diabetes mellitus with other skin ulcer (principal); L89.152 Pressure ulcer of sacral region, stage 2; L98.491 Non-pressure chronic ulcer of skin of other sites limited to breakdown of skin; E11.65 Type 2 diabetes mellitus with hyperglycemia; E78.5 Hyperlipidemia, unspecified; K21.9 Gastro-esophageal reflux disease without esophagitis; J44.9 Chronic obstructive pulmonary disease, unspecified; I11.0 Hypertensive heart disease with heart failure; I50.9 Heart failure, unspecified; I25.10 Atherosclerotic heart disease of native coronary artery without angina pectoris; I25.2 Old myocardial infarction; E87.1 Hypo-osmolality and hyponatremia; F17.210 Nicotine dependence, cigarettes, uncomplicated; F03.90 Unspecified dementia, unspecified severity, without behavioral disturbance, psychotic disturbance, mood disturbance, and anxiety; Z79.899 Other long term (current) drug therapy; Z85.42 Personal history of malignant neoplasm of other parts of uterus; Z90.49 Acquired absence of other specified parts of digestive tract; Z90.710 Acquired absence of both cervix and uterus; Z98.890 Other specified postprocedural states; Z95.0 Presence of cardiac pacemaker; Z71.6 Tobacco abuse counseling; Z90.89 Acquired absence of other organs; Z90.722 Acquired absence of ovaries, bilateral; Z79.84 Long term (current) use of oral hypoglycemic drugs
CPT/HCPCS: 36416; 82948; G0463

== ENCOUNTER 2020-03-02 10:22 | Day surgery (SDC) | payer MEDICARE, MEDICAID | END 2020-03-02 11:19 | disposition home or self-care (01) | LOC: WOUND CARE 10:22 | PROVIDERS: ATTEND Nurse Practitioner Family | DX: E11.622 Type 2 diabetes mellitus with other skin ulcer (principal); L89.152 Pressure ulcer of sacral region, stage 2; L98.491 Non-pressure chronic ulcer of skin of other sites limited to breakdown of skin; E11.65 Type 2 diabetes mellitus with hyperglycemia; E78.5 Hyperlipidemia, unspecified; K21.9 Gastro-esophageal reflux disease without esophagitis; J44.9 Chronic obstructive pulmonary disease, unspecified; I11.0 Hypertensive heart disease with heart failure; I50.9 Heart failure, unspecified; I25.10 Atherosclerotic heart disease of native coronary artery without angina pectoris; I25.2 Old myocardial infarction; E87.1 Hypo-osmolality and hyponatremia; F17.210 Nicotine dependence, cigarettes, uncomplicated; F03.90 Unspecified dementia, unspecified severity, without behavioral disturbance, psychotic disturbance, mood disturbance, and anxiety; Z79.899 Other long term (current) drug therapy; Z85.42 Personal history of malignant neoplasm of other parts of uterus; Z90.49 Acquired absence of other specified parts of digestive tract; Z90.710 Acquired absence of both cervix and uterus; Z98.890 Other specified postprocedural states; Z95.0 Presence of cardiac pacemaker; Z71.6 Tobacco abuse counseling; Z90.89 Acquired absence of other organs; Z90.722 Acquired absence of ovaries, bilateral; Z79.84 Long term (current) use of oral hypoglycemic drugs | CPT/HCPCS: 97597 ==

== ENCOUNTER 2020-03-12 08:57 | Day surgery (SDC) | payer MEDICARE, MEDICAID ==
[2020-03-12] MEDS ORDERED: LIDOcaine 2% 5ml jelly ONE (09:12)
== END 2020-03-12 09:35 | disposition home or self-care (01) ==
LOC: WOUND CARE 08:57
PROVIDERS: ATTEND Nurse Practitioner
DX: E11.622 Type 2 diabetes mellitus with other skin ulcer (principal); L89.152 Pressure ulcer of sacral region, stage 2; L98.491 Non-pressure chronic ulcer of skin of other sites limited to breakdown of skin; E11.65 Type 2 diabetes mellitus with hyperglycemia; I11.0 Hypertensive heart disease with heart failure; I50.9 Heart failure, unspecified; E78.5 Hyperlipidemia, unspecified; K21.9 Gastro-esophageal reflux disease without esophagitis; J44.9 Chronic obstructive pulmonary disease, unspecified; I25.10 Atherosclerotic heart disease of native coronary artery without angina pectoris; I25.2 Old myocardial infarction; E87.1 Hypo-osmolality and hyponatremia; F17.210 Nicotine dependence, cigarettes, uncomplicated; F03.90 Unspecified dementia, unspecified severity, without behavioral disturbance, psychotic disturbance, mood disturbance, and anxiety; Z79.899 Other long term (current) drug therapy; Z85.42 Personal history of malignant neoplasm of other parts of uterus; Z90.49 Acquired absence of other specified parts of digestive tract; Z90.710 Acquired absence of both cervix and uterus; Z98.890 Other specified postprocedural states; Z95.0 Presence of cardiac pacemaker; Z71.6 Tobacco abuse counseling; Z90.89 Acquired absence of other organs; Z90.722 Acquired absence of ovaries, bilateral; Z79.84 Long term (current) use of oral hypoglycemic drugs
CPT/HCPCS: 36416; 82948; 97597

== ENCOUNTER 2020-03-18 09:45 | Day surgery (SDC) | payer MEDICARE, MEDICAID ==
[2020-03-18] MEDS ORDERED: LIDOcaine 2% 5ml jelly ONE (10:13)
== END 2020-03-18 11:06 | disposition home or self-care (01) ==
LOC: WOUND CARE 09:45
PROVIDERS: ATTEND Nurse Practitioner
DX: E11.622 Type 2 diabetes mellitus with other skin ulcer (principal); L89.152 Pressure ulcer of sacral region, stage 2; L98.491 Non-pressure chronic ulcer of skin of other sites limited to breakdown of skin; E11.65 Type 2 diabetes mellitus with hyperglycemia; I11.0 Hypertensive heart disease with heart failure; I50.9 Heart failure, unspecified; E78.5 Hyperlipidemia, unspecified; K21.9 Gastro-esophageal reflux disease without esophagitis; J44.9 Chronic obstructive pulmonary disease, unspecified; I25.10 Atherosclerotic heart disease of native coronary artery without angina pectoris; I25.2 Old myocardial infarction; E87.1 Hypo-osmolality and hyponatremia; F17.210 Nicotine dependence, cigarettes, uncomplicated; F03.90 Unspecified dementia, unspecified severity, without behavioral disturbance, psychotic disturbance, mood disturbance, and anxiety; Z79.899 Other long term (current) drug therapy; Z85.42 Personal history of malignant neoplasm of other parts of uterus; Z90.49 Acquired absence of other specified parts of digestive tract; Z90.710 Acquired absence of both cervix and uterus; Z98.890 Other specified postprocedural states; Z95.0 Presence of cardiac pacemaker; Z71.6 Tobacco abuse counseling; Z90.89 Acquired absence of other organs; Z90.722 Acquired absence of ovaries, bilateral; Z79.84 Long term (current) use of oral hypoglycemic drugs
CPT/HCPCS: 97597

== ENCOUNTER 2020-03-25 10:10 | Day surgery (SDC) | payer MEDICARE, MEDICAID ==
[2020-03-25] MEDS ORDERED: LIDOcaine 2% 5ml jelly ONE (10:28)
== END 2020-03-25 11:29 | disposition home or self-care (01) ==
LOC: WOUND CARE 10:10
PROVIDERS: ATTEND Nurse Practitioner
DX: E11.622 Type 2 diabetes mellitus with other skin ulcer (principal); L89.152 Pressure ulcer of sacral region, stage 2; L98.491 Non-pressure chronic ulcer of skin of other sites limited to breakdown of skin; E11.65 Type 2 diabetes mellitus with hyperglycemia; E78.5 Hyperlipidemia, unspecified; K21.9 Gastro-esophageal reflux disease without esophagitis; J44.9 Chronic obstructive pulmonary disease, unspecified; I11.0 Hypertensive heart disease with heart failure; I50.9 Heart failure, unspecified; I25.10 Atherosclerotic heart disease of native coronary artery without angina pectoris; I25.2 Old myocardial infarction; E87.1 Hypo-osmolality and hyponatremia; F17.210 Nicotine dependence, cigarettes, uncomplicated; F03.90 Unspecified dementia, unspecified severity, without behavioral disturbance, psychotic disturbance, mood disturbance, and anxiety; Z79.899 Other long term (current) drug therapy; Z85.42 Personal history of malignant neoplasm of other parts of uterus; Z90.49 Acquired absence of other specified parts of digestive tract; Z90.710 Acquired absence of both cervix and uterus; Z98.890 Other specified postprocedural states; Z95.0 Presence of cardiac pacemaker; Z71.6 Tobacco abuse counseling; Z90.89 Acquired absence of other organs; Z90.722 Acquired absence of ovaries, bilateral; Z79.84 Long term (current) use of oral hypoglycemic drugs
CPT/HCPCS: 97597

== ENCOUNTER 2020-04-01 10:25 | Day surgery (SDC) | payer MEDICARE, MEDICAID ==
[2020-04-01] MEDS ORDERED: LIDOcaine 2% 5ml jelly ONE (10:45)
== END 2020-04-01 11:20 | disposition home or self-care (01) ==
LOC: WOUND CARE 10:25
PROVIDERS: ATTEND Nurse Practitioner
DX: E11.622 Type 2 diabetes mellitus with other skin ulcer (principal); L89.152 Pressure ulcer of sacral region, stage 2; L98.491 Non-pressure chronic ulcer of skin of other sites limited to breakdown of skin; E11.65 Type 2 diabetes mellitus with hyperglycemia; E78.5 Hyperlipidemia, unspecified; K21.9 Gastro-esophageal reflux disease without esophagitis; J44.9 Chronic obstructive pulmonary disease, unspecified; I11.0 Hypertensive heart disease with heart failure; I50.9 Heart failure, unspecified; I25.10 Atherosclerotic heart disease of native coronary artery without angina pectoris; I25.2 Old myocardial infarction; E87.1 Hypo-osmolality and hyponatremia; F17.210 Nicotine dependence, cigarettes, uncomplicated; F03.90 Unspecified dementia, unspecified severity, without behavioral disturbance, psychotic disturbance, mood disturbance, and anxiety; Z79.899 Other long term (current) drug therapy; Z85.42 Personal history of malignant neoplasm of other parts of uterus; Z90.49 Acquired absence of other specified parts of digestive tract; Z90.710 Acquired absence of both cervix and uterus; Z98.890 Other specified postprocedural states; Z95.0 Presence of cardiac pacemaker; Z71.6 Tobacco abuse counseling; Z90.89 Acquired absence of other organs; Z90.722 Acquired absence of ovaries, bilateral; Z79.84 Long term (current) use of oral hypoglycemic drugs
CPT/HCPCS: 97597

== ENCOUNTER 2020-04-13 09:15 | Day surgery (SDC) | payer MEDICARE, MEDICAID ==
[2020-04-13] MEDS ORDERED: nystatin/triamcinolone cream 15gm TP ONE (10:12)
== END 2020-04-13 10:19 | disposition home or self-care (01) ==
LOC: WOUND CARE 09:15
PROVIDERS: ATTEND Nurse Practitioner
DX: E11.622 Type 2 diabetes mellitus with other skin ulcer (principal); L89.152 Pressure ulcer of sacral region, stage 2; L98.491 Non-pressure chronic ulcer of skin of other sites limited to breakdown of skin; E11.65 Type 2 diabetes mellitus with hyperglycemia; E78.5 Hyperlipidemia, unspecified; K21.9 Gastro-esophageal reflux disease without esophagitis; J44.9 Chronic obstructive pulmonary disease, unspecified; I11.0 Hypertensive heart disease with heart failure; I50.9 Heart failure, unspecified; I25.10 Atherosclerotic heart disease of native coronary artery without angina pectoris; I25.2 Old myocardial infarction; E87.1 Hypo-osmolality and hyponatremia; F17.210 Nicotine dependence, cigarettes, uncomplicated; F03.90 Unspecified dementia, unspecified severity, without behavioral disturbance, psychotic disturbance, mood disturbance, and anxiety; Z79.899 Other long term (current) drug therapy; Z85.42 Personal history of malignant neoplasm of other parts of uterus; Z90.49 Acquired absence of other specified parts of digestive tract; Z90.710 Acquired absence of both cervix and uterus; Z98.890 Other specified postprocedural states; Z95.0 Presence of cardiac pacemaker; Z71.6 Tobacco abuse counseling; Z90.89 Acquired absence of other organs; Z90.722 Acquired absence of ovaries, bilateral; Z79.84 Long term (current) use of oral hypoglycemic drugs
CPT/HCPCS: 97597; J7999

== ENCOUNTER 2020-05-13 10:10 | Day surgery (SDC) | payer MEDICARE, MEDICAID ==
[2020-05-13] MEDS ORDERED: LIDOcaine 2% 5ml jelly ONE (10:38)
== END 2020-05-13 11:42 | disposition home or self-care (01) ==
LOC: WOUND CARE 10:10
PROVIDERS: ATTEND Nurse Practitioner
DX: E11.622 Type 2 diabetes mellitus with other skin ulcer (principal); L89.152 Pressure ulcer of sacral region, stage 2; L98.491 Non-pressure chronic ulcer of skin of other sites limited to breakdown of skin; E11.65 Type 2 diabetes mellitus with hyperglycemia; E78.5 Hyperlipidemia, unspecified; K21.9 Gastro-esophageal reflux disease without esophagitis; J44.9 Chronic obstructive pulmonary disease, unspecified; I11.0 Hypertensive heart disease with heart failure; I50.9 Heart failure, unspecified; I25.10 Atherosclerotic heart disease of native coronary artery without angina pectoris; I25.2 Old myocardial infarction; E87.1 Hypo-osmolality and hyponatremia; F17.210 Nicotine dependence, cigarettes, uncomplicated; F03.90 Unspecified dementia, unspecified severity, without behavioral disturbance, psychotic disturbance, mood disturbance, and anxiety; Z79.899 Other long term (current) drug therapy; Z85.42 Personal history of malignant neoplasm of other parts of uterus; Z90.49 Acquired absence of other specified parts of digestive tract; Z90.710 Acquired absence of both cervix and uterus; Z98.890 Other specified postprocedural states; Z95.0 Presence of cardiac pacemaker; Z71.6 Tobacco abuse counseling; Z90.89 Acquired absence of other organs; Z90.722 Acquired absence of ovaries, bilateral; Z79.84 Long term (current) use of oral hypoglycemic drugs
CPT/HCPCS: G0463

== ENCOUNTER 2020-07-07 23:21 | Emergency (ER) | payer MEDICARE, MEDICAID ==
[~2020-07-07] VITALS: Ht 152.4 cm; Wt 36.4 kg
[2020-07-07] MEDS ORDERED: albuterol 2.5 MG/3 ML nebule NEB ONE (23:40)
[2020-07-07 23:53] LABS: HEMOGLOBIN 13.6 g/dl (12.0-16.0); MEAN CORPUSCULAR VOLUME 79.5 FL (78-98)
[2020-07-07 23:55] LABS: BASOPHILS # (AUTO) 0.1 X10'3 (0-0.2); BASOPHILS % (AUTO) 1.7 % (0-1); EOSINOPHILS # (AUTO) 0.1 X10'3 (0-0.9); EOSINOPHILS % (AUTO) 2.7 % (0-6); HEMATOCRIT 40.3 % (35.0-45.0); LYMPHOCYTES # (AUTO) 1.7 X10'3 (1.1-4.8); LYMPHOCYTES % (AUTO) 33.1 % (21-51); MEAN CORPUSCULAR HEMOGLOBIN 26.8 PG (27.0-31.0); MEAN CORPUSCULAR HGB CONC 33.7 g/dL (33.0-36.5); MONOCYTES # (AUTO) 0.6 X10'3 (0-0.9); MONOCYTES % (AUTO) 12.4 % (2-12); NEUTROPHILS # (AUTO) 2.6 X10'3 (1.8-7.7); NEUTROPHILS % (AUTO) 50.1 % (42-75); PLATELET COUNT 218 X10'3 (140-440); RED BLOOD COUNT 5.07 X10'6 (4.20-5.60); RED CELL DISTRIBUTION WIDTH 18.7 % (11.5-14.5); WHITE BLOOD COUNT 5.2 X10'3 (4.5-11.0)
[2020-07-08 00:43] VITALS: BP 154/68
[2020-07-08 00:50] LABS: ANISOCYTOSIS 2+; PLATELET ESTIMATE NORMAL
[2020-07-08 00:51] LABS: MICROCYTOSIS 1+
[2020-07-08 00:54] LABS: SPHEROCYTES FEW
[2020-07-08 00:55] LABS: TARGET CELLS FEW
[2020-07-08 00:57] LABS: POIKILOCYTOSIS FEW
[2020-07-08 01:07] LABS: ALANINE AMINOTRANSFERASE 15 U/L (12-78); ALBUMIN 3.8 G/DL (3.4-5.0); ALKALINE PHOSPHATASE 114 IU/L (46-116); ANION GAP 8 (8-16); ASPARTATE AMINO TRANSFERASE 23 U/L (10-37); BILIRUBIN,TOTAL 0.4 MG/DL (0.1-1.0); CALCIUM 8.7 MG/DL (8.5-10.1); CHLORIDE 87 MMOL/L (99-107); CREATININE 0.45 MG/DL (0.40-0.90); GLUCOSE 94 MG/DL (70-104); POTASSIUM 3.9 MMOL/L (3.5-5.1); SODIUM 122 MMOL/L (135-145); TOTAL PROTEIN 7.6 G/DL (6.4-8.2); eGFR > 90 ML/MIN
[2020-07-08 01:15] LABS: BLOOD UREA NITROGEN 4 MG/DL (7-18); BUN/CREATININE RATIO 8.9 (6.6-38.0)
[2020-07-08] MEDS ORDERED: ALB0.5UD IH (01:47)
== END 2020-07-08 02:03 | disposition home or self-care (01) ==
LOC: ER 23:22
DX: J44.9 Chronic obstructive pulmonary disease, unspecified (principal); R06.02 Shortness of breath; R06.2 Wheezing; I25.10 Atherosclerotic heart disease of native coronary artery without angina pectoris; I25.2 Old myocardial infarction; E11.9 Type 2 diabetes mellitus without complications; F17.200 Nicotine dependence, unspecified, uncomplicated; Z87.01 Personal history of pneumonia (recurrent); Z90.89 Acquired absence of other organs; Z90.710 Acquired absence of both cervix and uterus; Z95.0 Presence of cardiac pacemaker; Z88.8 Allergy status to other drugs, medicaments and biological substances; Z88.0 Allergy status to penicillin; Z88.2 Allergy status to sulfonamides; Z88.5 Allergy status to narcotic agent; Z79.899 Other long term (current) drug therapy
CPT/HCPCS: 36415; 71045; 80053; 83880; 85008; 85025; 93005; 94640; 94760; 99285

== ENCOUNTER 2020-07-10 19:31 | Emergency (ER) | payer MEDICARE, MEDICAID ==
[~2020-07-10] VITALS: Ht 149.9 cm; Wt 30.2 kg
[~2020-07-10 19:31] MED LIST changes: +ALB0.5UD IH
[2020-07-10 19:34] VITALS: BP 160/69
== END 2020-07-10 20:25 | disposition home or self-care (01) ==
LOC: ER 19:32
DX: J44.9 Chronic obstructive pulmonary disease, unspecified (principal); Z72.0 Tobacco use; F03.90 Unspecified dementia, unspecified severity, without behavioral disturbance, psychotic disturbance, mood disturbance, and anxiety; I25.10 Atherosclerotic heart disease of native coronary artery without angina pectoris; E11.9 Type 2 diabetes mellitus without complications; Z90.89 Acquired absence of other organs; Z95.0 Presence of cardiac pacemaker; Z90.49 Acquired absence of other specified parts of digestive tract; Z98.890 Other specified postprocedural states; Z88.0 Allergy status to penicillin; Z88.5 Allergy status to narcotic agent; Z88.2 Allergy status to sulfonamides; Z79.899 Other long term (current) drug therapy
CPT/HCPCS: 93005; 99283

== ENCOUNTER 2020-08-14 12:13 | Emergency (ER) | payer MEDICARE, MEDICAID ==
[~2020-08-14] VITALS: Ht 149.9 cm; Wt 31.8 kg
[~2020-08-14 12:13] MED LIST changes: -ALB0.5UD IH
--- NOTE | 2020-08-14 13:35 | NUR ---
Pt ambulated to the restroom with her walker and back to bed without any difficulty.
[2020-08-14] MEDS ORDERED: aspirin 81mg tab.chew PO ONE (14:30)
[2020-08-14 14:50] VITALS: BP 117/69
[2020-08-14 15:01] LABS: BASOPHILS # (AUTO) 0.1 X10'3 (0-0.2); BASOPHILS % (AUTO) 1.5 % (0-1); EOSINOPHILS # (AUTO) 0.2 X10'3 (0-0.9); EOSINOPHILS % (AUTO) 1.9 % (0-6); HEMATOCRIT 39.5 % (35.0-45.0); HEMOGLOBIN 13.2 g/dl (12.0-16.0); LYMPHOCYTES # (AUTO) 1.8 X10'3 (1.1-4.8); LYMPHOCYTES % (AUTO) 22.3 % (21-51); MEAN CORPUSCULAR HEMOGLOBIN 28.1 PG (27.0-31.0); MEAN CORPUSCULAR HGB CONC 33.4 g/dL (33.0-36.5); MEAN CORPUSCULAR VOLUME 83.9 FL (78-98); MEAN PLATELET VOLUME 7.6 FL (7.4-10.4); MONOCYTES # (AUTO) 0.7 X10'3 (0-0.9); MONOCYTES % (AUTO) 9.2 % (2-12); NEUTROPHILS # (AUTO) 5.3 X10'3 (1.8-7.7); NEUTROPHILS % (AUTO) 65.1 % (42-75); PLATELET COUNT 222 X10'3 (140-440); RED CELL DISTRIBUTION WIDTH 16.7 % (11.5-14.5); WHITE BLOOD COUNT 8.1 X10'3 (4.5-11.0)
[2020-08-14 15:18] LABS: ALANINE AMINOTRANSFERASE 8 U/L (12-78); ALBUMIN 3.9 G/DL (3.4-5.0); ALKALINE PHOSPHATASE 100 IU/L (46-116); ANION GAP 8 (8-16); ASPARTATE AMINO TRANSFERASE 19 U/L (10-37); BILIRUBIN,TOTAL 0.5 MG/DL (0.1-1.0); BLOOD UREA NITROGEN 6 MG/DL (7-18); BUN/CREATININE RATIO 11.3 (6.6-38.0); CALCIUM 8.9 MG/DL (8.5-10.1); CHLORIDE 94 MMOL/L (99-107); CREATININE 0.53 MG/DL (0.40-0.90); GLUCOSE 90 MG/DL (70-104); SODIUM 133 MMOL/L (135-145); TOTAL CARBON DIOXIDE 31.4 MMOL/L (24-32); TOTAL PROTEIN 7.9 G/DL (6.4-8.2); eGFR > 90 ML/MIN
[2020-08-14 15:27] LABS: MAGNESIUM 2.1 MG/DL (1.5-2.4)
--- NOTE | 2020-08-14 16:06 | NUR ---
Dr Cortes at bedside. This RN explained to the pt that her caregiver is most likely getting admitted. Pt's caregiver asked that we let the pt know that. Pt states, "I will need the hotel adams from her". Let pt know we can get that for her.
== END 2020-08-14 16:31 | disposition home or self-care (01) ==
LOC: ER 12:14
DX: R00.2 Palpitations (principal); F03.90 Unspecified dementia, unspecified severity, without behavioral disturbance, psychotic disturbance, mood disturbance, and anxiety; I25.10 Atherosclerotic heart disease of native coronary artery without angina pectoris; I25.2 Old myocardial infarction; J44.9 Chronic obstructive pulmonary disease, unspecified; E11.9 Type 2 diabetes mellitus without complications; Z90.49 Acquired absence of other specified parts of digestive tract; Z00.00 Encounter for general adult medical examination without abnormal findings; Z90.710 Acquired absence of both cervix and uterus; Z95.0 Presence of cardiac pacemaker; Z90.89 Acquired absence of other organs; Z88.0 Allergy status to penicillin; Z88.2 Allergy status to sulfonamides; Z88.5 Allergy status to narcotic agent; Z79.899 Other long term (current) drug therapy
CPT/HCPCS: 36415; 71045; 80053; 83735; 83880; 84484; 85025; 93005; 99285

== ENCOUNTER 2020-08-25 20:04 | Emergency (ER) | payer MEDICARE, MEDICAID ==
[~2020-08-25] VITALS: Ht 149.9 cm; Wt 45.0 kg
[2020-08-25 20:11] VITALS: BP 174/85
== END 2020-08-25 21:47 | disposition left against medical advice (07) ==
LOC: ER 20:05
DX: T14.8XXA Other injury of unspecified body region, initial encounter (principal); Z53.21 Procedure and treatment not carried out due to patient leaving prior to being seen by health care provider; W19.XXXA Unspecified fall, initial encounter; Y93.89 Activity, other specified; Y92.89 Other specified places as the place of occurrence of the external cause; Y99.8 Other external cause status

== ENCOUNTER 2020-11-07 10:54 | Emergency (ER) | payer MEDICARE, MEDICAID ==
[~2020-11-07] VITALS: Ht 149.9 cm; Wt 60.9 kg
[2020-11-07 11:16] VITALS: BP 132/60
== END 2020-11-07 11:30 | disposition home or self-care (01) ==
LOC: ER 10:55
DX: R60.0 Localized edema (principal); F03.90 Unspecified dementia, unspecified severity, without behavioral disturbance, psychotic disturbance, mood disturbance, and anxiety; I25.10 Atherosclerotic heart disease of native coronary artery without angina pectoris; J44.9 Chronic obstructive pulmonary disease, unspecified; E11.9 Type 2 diabetes mellitus without complications; Z91.041 Radiographic dye allergy status; Z88.0 Allergy status to penicillin; Z88.2 Allergy status to sulfonamides; Z88.8 Allergy status to other drugs, medicaments and biological substances; Z79.899 Other long term (current) drug therapy; Z90.49 Acquired absence of other specified parts of digestive tract; Z90.710 Acquired absence of both cervix and uterus; Z98.890 Other specified postprocedural states; Z95.0 Presence of cardiac pacemaker
CPT/HCPCS: 99282

== ENCOUNTER 2020-11-13 17:22 | Emergency (ER) | payer MEDICARE, MEDICAID ==
[~2020-11-13] VITALS: Ht 149.9 cm; Wt 45.5 kg
[2020-11-13 17:30] VITALS: BP 184/78
--- NOTE | 2020-11-13 17:32 | NUR ---
Pt refusing to get into gown.
--- NOTE | 2020-11-13 17:33 | NUR ---
JAVA DEVELOPER CONSULTANT - NORMAN - [phone]
== END 2020-11-13 17:54 | disposition home or self-care (01) ==
LOC: ER 17:23
DX: M79.604 Pain in right leg (principal); I25.10 Atherosclerotic heart disease of native coronary artery without angina pectoris; I25.2 Old myocardial infarction; J44.9 Chronic obstructive pulmonary disease, unspecified; E11.9 Type 2 diabetes mellitus without complications; F03.90 Unspecified dementia, unspecified severity, without behavioral disturbance, psychotic disturbance, mood disturbance, and anxiety; Z90.49 Acquired absence of other specified parts of digestive tract; Z90.710 Acquired absence of both cervix and uterus; Z95.0 Presence of cardiac pacemaker; Z90.89 Acquired absence of other organs; Z91.041 Radiographic dye allergy status; Z88.0 Allergy status to penicillin; Z88.2 Allergy status to sulfonamides; Z88.5 Allergy status to narcotic agent; Z79.899 Other long term (current) drug therapy
CPT/HCPCS: 99281

== ENCOUNTER 2020-11-21 14:09 | Emergency (ER) | payer MEDICARE, MEDICAID ==
[~2020-11-21] VITALS: Ht 149.9 cm; Wt 51.3 kg
[2020-11-21 14:10] VITALS: BP 181/69
== END 2020-11-21 14:56 | disposition home or self-care (01) ==
LOC: ER 14:10
DX: R60.0 Localized edema (principal); F03.90 Unspecified dementia, unspecified severity, without behavioral disturbance, psychotic disturbance, mood disturbance, and anxiety; I25.10 Atherosclerotic heart disease of native coronary artery without angina pectoris; J44.9 Chronic obstructive pulmonary disease, unspecified; E11.9 Type 2 diabetes mellitus without complications; F17.200 Nicotine dependence, unspecified, uncomplicated; Z87.01 Personal history of pneumonia (recurrent); Z90.49 Acquired absence of other specified parts of digestive tract; Z90.710 Acquired absence of both cervix and uterus; Z95.0 Presence of cardiac pacemaker; Z91.041 Radiographic dye allergy status; Z88.0 Allergy status to penicillin; Z88.2 Allergy status to sulfonamides; Z88.6 Allergy status to analgesic agent; Z79.899 Other long term (current) drug therapy
CPT/HCPCS: 99281

== ENCOUNTER 2020-12-08 22:52 | Emergency (ER) | payer MEDICARE, MEDICAID ==
[~2020-12-08] VITALS: Ht 147.3 cm; Wt 47.3 kg
[2020-12-08 23:11] VITALS: BP 156/73
[2020-12-08] MEDS ORDERED: CEPH250T PO (23:34)
[2020-12-08] MEDS ORDERED: cephalexin 250mg capsule PO ONE (23:35)
== END 2020-12-08 23:50 | disposition home or self-care (01) ==
LOC: ER 22:52
DX: L03.115 Cellulitis of right lower limb (principal); M79.661 Pain in right lower leg; M79.89 Other specified soft tissue disorders; I25.10 Atherosclerotic heart disease of native coronary artery without angina pectoris; I25.2 Old myocardial infarction; J44.9 Chronic obstructive pulmonary disease, unspecified; E11.9 Type 2 diabetes mellitus without complications; Z87.01 Personal history of pneumonia (recurrent); Z90.89 Acquired absence of other organs; Z95.0 Presence of cardiac pacemaker; Z90.710 Acquired absence of both cervix and uterus; Z88.0 Allergy status to penicillin; Z88.2 Allergy status to sulfonamides; Z88.5 Allergy status to narcotic agent; Z88.8 Allergy status to other drugs, medicaments and biological substances; Z79.2 Long term (current) use of antibiotics; Z79.899 Other long term (current) drug therapy
CPT/HCPCS: 99283

== ENCOUNTER 2020-12-15 14:19 | Emergency (ER) | payer MEDICARE, MEDICAID ==
[~2020-12-15] VITALS: Ht 149.9 cm; Wt 48.6 kg
[~2020-12-15 14:19] MED LIST changes: +CEPH250T PO
[2020-12-15 14:32] VITALS: BP 167/80
[2020-12-15] MEDS ORDERED: furosemide 20MG tablet PO ONE (16:50)
== END 2020-12-15 17:13 | disposition home or self-care (01) ==
LOC: ER 14:21
DX: R60.0 Localized edema (principal); M79.605 Pain in left leg; M79.604 Pain in right leg; I25.10 Atherosclerotic heart disease of native coronary artery without angina pectoris; I25.2 Old myocardial infarction; J44.9 Chronic obstructive pulmonary disease, unspecified; E11.9 Type 2 diabetes mellitus without complications; Z87.01 Personal history of pneumonia (recurrent); Z90.89 Acquired absence of other organs; Z90.710 Acquired absence of both cervix and uterus; Z95.0 Presence of cardiac pacemaker; Z88.0 Allergy status to penicillin; Z88.2 Allergy status to sulfonamides; Z88.8 Allergy status to other drugs, medicaments and biological substances; Z79.2 Long term (current) use of antibiotics; Z79.899 Other long term (current) drug therapy
CPT/HCPCS: 99283

== ENCOUNTER 2021-01-01 16:07 | Emergency (ER) | payer MEDICARE, MEDICAID ==
[~2021-01-01] VITALS: Ht 149.9 cm; Wt 50.4 kg
[2021-01-01 17:36] VITALS: BP 130/79
--- NOTE | 2021-01-01 18:00 | NUR ---
PATIENT WAS WALKING OUT OF ER, ASKED TO GO BACK TO ROOM AND SHE DID
--- NOTE | 2021-01-01 18:19 | NUR ---
CAREGIVER NORMAN WHEAT [phone] AT BEDSIDE
[2021-01-01] MEDS ORDERED: furosemide 20MG tablet PO ONE (18:45)
[2021-01-01] MEDS ORDERED: LEVO750T46 PO (18:55)
[2021-01-01] MEDS ORDERED: METR500T PO (18:55)
== END 2021-01-01 19:03 | disposition home or self-care (01) ==
LOC: ER 16:07
DX: K04.7 Periapical abscess without sinus (principal); R22.43 Localized swelling, mass and lump, lower limb, bilateral; F03.90 Unspecified dementia, unspecified severity, without behavioral disturbance, psychotic disturbance, mood disturbance, and anxiety; I25.10 Atherosclerotic heart disease of native coronary artery without angina pectoris; I25.2 Old myocardial infarction; J44.9 Chronic obstructive pulmonary disease, unspecified; E11.9 Type 2 diabetes mellitus without complications; Z87.01 Personal history of pneumonia (recurrent); Z90.49 Acquired absence of other specified parts of digestive tract; Z95.5 Presence of coronary angioplasty implant and graft; Z90.710 Acquired absence of both cervix and uterus; Z91.041 Radiographic dye allergy status; Z88.0 Allergy status to penicillin; Z88.2 Allergy status to sulfonamides; Z88.8 Allergy status to other drugs, medicaments and biological substances; Z79.2 Long term (current) use of antibiotics; Z79.899 Other long term (current) drug therapy
CPT/HCPCS: 99283

== ENCOUNTER 2021-01-09 08:48 | Emergency (ER) | payer MEDICARE, MEDICAID ==
[~2021-01-09] VITALS: Ht 149.9 cm; Wt 48.6 kg
[~2021-01-09 08:48] MED LIST changes: +LEVO750T46 PO; +METR500T PO
[2021-01-09 10:24] LABS: BASOPHILS # (AUTO) 0.1 X10'3 (0-0.2); EOSINOPHILS # (AUTO) 0.2 X10'3 (0-0.9); EOSINOPHILS % (AUTO) 3.6 % (0-6); HEMATOCRIT 35.8 % (35.0-45.0); HEMOGLOBIN 11.5 g/dl (12.0-16.0); LYMPHOCYTES # (AUTO) 1.1 X10'3 (1.1-4.8); LYMPHOCYTES % (AUTO) 20.2 % (21-51); MEAN CORPUSCULAR HEMOGLOBIN 23.9 PG (27.0-31.0); MEAN CORPUSCULAR HGB CONC 32.2 g/dL (33.0-36.5); MEAN PLATELET VOLUME 7.4 FL (7.4-10.4); MONOCYTES # (AUTO) 0.8 X10'3 (0-0.9); MONOCYTES % (AUTO) 14.1 % (2-12); NEUTROPHILS # (AUTO) 3.4 X10'3 (1.8-7.7); NEUTROPHILS % (AUTO) 60.1 % (42-75); PLATELET COUNT 238 X10'3 (140-440); RED BLOOD COUNT 4.83 X10'6 (4.20-5.60); RED CELL DISTRIBUTION WIDTH 20.1 % (11.5-14.5); WHITE BLOOD COUNT 5.7 X10'3 (4.5-11.0)
[2021-01-09 10:34] LABS: ALANINE AMINOTRANSFERASE 12 U/L (12-78); ALBUMIN 3.2 G/DL (3.4-5.0); ALBUMIN/GLOBULIN RATIO 0.8 (1.1-1.5); ALKALINE PHOSPHATASE 107 IU/L (46-116); ANION GAP 9 (8-16); ASPARTATE AMINO TRANSFERASE 22 U/L (10-37); BILIRUBIN,TOTAL 0.4 MG/DL (0.1-1.0); BLOOD UREA NITROGEN 5 MG/DL (7-18); BUN/CREATININE RATIO 9.8 (6.6-38.0); CALCIUM 8.7 MG/DL (8.5-10.1); CHLORIDE 98 MMOL/L (99-107); CREATININE 0.51 MG/DL (0.40-0.90); GLUCOSE 146 MG/DL (70-104); POTASSIUM 3.4 MMOL/L (3.5-5.1); SODIUM 134 MMOL/L (135-145); TOTAL CARBON DIOXIDE 27.3 MMOL/L (24-32); eGFR > 90 ML/MIN
[2021-01-09 10:53] LABS: PLATELET ESTIMATE NORMAL
[2021-01-09 10:54] LABS: ACANTHOCYTES FEW; ANISOCYTOSIS 3+; BURR CELLS FEW; ELLIPTOCYTES FEW; HYPOCHROMASIA 1+; MICROCYTOSIS 1+; POLYCHROMASIA FEW; SCHISTOCYTES FEW; TARGET CELLS FEW; TEAR DROP CELLS FEW
[2021-01-09] MEDS ORDERED: potassium Cl 20 mEq SR tablet PO ONE (11:20)
[2021-01-09] MEDS ORDERED: magnesium oxide 400mg tablet PO ONE (11:20)
--- NOTE | 2021-01-09 11:30 | NUR ---
UP TO BSC, VERY DIZZY, DR ALFORD INFORMED, ORDER FOR 500 ML BOLUS
[2021-01-09] MEDS ORDERED: normal saline 500ml IV soln 500 ML IV ONE (11:35)
[2021-01-09 11:45] VITALS: BP 158/79
--- NOTE | 2021-01-09 12:13 | NUR ---
PATIENT NOT DIZZY WHEN UP TO BSC AFTER 500 ML BOLUS OF NS
== END 2021-01-09 12:40 | disposition home or self-care (01) ==
LOC: ER 08:49
DX: R42 Dizziness and giddiness (principal); M79.661 Pain in right lower leg; M79.662 Pain in left lower leg; I25.10 Atherosclerotic heart disease of native coronary artery without angina pectoris; I25.2 Old myocardial infarction; J44.9 Chronic obstructive pulmonary disease, unspecified; E11.9 Type 2 diabetes mellitus without complications; F03.90 Unspecified dementia, unspecified severity, without behavioral disturbance, psychotic disturbance, mood disturbance, and anxiety; Z90.49 Acquired absence of other specified parts of digestive tract; Z90.710 Acquired absence of both cervix and uterus; Z90.89 Acquired absence of other organs; Z95.0 Presence of cardiac pacemaker; Z91.041 Radiographic dye allergy status; Z88.2 Allergy status to sulfonamides; Z88.5 Allergy status to narcotic agent; Z79.899 Other long term (current) drug therapy
CPT/HCPCS: 80053; 85008; 85025; 96360; 99284; J7040; 99283

== ENCOUNTER 2021-01-09 16:39 | Emergency (ER) | payer MEDICARE, MEDICAID ==
[~2021-01-09] VITALS: Ht 149.9 cm; Wt 48.6 kg
[2021-01-09 17:37] VITALS: BP 152/74
== END 2021-01-09 21:18 | disposition left against medical advice (07) ==
LOC: ER 16:39
DX: R06.02 Shortness of breath (principal); Z53.21 Procedure and treatment not carried out due to patient leaving prior to being seen by health care provider
CPT/HCPCS: 93005

== ENCOUNTER 2021-01-14 02:34 | Emergency (ER) | payer MEDICARE, MEDICAID ==
[~2021-01-14] VITALS: Ht 142.2 cm; Wt 50.0 kg
[~2021-01-14 02:34] MED LIST changes: -LEVO750T46 PO; -METR500T PO
--- NOTE | 2021-01-14 02:57 | NUR ---
PT ALEXX HER CAREGIVER, NORMAN.
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
[2021-01-14] MEDS ORDERED: acetaminophen 325mg tablet PO ONE (03:00)
[2021-01-14] MEDS ORDERED: famotidine 20mg tablet PO ONE (03:00)
[2021-01-14] MEDS: ondansetron 4mg rapidly disintigrating tab PO ONE ×2 (03:04→03:31)
--- NOTE | 2021-01-14 03:20 | NUR ---
EKG completed. Pt provided meds (pepcid, zofran, tylenol), but refused. Pt updated of the purpose of the meds and why MD ordered them. States she does not want to take them. Caregiver states that Pt dose not like taking meds. Caregiver told pt she has taken zofran ini the past, but Pt still refused. Dr. Rodney updated and in to talk with Pt. Pt DC ready now.
[2021-01-14 03:32] VITALS: BP 145/79
--- NOTE | 2021-01-14 03:32 | NUR ---
dc teaching completed and pt startinig to leave then decided she would take the zofran. Given zofran.
[2021-01-15] MEDS ORDERED: ASPI-1265 PO (23:53)
== END 2021-01-14 03:33 | disposition home or self-care (01) ==
LOC: ER 02:35
DX: G89.29 Other chronic pain (principal); M79.604 Pain in right leg; M79.605 Pain in left leg; R11.0 Nausea; I25.10 Atherosclerotic heart disease of native coronary artery without angina pectoris; I25.2 Old myocardial infarction; J44.9 Chronic obstructive pulmonary disease, unspecified; E11.9 Type 2 diabetes mellitus without complications; Z90.49 Acquired absence of other specified parts of digestive tract; Z95.0 Presence of cardiac pacemaker; Z88.0 Allergy status to penicillin; Z88.2 Allergy status to sulfonamides; Z88.5 Allergy status to narcotic agent; Z79.82 Long term (current) use of aspirin; Z79.899 Other long term (current) drug therapy
CPT/HCPCS: 93005; 99284

== ENCOUNTER 2021-01-15 20:15 | Inpatient (IN) | payer MEDICARE, MEDICAID ==
[~2021-01-15] VITALS: Ht 149.9 cm; Wt 48.0 kg
[2021-01-15 21:06] LABS: BASOPHILS # (AUTO) 0.1 X10'3 (0-0.2); BASOPHILS % (AUTO) 1.4 % (0-1); EOSINOPHILS # (AUTO) 0.2 X10'3 (0-0.9); EOSINOPHILS % (AUTO) 3.5 % (0-6); HEMATOCRIT 36.1 % (35.0-45.0); HEMOGLOBIN 11.8 g/dl (12.0-16.0); LYMPHOCYTES # (AUTO) 1.8 X10'3 (1.1-4.8); LYMPHOCYTES % (AUTO) 27.7 % (21-51); MEAN CORPUSCULAR HEMOGLOBIN 24.1 PG (27.0-31.0); MEAN CORPUSCULAR HGB CONC 32.8 g/dL (33.0-36.5); MEAN CORPUSCULAR VOLUME 73.5 FL (78-98); MEAN PLATELET VOLUME 7.5 FL (7.4-10.4); MONOCYTES # (AUTO) 0.5 X10'3 (0-0.9); MONOCYTES % (AUTO) 8.1 % (2-12); NEUTROPHILS # (AUTO) 3.9 X10'3 (1.8-7.7); NEUTROPHILS % (AUTO) 59.3 % (42-75); PLATELET COUNT 232 X10'3 (140-440); RED BLOOD COUNT 4.91 X10'6 (4.20-5.60); RED CELL DISTRIBUTION WIDTH 21.4 % (11.5-14.5); WHITE BLOOD COUNT 6.5 X10'3 (4.5-11.0)
--- NOTE | 2021-01-15 21:10 | NUR ---
Patient refusing IV at this time. Labs pending, UA sent. Warm blankets given. On monitor.
[2021-01-15 21:20] LABS: ALANINE AMINOTRANSFERASE 18 U/L (12-78); ALBUMIN 3.5 G/DL (3.4-5.0); ALBUMIN/GLOBULIN RATIO 0.8 (1.1-1.5); ALKALINE PHOSPHATASE 114 IU/L (46-116); ANION GAP 11 (8-16); ASPARTATE AMINO TRANSFERASE 22 U/L (10-37); BILIRUBIN,TOTAL 0.4 MG/DL (0.1-1.0); BLOOD UREA NITROGEN 6 MG/DL (7-18); BUN/CREATININE RATIO 14.6 (6.6-38.0); CALCIUM 8.7 MG/DL (8.5-10.1); CHLORIDE 87 MMOL/L (99-107); CREATININE 0.41 MG/DL (0.40-0.90); GLUCOSE 111 MG/DL (70-104); POTASSIUM 4.6 MMOL/L (3.5-5.1); SODIUM 122 MMOL/L (135-145); TOTAL CARBON DIOXIDE 24.4 MMOL/L (24-32); TOTAL PROTEIN 7.7 G/DL (6.4-8.2); eGFR > 90 ML/MIN
[2021-01-15 21:40] LABS: ETHANOL 0.094 GM/DL (0.0-0.010)
[2021-01-15] MEDS ORDERED: ondansetron/PF 4mg/2ml inj IV ONE (21:45)
[2021-01-15] MEDS ORDERED: normal saline 1000ML IV soln IVB ONE (21:45)
[2021-01-15 21:47] LABS: URINE AMPHETAMINE SCREEN NEGATIVE (Neg); URINE BARBITUATE SCREEN NEGATIVE (Neg); URINE BENZODIAZEPINES SCREEN NEGATIVE (Neg); URINE CANNABINOID SCREEN NEGATIVE (Neg); URINE COCAINE SCREEN NEGATIVE (Neg); URINE METHADONE SCREEN NEGATIVE (Neg); URINE OPIATE SCREEN NEGATIVE (Neg); URINE PHENCYCLIDINE SCREEN NEGATIVE (Neg)
[2021-01-15 22:18] LABS: ANISOCYTOSIS 3+; MICROCYTOSIS 1+; PLATELET ESTIMATE NORMAL; POLYCHROMASIA FEW; SCHISTOCYTES FEW
[2021-01-15 22:19] LABS: BURR CELLS 1+
[2021-01-15] MEDS ORDERED: ondansetron/PF 4mg/2ml inj IV PRN (22:45)
[2021-01-15] MEDS ORDERED: acetaminophen 325mg tablet PO PRN (22:45)
[2021-01-15] MEDS ORDERED: potassium Cl 40MEQ/1/2NS 520ml 520 ML IV PRN ×2 (22:45)
[2021-01-15] MEDS ORDERED: mag hydrox/Alum hydrox/simeth 30ml oral suspension PO PRN (22:45)
[2021-01-15] MEDS ORDERED: normal saline 1000ml 1,000 ML IV SCH (22:45)
[2021-01-15] MEDS ORDERED: magnesium hydroxide 30ml (MOM) UD suspension PO PRN (22:45)
[2021-01-15] MEDS ORDERED: potassium Cl 20 mEq SR tablet PO PRN ×2 (22:45)
[2021-01-15] MEDS ORDERED: albuterol 2.5 MG/3 ML nebule NEB PRN (22:50)
--- NOTE | 2021-01-15 23:30 | NUR ---
Monument Stonecutter informed RN that patient refused 3 hr troponin draw. Patient is agitated with any IV activity. Frequently needs to use commode with assist.
[2021-01-15] MEDS ORDERED: ASPI-1265 PO (23:53)
--- NOTE | 2021-01-16 00:10 | NUR ---
VO from MD Krishnamurthy for UA to be sent. MD informed patient would like to speak to him.
[2021-01-16 00:30] LABS: CLARITY,URINE CLEAR (Clear); COLOR,URINE YELLOW (Yellow); GLUCOSE, URINE NEGATIVE (Neg); KETONES,URINE NEGATIVE (Neg); LEUKOCYTE ESTERASE ,URINE TRACE (Neg); NITRITES, URINE NEGATIVE (Neg); OCCULT BLOOD,URINE SMALL (Neg); PROTEIN,URINE NEGATIVE (Neg); UA COLLECTION TYPE CLN CATCH MIDSTREAM; UROBILINOGEN,URINE 0.2 E.U/dL (0.2-1.0)
[2021-01-16 00:36] LABS: BACTERIA,URINE NONE SEEN /HPF (Neg); RBC,URINE 0-2 /HPF (0-2); SQUAMOUS EPITHELIAL CELL,UR FEW /LPF (FEW); WBC,URINE 0-4 /HPF (0-4)
[2021-01-16 00:45] VITALS: BP 135/70
--- NOTE | 2021-01-16 00:45 | NUR ---
PATIENT ADMITTED TO ROOM 348A FROM ER FOR HYPONATREMIA. PLACED COMFORTABLE IN BED. VITAL SIGNS TAKEN AND RECORDED.
--- NOTE | 2021-01-16 02:30 | NUR ---
PATIENT STILL REFUSED BLOOOD DRAW FOR 6 HOUR TROPONIN, SHE REFUSED EARLIER IN ER FOR THE 3 HOUR TROPONIN.
--- NOTE | 2021-01-16 06:30 | NUR ---
Problems reprioritized. Patient report given, questions answered & plan of care reviewed with HAYLIE RN.
[2021-01-16] MEDS ORDERED: K and/or MAG REPLACEMENT MC SCH (08:00)
[2021-01-16] MEDS ORDERED: heparin, porcine 5000 units/ml vial SQ SCH (08:00)
[2021-01-16] MEDS ORDERED: carVEDilol 3.125mg tablet PO SCH (08:00)
[2021-01-16 08:07] VITALS: BP 116/59
--- NOTE | 2021-01-16 09:23 | NUR ---
Patient insisted iv fluids stopped at this time. Patient thinking about going AMA.
--- NOTE | 2021-01-16 09:33 | NUR ---
Patient refused to stay any long and has just signed her AMA papers and is about to leave.
[2021-01-16] MEDS ORDERED: LORazepam 2 mg/ml vial IV PRN (09:45)
[2021-01-16] MEDS ORDERED: haloperidol 5mg tablet PO PRN (09:45)
[2021-01-16] MEDS ORDERED: thiamine inj. 100 MG in normal saline 100ml IV soln 100 ML IV ONE (09:45)
--- NOTE | 2021-01-16 09:47 | NUR ---
PAGER ID: [phone] MESSAGE: [phone] Brittney Garcia has left AMA. Paper work completed. Daniel. [phone]
--- NOTE | 2021-01-16 09:50 | NUR ---
Physician called back and acknowledged that patient left AMA
--- NOTE | 2021-01-16 10:00 | NUR ---
Patient left AMA and all belongings were taken at this time. IV taken out canula whole and intact upon inspection and some bleeding was noted so pressure was held. patient helped out of the hospital with the school childcare attendant.
[2021-01-17] MEDS ORDERED: folic acid inj. 2 MG, thiamine inj. 100 MG, MVI, adult No.4 with vit. K 10 ML in dextro... IV SCH ×4 (08:00)
[2021-01-18] MEDS ORDERED: LORazepam 1 MG tablet PO PRN (09:45)
[2021-01-18] MEDS ORDERED: LORazepam 2 mg/ml vial IV PRN (09:45)
[2021-01-20] MEDS ORDERED: LORazepam 2 mg/ml vial IV PRN (09:45)
[2021-01-20] MEDS ORDERED: LORazepam 1 MG tablet PO PRN (09:45)
== END 2021-01-16 09:44 | disposition left against medical advice (07) | DRG 641 ==
LOC: ER 20:16 → ED HOLD 22:43 → SUR 3N 01-16 00:40
PROVIDERS: ADMIT Internal Medicine; ATTEND Family Medicine
DX: E87.1 Hypo-osmolality and hyponatremia (principal); I50.30 Unspecified diastolic (congestive) heart failure; M80.88XA Other osteoporosis with current pathological fracture, vertebra(e), initial encounter for fracture; E11.9 Type 2 diabetes mellitus without complications; F03.90 Unspecified dementia, unspecified severity, without behavioral disturbance, psychotic disturbance, mood disturbance, and anxiety; G89.29 Other chronic pain; I25.10 Atherosclerotic heart disease of native coronary artery without angina pectoris; J44.9 Chronic obstructive pulmonary disease, unspecified; Z53.29 Procedure and treatment not carried out because of patient's decision for other reasons; M79.604 Pain in right leg; M79.605 Pain in left leg; F17.200 Nicotine dependence, unspecified, uncomplicated; Z90.49 Acquired absence of other specified parts of digestive tract; I25.2 Old myocardial infarction; Z90.710 Acquired absence of both cervix and uterus; Z59.0 Homelessness; Z88.5 Allergy status to narcotic agent; Z88.0 Allergy status to penicillin; Z88.2 Allergy status to sulfonamides; Z91.041 Radiographic dye allergy status; Z80.9 Family history of malignant neoplasm, unspecified; Z79.899 Other long term (current) drug therapy; Z91.19 Patient's noncompliance with other medical treatment and regimen
CPT/HCPCS: 36415; 71045; 80053; 80305; 80320; 81001; 83880; 84443; 84484; 85008; 85025; 87081; 87088; 93005; 99285; G0378; J2405; J7030

== ENCOUNTER 2021-03-09 03:15 | Emergency (ER) | payer MEDICARE, MEDICAID ==
[~2021-03-09] VITALS: Ht 139.7 cm; Wt 45.0 kg
[~2021-03-09 03:15] MED LIST changes: -ALBU18HF2 INH; +ASPI-1265 PO; -CEPH250T PO
[2021-03-09 03:20] VITALS: BP 162/64
--- NOTE | 2021-03-09 03:28 | NUR ---
NORMAN - CAREGIVER [phone] (SHE IS WAITING IN THE PARKING LOT IN [place] [employer] [facility])
== END 2021-03-09 03:48 | disposition home or self-care (01) ==
LOC: ER 03:16
DX: Z02.89 Encounter for other administrative examinations (principal); I25.10 Atherosclerotic heart disease of native coronary artery without angina pectoris; I25.2 Old myocardial infarction; J44.9 Chronic obstructive pulmonary disease, unspecified; Z72.89 Other problems related to lifestyle; Z72.0 Tobacco use; Z87.01 Personal history of pneumonia (recurrent); Z90.89 Acquired absence of other organs; Z90.710 Acquired absence of both cervix and uterus; Z95.0 Presence of cardiac pacemaker; Z98.890 Other specified postprocedural states; Z59.0 Homelessness; Z88.8 Allergy status to other drugs, medicaments and biological substances; Z88.0 Allergy status to penicillin; Z88.2 Allergy status to sulfonamides; Z88.5 Allergy status to narcotic agent; Z79.82 Long term (current) use of aspirin; Z79.899 Other long term (current) drug therapy
CPT/HCPCS: 99281; 99406

== ENCOUNTER → 2021-03-10 | Emergency (ER) | payer MEDICARE, MEDICAID ==
[~2021-03-10] VITALS: Ht 149.9 cm; Wt 48.1 kg
[2021-03-10 23:52] VITALS: BP 155/76
== END | disposition home or self-care (01) ==
LOC: ER 23:37
DX: Z02.89 Encounter for other administrative examinations (principal); R53.83 Other fatigue; I25.10 Atherosclerotic heart disease of native coronary artery without angina pectoris; I25.2 Old myocardial infarction; J44.9 Chronic obstructive pulmonary disease, unspecified; F17.210 Nicotine dependence, cigarettes, uncomplicated; Z87.01 Personal history of pneumonia (recurrent); Z90.89 Acquired absence of other organs; Z90.710 Acquired absence of both cervix and uterus; Z95.0 Presence of cardiac pacemaker; Z98.890 Other specified postprocedural states; Z72.89 Other problems related to lifestyle; Z59.0 Homelessness; Z88.0 Allergy status to penicillin; Z88.2 Allergy status to sulfonamides; Z88.5 Allergy status to narcotic agent; Z88.8 Allergy status to other drugs, medicaments and biological substances; Z79.82 Long term (current) use of aspirin; Z79.899 Other long term (current) drug therapy
CPT/HCPCS: 99283

== ENCOUNTER 2021-03-14 04:17 | Emergency (ER) | payer MEDICARE, MEDICAID ==
[~2021-03-14] VITALS: Ht 175.3 cm; Wt 48.0 kg
[2021-03-14 05:14] LABS: CLARITY,URINE CLEAR (Clear); COLOR,URINE YELLOW (Yellow); GLUCOSE, URINE NEGATIVE (Neg); KETONES,URINE NEGATIVE (Neg); LEUKOCYTE ESTERASE ,URINE TRACE (Neg); NITRITES, URINE NEGATIVE (Neg); OCCULT BLOOD,URINE SMALL (Neg); PROTEIN,URINE NEGATIVE (Neg); UROBILINOGEN,URINE 0.2 E.U/dL (0.2-1.0)
[2021-03-14 05:20] LABS: UA COLLECTION TYPE CLN CATCH MIDSTREAM
[2021-03-14 05:22] LABS: BACTERIA,URINE NONE SEEN /HPF (Neg); BASOPHILS # (AUTO) 0.1 X10'3 (0-0.2); BASOPHILS % (AUTO) 1.9 % (0-1); EOSINOPHILS # (AUTO) 0.2 X10'3 (0-0.9); EOSINOPHILS % (AUTO) 3.3 % (0-6); HEMOGLOBIN 12.9 g/dl (12.0-16.0); LYMPHOCYTES # (AUTO) 1.3 X10'3 (1.1-4.8); LYMPHOCYTES % (AUTO) 19.6 % (21-51); MEAN CORPUSCULAR HEMOGLOBIN 25.1 PG (27.0-31.0); MEAN CORPUSCULAR VOLUME 75.9 FL (78-98); MEAN PLATELET VOLUME 7.4 FL (7.4-10.4); MONOCYTES # (AUTO) 0.9 X10'3 (0-0.9); MONOCYTES % (AUTO) 13.3 % (2-12); NEUTROPHILS % (AUTO) 61.9 % (42-75); PLATELET COUNT 221 X10'3 (140-440); RBC,URINE 0-2 /HPF (0-2); RED BLOOD COUNT 5.14 X10'6 (4.20-5.60); RED CELL DISTRIBUTION WIDTH 21.2 % (11.5-14.5); SQUAMOUS EPITHELIAL CELL,UR FEW /LPF (FEW); WBC,URINE 0-4 /HPF (0-4); WHITE BLOOD COUNT 6.5 X10'3 (4.5-11.0)
[2021-03-14 05:34] LABS: ALANINE AMINOTRANSFERASE 12 U/L (12-78); ALBUMIN 3.7 G/DL (3.4-5.0); ALBUMIN/GLOBULIN RATIO 0.9 (1.1-1.5); ALKALINE PHOSPHATASE 99 IU/L (46-116); ANION GAP 8 (8-16); ASPARTATE AMINO TRANSFERASE 18 U/L (10-37); BILIRUBIN,TOTAL 0.4 MG/DL (0.1-1.0); BLOOD UREA NITROGEN 5 MG/DL (7-18); BUN/CREATININE RATIO 8.9 (6.6-38.0); CALCIUM 8.4 MG/DL (8.5-10.1); CHLORIDE 92 MMOL/L (99-107); CREATININE 0.56 MG/DL (0.40-0.90); GLUCOSE 105 MG/DL (70-104); SODIUM 129 MMOL/L (135-145); TOTAL CARBON DIOXIDE 29.4 MMOL/L (24-32); TOTAL PROTEIN 7.8 G/DL (6.4-8.2); eGFR > 90 ML/MIN
[2021-03-14 05:39] VITALS: BP 147/65
--- NOTE | 2021-03-14 05:56 | NUR ---
[facility] [phone] called per MD order. Report filled out and in chart. Spoke with Don. Fax form to [phone]. Form given to US for follow up.
--- NOTE | 2021-03-14 06:06 | NUR ---
Liana Fontanez, [facility]: [phone]
--- NOTE | 2021-03-14 06:11 | NUR ---
Laina phoned to come back in to get patient, updated on [facility] report.
== END 2021-03-14 06:36 | disposition home or self-care (01) ==
LOC: ER 04:18
DX: R42 Dizziness and giddiness (principal); R30.0 Dysuria; F03.90 Unspecified dementia, unspecified severity, without behavioral disturbance, psychotic disturbance, mood disturbance, and anxiety; I25.10 Atherosclerotic heart disease of native coronary artery without angina pectoris; I25.2 Old myocardial infarction; J44.9 Chronic obstructive pulmonary disease, unspecified; F17.200 Nicotine dependence, unspecified, uncomplicated; Z87.01 Personal history of pneumonia (recurrent); Z59.0 Homelessness; Z90.49 Acquired absence of other specified parts of digestive tract; Z95.5 Presence of coronary angioplasty implant and graft; Z90.710 Acquired absence of both cervix and uterus; Z91.041 Radiographic dye allergy status; Z88.0 Allergy status to penicillin; Z88.2 Allergy status to sulfonamides; Z88.8 Allergy status to other drugs, medicaments and biological substances; Z79.82 Long term (current) use of aspirin; Z79.899 Other long term (current) drug therapy
CPT/HCPCS: 71045; 80053; 81001; 85025; 87088; 93005; 99285

== ENCOUNTER 2021-03-16 01:37 | Emergency (ER) | payer MEDICARE, MEDICAID ==
[~2021-03-16] VITALS: Ht 149.9 cm; Wt 46.9 kg
--- NOTE | 2021-03-16 04:45 | NUR ---
HAD PT SIT UP AND SOAK HER FEET TO CLEANSE IN WATER BASIN
--- NOTE | 2021-03-16 05:45 | NUR ---
PT VERY RUDE AND HOSTILE . STOOD UP AND URINATED ALMOST ON MY BODY AMD FACE. PT REFUSED BLOOD DRAW REFUSED TO HAVE ONIMENT APPLIED TO HER FEET MEAGANN TEE AND MEGHNA AT THIS RECORDER REPEATIVELT . AND CHARGE TAO MURRAY . 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 NOTIFIED DR BOSS THAT THE CAREGIVER DID MAKE CONTACT WITH [facility]
[2021-03-16 05:49] VITALS: BP 132/56
--- NOTE | 2021-03-16 06:08 | NUR ---
REFUSED BLOOD DRAW ISAURO
== END 2021-03-16 05:45 | disposition home or self-care (01) ==
LOC: ER 01:37
DX: R21 Rash and other nonspecific skin eruption (principal); R42 Dizziness and giddiness; R11.0 Nausea; I25.10 Atherosclerotic heart disease of native coronary artery without angina pectoris; J44.9 Chronic obstructive pulmonary disease, unspecified; I25.2 Old myocardial infarction; F03.90 Unspecified dementia, unspecified severity, without behavioral disturbance, psychotic disturbance, mood disturbance, and anxiety; F17.200 Nicotine dependence, unspecified, uncomplicated; Z87.01 Personal history of pneumonia (recurrent); Z59.0 Homelessness; Z72.89 Other problems related to lifestyle; Z90.49 Acquired absence of other specified parts of digestive tract; Z90.710 Acquired absence of both cervix and uterus; Z95.5 Presence of coronary angioplasty implant and graft; Z90.89 Acquired absence of other organs; Z91.041 Radiographic dye allergy status; Z88.0 Allergy status to penicillin; Z88.2 Allergy status to sulfonamides; Z88.8 Allergy status to other drugs, medicaments and biological substances; Z91.14 Patient's other noncompliance with medication regimen
CPT/HCPCS: 99282

== ENCOUNTER 2021-03-18 22:57 | Emergency (ER) | payer MEDICARE, MEDICAID ==
[~2021-03-18] VITALS: Ht 157.5 cm; Wt 46.5 kg
[2021-03-18 23:20] VITALS: BP 119/50
[2021-03-19] LABS: BASOPHILS # (AUTO) 0.1 X10'3 (0-0.2); BASOPHILS % (AUTO) 1.7 % (0-1); EOSINOPHILS # (AUTO) 0.2 X10'3 (0-0.9); EOSINOPHILS % (AUTO) 3.7 % (0-6); HEMATOCRIT 35.6 % (35.0-45.0); LYMPHOCYTES # (AUTO) 1.5 X10'3 (1.1-4.8); LYMPHOCYTES % (AUTO) 27.6 % (21-51); MEAN CORPUSCULAR HEMOGLOBIN 25.5 PG (27.0-31.0); MEAN CORPUSCULAR HGB CONC 33.6 g/dL (33.0-36.5); MEAN CORPUSCULAR VOLUME 75.8 FL (78-98); MEAN PLATELET VOLUME 7.4 FL (7.4-10.4); MONOCYTES # (AUTO) 0.9 X10'3 (0-0.9); MONOCYTES % (AUTO) 17.1 % (2-12); NEUTROPHILS # (AUTO) 2.7 X10'3 (1.8-7.7); NEUTROPHILS % (AUTO) 49.9 % (42-75); PLATELET COUNT 209 X10'3 (140-440); RED CELL DISTRIBUTION WIDTH 21.4 % (11.5-14.5); WHITE BLOOD COUNT 5.5 X10'3 (4.5-11.0)
[2021-03-19 00:18] LABS: ALANINE AMINOTRANSFERASE 12 U/L (12-78); ALBUMIN 3.6 G/DL (3.4-5.0); ALBUMIN/GLOBULIN RATIO 0.9 (1.1-1.5); ALKALINE PHOSPHATASE 95 IU/L (46-116); ANION GAP 7 (8-16); ASPARTATE AMINO TRANSFERASE 19 U/L (10-37); BILIRUBIN,TOTAL 0.5 MG/DL (0.1-1.0); BLOOD UREA NITROGEN 5 MG/DL (7-18); CALCIUM 8.1 MG/DL (8.5-10.1); CHLORIDE 88 MMOL/L (99-107); GLUCOSE 85 MG/DL (70-104); POTASSIUM 4.1 MMOL/L (3.5-5.1); SODIUM 123 MMOL/L (135-145); TOTAL CARBON DIOXIDE 27.7 MMOL/L (24-32); TOTAL PROTEIN 7.5 G/DL (6.4-8.2); eGFR > 90 ML/MIN
[2021-03-19] MEDS ORDERED: folic acid 1mg tablet PO ONE (03:50)
[2021-03-19] MEDS ORDERED: thiamine 100mg tablet PO ONE (03:50)
[2021-03-19] MEDS ORDERED: normal saline 1000ML IV soln IVB ONE (03:50)
[2021-03-19] MEDS ORDERED: thiamine inj. 100 MG in normal saline 100ml IV soln 100 ML IV ONE (03:50)
[2021-03-19] MEDS: thiamine 100mg/ml 2ml inj. IV ONE ×2 (04:35→04:39)
--- NOTE | 2021-03-19 04:39 | NUR ---
Patient refused Thiamin IM but took PO medications.
[2021-03-19 04:48] LABS: URINE AMPHETAMINE SCREEN NEGATIVE (Neg); URINE BARBITUATE SCREEN NEGATIVE (Neg); URINE BENZODIAZEPINES SCREEN NEGATIVE (Neg); URINE CANNABINOID SCREEN NEGATIVE (Neg); URINE COCAINE SCREEN NEGATIVE (Neg); URINE METHADONE SCREEN NEGATIVE (Neg); URINE OPIATE SCREEN NEGATIVE (Neg); URINE PHENCYCLIDINE SCREEN NEGATIVE (Neg)
[2021-03-19 04:49] LABS: CLARITY,URINE CLEAR (Clear); COLOR,URINE YELLOW (Yellow); GLUCOSE, URINE NEGATIVE (Neg); KETONES,URINE NEGATIVE (Neg); LEUKOCYTE ESTERASE ,URINE NEGATIVE (Neg); NITRITES, URINE NEGATIVE (Neg); OCCULT BLOOD,URINE SMALL (Neg); PROTEIN,URINE NEGATIVE (Neg); UROBILINOGEN,URINE 0.2 E.U/dL (0.2-1.0)
[2021-03-19 04:50] LABS: UA COLLECTION TYPE CLN CATCH MIDSTREAM
[2021-03-19 04:53] LABS: ETHANOL 0.056 GM/DL (0.0-0.010)
[2021-03-19 05:10] LABS: BACTERIA,URINE NONE SEEN /HPF (Neg); MUCUS STRANDS NONE SEEN /LPF (Neg); SQUAMOUS EPITHELIAL CELL,UR FEW /LPF (FEW); WBC,URINE 0-4 /HPF (0-4)
[2021-03-19] MEDS ORDERED: magnesium oxide 400mg tablet PO ONE (05:50)
[2021-03-19] MEDS ORDERED: FOLI0.4T6 PO (05:50)
[2021-03-19] MEDS ORDERED: THIA50TA10 PO (05:50)
[2021-03-19 07:06] LABS: TOTAL CELLS COUNTED 100
[2021-03-19 07:07] LABS: PLATELET ESTIMATE NORMAL
[2021-03-19 07:08] LABS: ANISOCYTOSIS 3+; MICROCYTOSIS 1+
== END 2021-03-19 07:02 | disposition home or self-care (01) ==
LOC: ER 22:59
DX: F10.129 Alcohol abuse with intoxication, unspecified (principal); R53.1 Weakness; E87.1 Hypo-osmolality and hyponatremia; R53.83 Other fatigue; I25.10 Atherosclerotic heart disease of native coronary artery without angina pectoris; I25.2 Old myocardial infarction; J44.9 Chronic obstructive pulmonary disease, unspecified; F17.210 Nicotine dependence, cigarettes, uncomplicated; Z87.01 Personal history of pneumonia (recurrent); Z90.89 Acquired absence of other organs; Z95.0 Presence of cardiac pacemaker; Z90.710 Acquired absence of both cervix and uterus; Z98.890 Other specified postprocedural states; Z72.89 Other problems related to lifestyle; Z59.0 Homelessness; Z88.0 Allergy status to penicillin; Z88.2 Allergy status to sulfonamides; Z88.5 Allergy status to narcotic agent; Z88.8 Allergy status to other drugs, medicaments and biological substances; Z79.82 Long term (current) use of aspirin; Z79.899 Other long term (current) drug therapy; Y90.0 Blood alcohol level of less than 20 mg/100 ml
CPT/HCPCS: 36415; 71045; 80053; 80305; 80320; 81001; 83880; 84484; 85007; 85025; 93005; 99285; J3411

== ENCOUNTER 2021-03-20 00:20 | Emergency (ER) | payer MEDICARE, MEDICAID ==
[~2021-03-20] VITALS: Ht 149.9 cm; Wt 46.5 kg
[~2021-03-20 00:20] MED LIST changes: +FOLI0.4T6 PO; +THIA50TA10 PO
[2021-03-20 00:22] VITALS: BP 125/46
--- NOTE | 2021-03-20 01:06 | NUR ---
NORMAN - CAREGIVER [phone] [address] IN [facility]
== END 2021-03-20 03:00 | disposition home or self-care (01) ==
LOC: ER 00:20
DX: F10.20 Alcohol dependence, uncomplicated (principal); Z00.00 Encounter for general adult medical examination without abnormal findings; F03.90 Unspecified dementia, unspecified severity, without behavioral disturbance, psychotic disturbance, mood disturbance, and anxiety; I25.10 Atherosclerotic heart disease of native coronary artery without angina pectoris; I25.2 Old myocardial infarction; J44.9 Chronic obstructive pulmonary disease, unspecified; Z87.01 Personal history of pneumonia (recurrent); Z90.49 Acquired absence of other specified parts of digestive tract; Z90.710 Acquired absence of both cervix and uterus; Z95.5 Presence of coronary angioplasty implant and graft; Z59.0 Homelessness; Z91.040 Latex allergy status; Z88.0 Allergy status to penicillin; Z88.2 Allergy status to sulfonamides; Z88.8 Allergy status to other drugs, medicaments and biological substances; Z79.82 Long term (current) use of aspirin; Z79.899 Other long term (current) drug therapy
CPT/HCPCS: 99281

== ENCOUNTER 2021-03-21 22:40 | Emergency (ER) | payer MEDICARE, MEDICAID ==
[~2021-03-21] VITALS: Ht 149.9 cm; Wt 46.9 kg
[2021-03-21 22:53] VITALS: BP 124/57
[2021-03-22] MEDS ORDERED: ERYT1OIN6 LEFTEYE (00:33)
[2021-03-22] MEDS ORDERED: erythromycin ophthalmic ointment 1gm tube LEFTEYE ONE (00:35)
== END 2021-03-22 00:52 | disposition home or self-care (01) ==
LOC: ER 22:40
DX: H00.016 Hordeolum externum left eye, unspecified eyelid (principal); F03.90 Unspecified dementia, unspecified severity, without behavioral disturbance, psychotic disturbance, mood disturbance, and anxiety; I25.10 Atherosclerotic heart disease of native coronary artery without angina pectoris; I25.2 Old myocardial infarction; J44.9 Chronic obstructive pulmonary disease, unspecified; Z87.01 Personal history of pneumonia (recurrent); Z90.49 Acquired absence of other specified parts of digestive tract; Z90.710 Acquired absence of both cervix and uterus; Z95.5 Presence of coronary angioplasty implant and graft; Z90.89 Acquired absence of other organs; Z72.89 Other problems related to lifestyle; Z59.0 Homelessness; Z88.0 Allergy status to penicillin; Z88.2 Allergy status to sulfonamides; Z88.8 Allergy status to other drugs, medicaments and biological substances; Z91.041 Radiographic dye allergy status; Z79.82 Long term (current) use of aspirin; Z79.899 Other long term (current) drug therapy
CPT/HCPCS: 99284

== ENCOUNTER → 2021-04-04 | Emergency (ER) | payer MEDICARE, MEDICAID ==
[~2021-04-04] MED LIST changes: +ERYT1OIN6 LEFTEYE
== END | disposition left against medical advice (07) ==
LOC: ER 19:21
DX: R06.00 Dyspnea, unspecified (principal); Z53.21 Procedure and treatment not carried out due to patient leaving prior to being seen by health care provider

== ENCOUNTER 2021-04-10 12:22 | Emergency (ER) | payer MEDICARE, MEDICAID | END 2021-04-10 16:41 | disposition left against medical advice (07) | LOC: ER 12:23 | DX: R53.83 Other fatigue (principal); Z53.21 Procedure and treatment not carried out due to patient leaving prior to being seen by health care provider ==

== ENCOUNTER 2021-04-10 18:24 | Emergency (ER) | payer MEDICARE, MEDICAID ==
[~2021-04-10] VITALS: Ht 149.9 cm; Wt 48.2 kg
[2021-04-10] MEDS ORDERED: aspirin 81mg tab.chew PO ONE ×2 (18:45→19:15)
[2021-04-10 19:19] LABS: BASOPHILS # (AUTO) 0.1 X10'3 (0-0.2); BASOPHILS % (AUTO) 0.8 % (0-1); EOSINOPHILS # (AUTO) 0.3 X10'3 (0-0.9); EOSINOPHILS % (AUTO) 2.9 % (0-6); HEMATOCRIT 38.1 % (35.0-45.0); LYMPHOCYTES # (AUTO) 1.7 X10'3 (1.1-4.8); LYMPHOCYTES % (AUTO) 19.1 % (21-51); MEAN CORPUSCULAR HEMOGLOBIN 26.7 PG (27.0-31.0); MEAN CORPUSCULAR HGB CONC 34.1 g/dL (33.0-36.5); MEAN CORPUSCULAR VOLUME 78.1 FL (78-98); MEAN PLATELET VOLUME 7.2 FL (7.4-10.4); MONOCYTES % (AUTO) 10.8 % (2-12); NEUTROPHILS % (AUTO) 66.4 % (42-75); PLATELET COUNT 229 X10'3 (140-440); RED BLOOD COUNT 4.88 X10'6 (4.20-5.60); RED CELL DISTRIBUTION WIDTH 21.5 % (11.5-14.5)
[2021-04-10 19:20] LABS: ALANINE AMINOTRANSFERASE 10 U/L (12-78); ALBUMIN 3.7 G/DL (3.4-5.0); ALBUMIN/GLOBULIN RATIO 0.8 (1.1-1.5); ALKALINE PHOSPHATASE 80 IU/L (46-116); ANION GAP 9 (8-16); ASPARTATE AMINO TRANSFERASE 14 U/L (10-37); BILIRUBIN,TOTAL 0.8 MG/DL (0.1-1.0); BLOOD UREA NITROGEN 7 MG/DL (7-18); BUN/CREATININE RATIO 11.7 (6.6-38.0); CALCIUM 8.6 MG/DL (8.5-10.1); CHLORIDE 96 MMOL/L (99-107); GLUCOSE 98 MG/DL (70-104); POTASSIUM 3.3 MMOL/L (3.5-5.1); SODIUM 133 MMOL/L (135-145); TOTAL CARBON DIOXIDE 28.3 MMOL/L (24-32); TOTAL PROTEIN 8.1 G/DL (6.4-8.2); eGFR > 90 ML/MIN
[2021-04-10 19:27] LABS: MAGNESIUM 1.8 MG/DL (1.5-2.4)
[2021-04-10 19:35] VITALS: BP 159/81
--- NOTE | 2021-04-10 20:13 | NUR ---
patient climbing out of bed and leaving her room. Pt assisted to the bathroom, then back to bed. Bed rails up, pt instructed to ask for assistance when ambulating
--- NOTE | 2021-04-10 20:47 | NUR ---
Patient climbs out of bed at will. Pt is reoriented to safety, but is not compliant. Pt removes monitor at will.
[2021-04-10 20:59] LABS: ANISOCYTOSIS 3+; PLATELET ESTIMATE NORMAL
[2021-04-10 21:00] LABS: MICROCYTOSIS 1+; TARGET CELLS FEW
[2021-04-10] MEDS ORDERED: furosemide 10 MG/1 ML 10ml inj IV ONE (21:50)
[2021-04-10] MEDS ORDERED: folic acid 1mg/0.2ml inj IV ONE (21:50)
[2021-04-10] MEDS ORDERED: thiamine 100mg/ml 2ml inj. IM ONE (21:50)
[2021-04-10] MEDS ORDERED: thiamine 100mg tablet PO ONE (22:20)
[2021-04-10] MEDS ORDERED: folic acid 1mg tablet PO ONE (22:20)
[2021-04-10] MEDS ORDERED: furosemide 20MG tablet PO ONE (22:25)
== END 2021-04-10 22:36 | disposition home or self-care (01) ==
LOC: ER 18:25
DX: R07.89 Other chest pain (principal); R06.02 Shortness of breath; I25.10 Atherosclerotic heart disease of native coronary artery without angina pectoris; I25.2 Old myocardial infarction; J44.9 Chronic obstructive pulmonary disease, unspecified; F03.90 Unspecified dementia, unspecified severity, without behavioral disturbance, psychotic disturbance, mood disturbance, and anxiety; Z90.49 Acquired absence of other specified parts of digestive tract; Z90.710 Acquired absence of both cervix and uterus; Z95.0 Presence of cardiac pacemaker; Z90.89 Acquired absence of other organs; Z59.0 Homelessness; Z90.722 Acquired absence of ovaries, bilateral; Z88.0 Allergy status to penicillin; Z88.6 Allergy status to analgesic agent; Z88.2 Allergy status to sulfonamides; Z88.5 Allergy status to narcotic agent; Z79.82 Long term (current) use of aspirin; Z79.899 Other long term (current) drug therapy
CPT/HCPCS: 36415; 71045; 80053; 83735; 83880; 84484; 85008; 85025; 93005; 99285

== ENCOUNTER 2021-04-16 14:44 | Emergency (ER) | payer MEDICARE, MEDICAID ==
[~2021-04-16] VITALS: Ht 149.9 cm; Wt 46.8 kg
[2021-04-16 14:48] VITALS: BP 168/76
[2021-04-17] MEDS ORDERED: CEPH-585 PO (11:50)
[2021-04-17] MEDS ORDERED: ONDA4TAB6 PO (20:16)
== END 2021-04-16 22:42 | disposition left against medical advice (07) ==
LOC: ER 14:45
DX: R10.9 Unspecified abdominal pain (principal); Z53.21 Procedure and treatment not carried out due to patient leaving prior to being seen by health care provider

== ENCOUNTER 2021-04-17 08:30 | Emergency (ER) | payer MEDICARE, MEDICAID ==
[~2021-04-17] VITALS: Ht 149.9 cm; Wt 44.0 kg
[2021-04-17] MEDS ORDERED: ondansetron/PF 4mg/2ml inj IV ONE (09:55)
[2021-04-17] MEDS ORDERED: normal saline 1000ML IV soln IVB ONE (09:55)
[2021-04-17 10:54] LABS: BASOPHILS # (AUTO) 0.1 X10'3 (0-0.2); EOSINOPHILS # (AUTO) 0.2 X10'3 (0-0.9); EOSINOPHILS % (AUTO) 3.2 % (0-6); HEMATOCRIT 36.6 % (35.0-45.0); HEMOGLOBIN 12.4 g/dl (12.0-16.0); LYMPHOCYTES # (AUTO) 1.3 X10'3 (1.1-4.8); LYMPHOCYTES % (AUTO) 20.8 % (21-51); MEAN CORPUSCULAR VOLUME 79.4 FL (78-98); MEAN PLATELET VOLUME 7.2 FL (7.4-10.4); MONOCYTES # (AUTO) 0.7 X10'3 (0-0.9); MONOCYTES % (AUTO) 10.9 % (2-12); NEUTROPHILS % (AUTO) 63.1 % (42-75); PLATELET COUNT 209 X10'3 (140-440); RED BLOOD COUNT 4.61 X10'6 (4.20-5.60); RED CELL DISTRIBUTION WIDTH 21.5 % (11.5-14.5); WHITE BLOOD COUNT 6.3 X10'3 (4.5-11.0)
[2021-04-17 11:03] LABS: CLARITY,URINE SLIGHTLY CLOUDY (Clear); COLOR,URINE YELLOW (Yellow); GLUCOSE, URINE 100 mg/dl (Neg); KETONES,URINE NEGATIVE (Neg); LEUKOCYTE ESTERASE ,URINE MODERATE (Neg); NITRITES, URINE NEGATIVE (Neg); OCCULT BLOOD,URINE MODERATE (Neg); PH,URINE 5.5 (4.8-8.0); PROTEIN,URINE NEGATIVE (Neg)
[2021-04-17 11:04] LABS: UA COLLECTION TYPE CLN CATCH MIDSTREAM
[2021-04-17 11:07] LABS: ALANINE AMINOTRANSFERASE 7 U/L (12-78); ALBUMIN 3.5 G/DL (3.4-5.0); ALBUMIN/GLOBULIN RATIO 0.9 (1.1-1.5); ALKALINE PHOSPHATASE 78 IU/L (46-116); ANION GAP 3 (8-16); ASPARTATE AMINO TRANSFERASE 19 U/L (10-37); BILIRUBIN,TOTAL 0.5 MG/DL (0.1-1.0); BLOOD UREA NITROGEN 5 MG/DL (7-18); BUN/CREATININE RATIO 10.2 (6.6-38.0); CALCIUM 8.7 MG/DL (8.5-10.1); CHLORIDE 98 MMOL/L (99-107); CREATININE 0.49 MG/DL (0.40-0.90); ETHANOL < 0.010 GM/DL (0.0-0.010); GLUCOSE 76 MG/DL (70-104); LIPASE 61 U/L (73-393); POTASSIUM 3.9 MMOL/L (3.5-5.1); SODIUM 133 MMOL/L (135-145); TOTAL CARBON DIOXIDE 31.7 MMOL/L (24-32); TOTAL PROTEIN 7.4 G/DL (6.4-8.2); eGFR > 90 ML/MIN
[2021-04-17 11:12] LABS: BACTERIA,URINE 1+ /HPF (Neg); CAL OXALATE CRYSTALS FEW /HPF (NEGATIVE); MUCUS STRANDS FEW /LPF (Neg); RENAL CELLS, URINE FEW /HPF; SQUAMOUS EPITHELIAL CELL,UR MODERATE /LPF (FEW)
[2021-04-17 11:17] LABS: URINE AMPHETAMINE SCREEN NEGATIVE (Neg); URINE BARBITUATE SCREEN NEGATIVE (Neg); URINE BENZODIAZEPINES SCREEN NEGATIVE (Neg); URINE CANNABINOID SCREEN NEGATIVE (Neg); URINE COCAINE SCREEN NEGATIVE (Neg); URINE METHADONE SCREEN NEGATIVE (Neg); URINE OPIATE SCREEN NEGATIVE (Neg); URINE PHENCYCLIDINE SCREEN NEGATIVE (Neg)
[2021-04-17 11:22] LABS: ANISOCYTOSIS 3+; BURR CELLS 1+; HYPOCHROMASIA 1+; MICROCYTOSIS 1+; PLATELET ESTIMATE NORMAL; TARGET CELLS FEW
[2021-04-17 11:42] VITALS: BP 140/123
[2021-04-17] MEDS ORDERED: CEPH-585 PO (11:50)
[2021-04-17] MEDS ORDERED: ONDA4TAB6 PO (20:16)
== END 2021-04-17 12:10 | disposition home or self-care (01) ==
LOC: ER 08:31
DX: R11.0 Nausea (principal); R19.7 Diarrhea, unspecified; N39.0 Urinary tract infection, site not specified; F03.90 Unspecified dementia, unspecified severity, without behavioral disturbance, psychotic disturbance, mood disturbance, and anxiety; I25.10 Atherosclerotic heart disease of native coronary artery without angina pectoris; I25.2 Old myocardial infarction; J44.9 Chronic obstructive pulmonary disease, unspecified; Z87.01 Personal history of pneumonia (recurrent); Z90.49 Acquired absence of other specified parts of digestive tract; Z90.710 Acquired absence of both cervix and uterus; Z95.0 Presence of cardiac pacemaker; Z59.0 Homelessness; Z88.0 Allergy status to penicillin; Z88.2 Allergy status to sulfonamides; Z91.041 Radiographic dye allergy status; Z79.82 Long term (current) use of aspirin; Z79.2 Long term (current) use of antibiotics; Z79.899 Other long term (current) drug therapy
CPT/HCPCS: 36415; 80053; 80305; 80320; 81001; 83690; 85008; 85025; 87088; 93005; 96361; 96374; 99284; J2405; J7030

== ENCOUNTER 2021-04-17 16:51 | Emergency (ER) | payer MEDICARE, MEDICAID ==
[~2021-04-17] VITALS: Ht 149.9 cm; Wt 44.0 kg
[~2021-04-17 16:51] MED LIST changes: +CEPH-585 PO
[2021-04-17 17:09] VITALS: BP 141/81
[2021-04-17] MEDS ORDERED: ONDA4TAB6 PO (20:16)
== END 2021-04-17 20:50 | disposition home or self-care (01) ==
LOC: ER 16:52
DX: R10.9 Unspecified abdominal pain (principal); R11.2 Nausea with vomiting, unspecified; F03.90 Unspecified dementia, unspecified severity, without behavioral disturbance, psychotic disturbance, mood disturbance, and anxiety; I25.10 Atherosclerotic heart disease of native coronary artery without angina pectoris; I25.2 Old myocardial infarction; J44.9 Chronic obstructive pulmonary disease, unspecified; Z87.01 Personal history of pneumonia (recurrent); Z90.49 Acquired absence of other specified parts of digestive tract; Z90.710 Acquired absence of both cervix and uterus; Z95.1 Presence of aortocoronary bypass graft; Z59.0 Homelessness; Z91.041 Radiographic dye allergy status; Z88.0 Allergy status to penicillin; Z88.2 Allergy status to sulfonamides; Z88.8 Allergy status to other drugs, medicaments and biological substances; Z72.89 Other problems related to lifestyle
CPT/HCPCS: 99283

== ENCOUNTER 2021-05-01 15:09 | Emergency (ER) | payer MEDICARE, MEDICAID ==
[~2021-05-01] VITALS: Ht 152.4 cm; Wt 47.3 kg
[~2021-05-01 15:09] MED LIST changes: -CEPH-585 PO; -ERYT1OIN6 LEFTEYE; -FOLI0.4T6 PO; +ONDA4TAB6 PO
[2021-05-01 15:56] VITALS: BP 156/73
== END 2021-05-01 20:09 | disposition left against medical advice (07) ==
LOC: ER 15:10
DX: R10.9 Unspecified abdominal pain (principal); Z53.21 Procedure and treatment not carried out due to patient leaving prior to being seen by health care provider

== ENCOUNTER 2021-05-07 15:43 | Emergency (ER) | payer MEDICARE, MEDICAID ==
--- NOTE | 2021-05-07 16:17 | NUR ---
PER ER REG PT AND HER CAREGIVER DECIDED NOT TO WAIT. STATED THEY HAD WAITED LONG ENOUGH
== END 2021-05-07 16:30 | disposition left against medical advice (07) ==
LOC: ER 15:43
DX: R10.9 Unspecified abdominal pain (principal); Z53.21 Procedure and treatment not carried out due to patient leaving prior to being seen by health care provider

== ENCOUNTER 2021-05-22 00:46 | Emergency (ER) | payer MEDICARE, MEDICAID ==
[~2021-05-22] VITALS: Ht 149.9 cm; Wt 46.3 kg
[2021-05-22 00:51] VITALS: BP 146/82
[2021-05-22] MEDS ORDERED: ACET-895 PO ×2 (15:12→15:14)
== END 2021-05-22 05:57 | disposition left against medical advice (07) ==
LOC: ER 00:46
DX: R06.02 Shortness of breath (principal); Z53.21 Procedure and treatment not carried out due to patient leaving prior to being seen by health care provider
CPT/HCPCS: 93005; 99283

== ENCOUNTER 2021-05-22 12:35 | Emergency (ER) | payer MEDICARE, MEDICAID ==
[~2021-05-22] VITALS: Ht 149.9 cm; Wt 46.4 kg
[2021-05-22 12:55] VITALS: BP 161/79
[2021-05-22] MEDS ORDERED: acetaminophen 325mg tablet PO ONE (15:10)
[2021-05-22] MEDS ORDERED: ACET-895 PO ×2 (15:12→15:14)
== END 2021-05-22 15:40 | disposition home or self-care (01) ==
LOC: ER 12:36
DX: M79.604 Pain in right leg (principal); F03.90 Unspecified dementia, unspecified severity, without behavioral disturbance, psychotic disturbance, mood disturbance, and anxiety; I25.10 Atherosclerotic heart disease of native coronary artery without angina pectoris; I25.2 Old myocardial infarction; J44.9 Chronic obstructive pulmonary disease, unspecified; Z79.01 Long term (current) use of anticoagulants; Z90.49 Acquired absence of other specified parts of digestive tract; Z90.710 Acquired absence of both cervix and uterus; Z95.0 Presence of cardiac pacemaker; Z90.89 Acquired absence of other organs; Z72.89 Other problems related to lifestyle; Z59.0 Homelessness; Z79.82 Long term (current) use of aspirin; Z79.899 Other long term (current) drug therapy; Z88.2 Allergy status to sulfonamides; Z88.0 Allergy status to penicillin; Z88.8 Allergy status to other drugs, medicaments and biological substances; Z91.041 Radiographic dye allergy status
CPT/HCPCS: 73590; 99283

== ENCOUNTER 2021-05-23 03:04 | Emergency (ER) | payer MEDICARE, MEDICAID ==
[~2021-05-23 03:04] MED LIST changes: +ACET-895 PO
== END 2021-05-23 03:37 | disposition home or self-care (01) ==
LOC: ER 03:05
DX: R15.9 Full incontinence of feces (principal); Z53.21 Procedure and treatment not carried out due to patient leaving prior to being seen by health care provider

== ENCOUNTER 2021-05-28 18:32 | Emergency (ER) | payer MEDICARE, MEDICAID ==
[~2021-05-28] VITALS: Ht 154.9 cm; Wt 55.0 kg
[2021-05-28 19:18] VITALS: BP 171/85
== END 2021-05-28 22:30 | disposition left against medical advice (07) ==
LOC: ER 18:35
DX: J06.9 Acute upper respiratory infection, unspecified (principal); Z53.21 Procedure and treatment not carried out due to patient leaving prior to being seen by health care provider
CPT/HCPCS: 99284

== ENCOUNTER 2021-05-29 14:38 | Emergency (ER) | payer MEDICARE, MEDICAID ==
[~2021-05-29] VITALS: Ht 149.9 cm; Wt 24.0 kg
[2021-05-29] MEDS ORDERED: ipratropium/albuterol 3ml nebule NEB ONE (15:45)
[2021-05-29 16:25] LABS: BASOPHILS % (AUTO) 0.2 % (0-1); EOSINOPHILS # (AUTO) 0.2 X10'3 (0-0.9); EOSINOPHILS % (AUTO) 3.1 % (0-6); HEMATOCRIT 37.5 % (35.0-45.0); HEMOGLOBIN 12.8 g/dl (12.0-16.0); LYMPHOCYTES # (AUTO) 1.4 X10'3 (1.1-4.8); LYMPHOCYTES % (AUTO) 23.5 % (21-51); MEAN CORPUSCULAR HEMOGLOBIN 29.2 PG (27.0-31.0); MEAN CORPUSCULAR VOLUME 85.7 FL (78-98); MONOCYTES # (AUTO) 0.7 X10'3 (0-0.9); MONOCYTES % (AUTO) 11.8 % (2-12); NEUTROPHILS # (AUTO) 3.7 X10'3 (1.8-7.7); NEUTROPHILS % (AUTO) 61.4 % (42-75); PLATELET COUNT 193 X10'3 (140-440); RED BLOOD COUNT 4.38 X10'6 (4.20-5.60); WHITE BLOOD COUNT 6.1 X10'3 (4.5-11.0)
[2021-05-29 16:35] LABS: ALANINE AMINOTRANSFERASE 9 U/L (12-78); ALBUMIN 3.9 G/DL (3.4-5.0); ALBUMIN/GLOBULIN RATIO 1.1 (1.1-1.5); ALKALINE PHOSPHATASE 97 IU/L (46-116); ANION GAP 8 (8-16); ASPARTATE AMINO TRANSFERASE 14 U/L (10-37); BILIRUBIN,TOTAL 0.6 MG/DL (0.1-1.0); BLOOD UREA NITROGEN 4 MG/DL (7-18); BUN/CREATININE RATIO 7.5 (6.6-38.0); CALCIUM 8.4 MG/DL (8.5-10.1); CHLORIDE 94 MMOL/L (99-107); CREATININE 0.53 MG/DL (0.40-0.90); GLUCOSE 123 MG/DL (70-104); SODIUM 129 MMOL/L (135-145); TOTAL PROTEIN 7.6 G/DL (6.4-8.2); eGFR > 90 ML/MIN
[2021-05-29] MEDS ORDERED: methylPREDNISolone sod succ 125mg/2ml vial IV ONE (17:00)
[2021-05-29] MEDS ORDERED: predniSONE 20 mg tablet PO ONE (18:10)
[2021-05-29 18:19] VITALS: BP 151/86
== END 2021-05-29 18:23 | disposition home or self-care (01) ==
LOC: ER 14:39
DX: J44.1 Chronic obstructive pulmonary disease with (acute) exacerbation (principal); I50.9 Heart failure, unspecified; E87.1 Hypo-osmolality and hyponatremia; R07.89 Other chest pain; I25.10 Atherosclerotic heart disease of native coronary artery without angina pectoris; I25.2 Old myocardial infarction; Z90.710 Acquired absence of both cervix and uterus; Z90.49 Acquired absence of other specified parts of digestive tract; Z59.0 Homelessness; Z88.0 Allergy status to penicillin; Z88.2 Allergy status to sulfonamides; Z88.5 Allergy status to narcotic agent; Z79.82 Long term (current) use of aspirin; Z79.899 Other long term (current) drug therapy
CPT/HCPCS: 36415; 71045; 80053; 83880; 84484; 85025; 93005; 99285; J7512; 94760

== ENCOUNTER 2021-05-29 21:41 | Emergency (ER) | payer MEDICARE, MEDICAID ==
[~2021-05-29] VITALS: Ht 149.9 cm; Wt 44.0 kg
[2021-05-29] MEDS ORDERED: aspirin 81mg tab.chew PO ONE (22:00)
[2021-05-29 22:09] VITALS: BP 146/60
== END 2021-05-30 00:22 | disposition left against medical advice (07) ==
LOC: ER 21:42
DX: R06.02 Shortness of breath (principal); R07.89 Other chest pain; Z53.21 Procedure and treatment not carried out due to patient leaving prior to being seen by health care provider
CPT/HCPCS: 93005

== ENCOUNTER 2021-05-30 19:55 | Emergency (ER) | payer MEDICARE, MEDICAID ==
[~2021-05-30] VITALS: Ht 149.9 cm; Wt 48.2 kg
[2021-05-30 21:41] VITALS: BP 143/90
--- NOTE | 2021-05-30 22:42 | NUR ---
dr mcclendon at bedside and d/c pt before blood or blood bank technician. pt seen and d/c earlier today.
--- NOTE | 2021-05-30 22:49 | NUR ---
called caregiver allan for pt transportation home. caregiver to pickup pt from lobby
== END 2021-05-30 22:53 | disposition home or self-care (01) ==
LOC: ER 19:56
DX: R07.89 Other chest pain (principal); I25.10 Atherosclerotic heart disease of native coronary artery without angina pectoris; I25.2 Old myocardial infarction; J44.9 Chronic obstructive pulmonary disease, unspecified; Z90.49 Acquired absence of other specified parts of digestive tract; Z90.710 Acquired absence of both cervix and uterus; Z59.0 Homelessness; Z95.0 Presence of cardiac pacemaker; Z88.0 Allergy status to penicillin; Z88.2 Allergy status to sulfonamides; Z79.82 Long term (current) use of aspirin; Z79.899 Other long term (current) drug therapy
CPT/HCPCS: 36415; 71045; 80053; 83880; 84484; 85025; 93005; 99283

== ENCOUNTER 2021-06-03 15:29 | Emergency (ER) | payer MEDICARE, MEDICAID ==
[~2021-06-03] VITALS: Ht 149.9 cm; Wt 43.8 kg
[2021-06-03 16:28] LABS: ALANINE AMINOTRANSFERASE 14 U/L (12-78); ALBUMIN 3.8 G/DL (3.4-5.0); ALKALINE PHOSPHATASE 79 IU/L (46-116); ANION GAP 7 (8-16); ASPARTATE AMINO TRANSFERASE 21 U/L (10-37); BILIRUBIN,TOTAL 0.4 MG/DL (0.1-1.0); BLOOD UREA NITROGEN 5 MG/DL (7-18); BUN/CREATININE RATIO 9.1 (6.6-38.0); CHLORIDE 94 MMOL/L (99-107); CREATININE 0.55 MG/DL (0.40-0.90); GLUCOSE 114 MG/DL (70-104); POTASSIUM 3.4 MMOL/L (3.5-5.1); SODIUM 128 MMOL/L (135-145); TOTAL CARBON DIOXIDE 27.1 MMOL/L (24-32); TOTAL PROTEIN 7.6 G/DL (6.4-8.2); eGFR > 90 ML/MIN
[2021-06-03 16:31] LABS: BASOPHILS % (AUTO) 0.7 % (0-1); EOSINOPHILS # (AUTO) 0.2 X10'3 (0-0.9); EOSINOPHILS % (AUTO) 3.2 % (0-6); HEMATOCRIT 36.9 % (35.0-45.0); HEMOGLOBIN 12.4 g/dl (12.0-16.0); LYMPHOCYTES # (AUTO) 1.8 X10'3 (1.1-4.8); LYMPHOCYTES % (AUTO) 26.5 % (21-51); MEAN CORPUSCULAR HEMOGLOBIN 29.1 PG (27.0-31.0); MEAN CORPUSCULAR HGB CONC 33.7 g/dL (33.0-36.5); MEAN CORPUSCULAR VOLUME 86.2 FL (78-98); MEAN PLATELET VOLUME 7.5 FL (7.4-10.4); MONOCYTES # (AUTO) 0.7 X10'3 (0-0.9); MONOCYTES % (AUTO) 10.4 % (2-12); NEUTROPHILS % (AUTO) 59.2 % (42-75); PLATELET COUNT 208 X10'3 (140-440); RED BLOOD COUNT 4.28 X10'6 (4.20-5.60); RED CELL DISTRIBUTION WIDTH 17.5 % (11.5-14.5); WHITE BLOOD COUNT 6.7 X10'3 (4.5-11.0)
[2021-06-03 17:38] VITALS: BP 161/76
[2021-06-03] MEDS ORDERED: normal saline 1000ML IV soln IVB ONE (17:45)
--- NOTE | 2021-06-03 17:46 | NUR ---
PT REPORTS THAT SHE WANTS TO LEAVE. SHE IS ALSO REFUSING AN IV AT THIS TIME.
--- NOTE | 2021-06-03 17:56 | NUR ---
Attempted to explain to pt that she is dehydrated and needs IV fluids. Pt stating that she is leaving. Ambulated out of dept with [facility]. PA notified.
== END 2021-06-03 17:58 | disposition left against medical advice (07) ==
LOC: ER 15:30
DX: E87.1 Hypo-osmolality and hyponatremia (principal); R06.02 Shortness of breath; I50.9 Heart failure, unspecified; I25.10 Atherosclerotic heart disease of native coronary artery without angina pectoris; I25.2 Old myocardial infarction; J44.9 Chronic obstructive pulmonary disease, unspecified; Z87.01 Personal history of pneumonia (recurrent); Z90.89 Acquired absence of other organs; Z90.710 Acquired absence of both cervix and uterus; Z95.0 Presence of cardiac pacemaker; Z72.89 Other problems related to lifestyle; Z59.0 Homelessness; Z88.0 Allergy status to penicillin; Z88.2 Allergy status to sulfonamides; Z88.5 Allergy status to narcotic agent; Z88.8 Allergy status to other drugs, medicaments and biological substances; Z79.82 Long term (current) use of aspirin; Z79.899 Other long term (current) drug therapy
CPT/HCPCS: 36415; 71045; 80053; 83880; 84484; 85025; 93005; 99285

== ENCOUNTER 2021-06-03 19:51 | Emergency (ER) | payer MEDICARE, MEDICAID | END 2021-06-03 21:30 | disposition left against medical advice (07) | LOC: ER 19:52 | DX: R10.9 Unspecified abdominal pain (principal); Z53.21 Procedure and treatment not carried out due to patient leaving prior to being seen by health care provider ==

== ENCOUNTER 2021-06-04 23:11 | Emergency (ER) | payer MEDICARE, MEDICAID ==
[~2021-06-04] VITALS: Ht 149.9 cm; Wt 48.2 kg
[2021-06-05 00:02] VITALS: BP 142/64
--- NOTE | 2021-06-05 00:05 | NUR ---
PATIENT RECEIVED DC INSTRUCTIONS AND ACKNOWLEDGED UNDERSTANDING. PATIENTS FRIEND NORMAN WAS OUTSIDE WAITING TO TAKE PATIENT HOME. VS WNL. PATIENT DC HOME.
[2021-06-05] MEDS ORDERED: ALBU8HFA PO (15:07)
== END 2021-06-05 00:06 | disposition home or self-care (01) ==
LOC: ER 23:11
DX: R07.89 Other chest pain (principal); R06.02 Shortness of breath; M79.606 Pain in leg, unspecified; I25.10 Atherosclerotic heart disease of native coronary artery without angina pectoris; I25.2 Old myocardial infarction; J44.9 Chronic obstructive pulmonary disease, unspecified; F17.210 Nicotine dependence, cigarettes, uncomplicated; Z87.01 Personal history of pneumonia (recurrent); Z90.89 Acquired absence of other organs; Z90.710 Acquired absence of both cervix and uterus; Z95.0 Presence of cardiac pacemaker; Z98.890 Other specified postprocedural states; Z72.89 Other problems related to lifestyle; Z59.0 Homelessness; Z88.0 Allergy status to penicillin; Z88.2 Allergy status to sulfonamides; Z88.5 Allergy status to narcotic agent; Z88.8 Allergy status to other drugs, medicaments and biological substances; Z79.82 Long term (current) use of aspirin; Z79.899 Other long term (current) drug therapy
CPT/HCPCS: 93005; 99283

== ENCOUNTER 2021-06-05 13:20 | Emergency (ER) | payer MEDICARE, MEDICAID ==
[~2021-06-05] VITALS: Ht 149.9 cm; Wt 42.2 kg
[~2021-06-05 13:20] MED LIST changes: -ALBU8HFA PO
[2021-06-05 14:23] VITALS: BP 146/74
[2021-06-05] MEDS ORDERED: ALBU8HFA PO (15:07)
== END 2021-06-05 15:40 | disposition home or self-care (01) ==
LOC: ER 13:22
DX: Z02.89 Encounter for other administrative examinations (principal); R07.89 Other chest pain; R06.02 Shortness of breath; R51.9 Headache, unspecified; I25.10 Atherosclerotic heart disease of native coronary artery without angina pectoris; I25.2 Old myocardial infarction; J44.9 Chronic obstructive pulmonary disease, unspecified; Z87.01 Personal history of pneumonia (recurrent); Z90.89 Acquired absence of other organs; Z90.710 Acquired absence of both cervix and uterus; Z95.0 Presence of cardiac pacemaker; Z98.890 Other specified postprocedural states; Z72.89 Other problems related to lifestyle; Z59.0 Homelessness; Z88.0 Allergy status to penicillin; Z88.2 Allergy status to sulfonamides; Z88.5 Allergy status to narcotic agent; Z79.82 Long term (current) use of aspirin; Z79.899 Other long term (current) drug therapy
CPT/HCPCS: 93005; 99283

== ENCOUNTER → 2021-06-05 | Emergency (ER) | payer MEDICARE, MEDICAID ==
[~2021-06-05] MED LIST changes: +ALBU8HFA PO
== END | disposition left against medical advice (07) ==
LOC: ER 18:05
DX: Z53.21 Procedure and treatment not carried out due to patient leaving prior to being seen by health care provider (principal)

== ENCOUNTER 2021-06-10 13:48 | Emergency (ER) | payer MEDICARE, MEDICAID ==
[~2021-06-10] VITALS: Ht 149.9 cm; Wt 46.4 kg
[~2021-06-10 13:48] MED LIST changes: +ALBU8HFA PO
[2021-06-10 19:13] VITALS: BP 163/71
== END 2021-06-10 19:42 | disposition home or self-care (01) ==
LOC: ER 13:49
DX: R07.89 Other chest pain (principal); R22.43 Localized swelling, mass and lump, lower limb, bilateral; M79.604 Pain in right leg; M79.605 Pain in left leg; F17.200 Nicotine dependence, unspecified, uncomplicated; F03.90 Unspecified dementia, unspecified severity, without behavioral disturbance, psychotic disturbance, mood disturbance, and anxiety; I25.10 Atherosclerotic heart disease of native coronary artery without angina pectoris; I25.2 Old myocardial infarction; J44.9 Chronic obstructive pulmonary disease, unspecified; Z87.01 Personal history of pneumonia (recurrent); Z95.0 Presence of cardiac pacemaker; Z90.49 Acquired absence of other specified parts of digestive tract; Z90.710 Acquired absence of both cervix and uterus; Z59.0 Homelessness; Z91.041 Radiographic dye allergy status; Z88.2 Allergy status to sulfonamides; Z88.0 Allergy status to penicillin; Z88.8 Allergy status to other drugs, medicaments and biological substances; Z79.82 Long term (current) use of aspirin; Z79.899 Other long term (current) drug therapy
CPT/HCPCS: 93005; 99283

== ENCOUNTER → 2021-06-14 | Emergency (ER) | payer MEDICARE, MEDICAID ==
[~2021-06-14] VITALS: Ht 149.9 cm; Wt 47.3 kg
[2021-06-14 02:48] VITALS: BP 147/71
== END | disposition left against medical advice (07) ==
LOC: ER 02:44
DX: R19.7 Diarrhea, unspecified (principal); Z53.21 Procedure and treatment not carried out due to patient leaving prior to being seen by health care provider